=== PATIENT | female | born 1950 | race Caucasian/White ===

== ENCOUNTER 2019-11-30 13:49 | Outpatient (CLI) | payer MEDICARE, OTHER, SELFPAY ==
--- NOTE | 2019-11-30 14:15 | USCV_ITS ---
Angela Lawler Age: 69 Gender: F : 1950 Exam Date: 11/30/2019 13:58 Ordering Phys: Cara Stone MD ([email or web address]) Technologist: Jeannette Nascimento [place] [facility] [place]: HISTORY: Varicose Veins PROCEDURES: The venous duplex Doppler examination of both lower extremities was performed in the standard fashion. The following venous structures were evaluated: common femoral vein, , The greater saphenous vein, femoral vein, and the popliteal vein. In addition, the posterior tibial and ssvserial compression, augmentation maneuvers, and spectral Doppler flow evaluation were performed. An evaluation for venous insufficiency was also completed. . FINDINGS: No DVT or Thrombus seen in any vessel examined. Only 1 point of reflux seen and that was at the SFJ. All images were done upright CONCLUSIONS No evidence of DVT in the above-mentioned identifiable veins. Significant venous reflux of greater than 500 ms was noted at the left saphenofemoral junction. Venous segment is measuring 0.66 cm at this region No other significant venous reflux were noted The venous dimensions, reflux time and depth from the surface are as mentioned above Dr Corine Vargas MD [facility] (Electronically Signed) Final Date: 30 Nov 2019 17:02 S
== END 2019-11-30 13:50 | disposition home or self-care (01) ==
LOC: RAD 13:51
PROVIDERS: Family Provider Registered Nurse; PCP Registered Nurse; Visit Provider Internal Medicine Cardiovascular Disease
DX: I83.93 Asymptomatic varicose veins of bilateral lower extremities (principal)
CPT/HCPCS: 93970

== ENCOUNTER → 2020-01-22 08:32 | Outpatient (BNVA) | payer MEDICARE, OTHER, SELFPAY | PROVIDERS: Family Provider Registered Nurse; PCP Registered Nurse; Visit Provider Internal Medicine Cardiovascular Disease | DX: I48.20 Chronic atrial fibrillation, unspecified (principal); I83.893 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 complications | CPT/HCPCS: 80048; 85025; 87635 ==

== ENCOUNTER → 2020-01-30 05:55 | Day surgery (SDC) | payer MEDICARE, OTHER, SELFPAY ==
[2020-01-25 12:23] VITALS: BMI 32.2
[2020-01-28 06:15] VITALS: BP 116/87; PULSE 98; RESP 17; TEMP 36.4; O2SAT 96
--- NOTE | 2020-01-28 07:09 | SUR.PREOP ---
PROCEDURE CANCEL [Patient brought back to [facility]. Prepped for procedure. Home medications verified. Patient noted to have taken Xarelto this morning. Dr Stone notified of findings, he reports that patient should reschedule with 24 hour minimum hold of xarelto. Patient notified of MD request and will comply with the need as she understands that the success of the procedure is related to the ability of her body to form clots. Patient dressed and discharged in stable condition. I will call her with reschedule date/time as scheduling is not open to coordinate the reschedule with ultrasound. I gave the patient the updated list of insructions and medication holds for procedure as follows: Hold Xarelto, Aspirin and Lasix for 24 hours prior to the procedure. She verbalized understanding.
--- NOTE | 2020-01-28 08:43 | SUR.PREOP ---
RESCHEDULE DATE/TIME Patient notified of procedure date/time. Rescheduled for TuesdayJanuary 29 at 0700 with a check in time of 0600. Patient aware of appointment date/time. One change per Dr Stone. Hold xarelto 48 hours prior to test instead of 24 hours. Patient made aware over the telphone. Verb Understanding. States she will be here tuesday at 6 am.
[2020-01-30 06:51] VITALS: BP 103/89; PULSE 82; RESP 16; TEMP 36.6; O2SAT 96
[2020-01-30] MEDS: diazePAM 5 mg Tablet 10 MG PO (07:10)
--- NOTE | 2020-01-30 08:27 | W.PM.OPSUD ---
Surgery/Procedure H&P Update DATE OF PROCEDURE: January 30, 2020 DATE H&P PERFORMED: 01/30/20 H&P UPDATE INFORMATION: I have examined patient prior to procedure and No changes to prior documentation PREOP DIAGNOSIS: Significant venous reflux with chronic venous insufficiency symptomatic failed conservative management PLANNED PROCEDURE: Operation Date: 01/30/20 07:00 Proposed Procedures p Venous Ablations(Not Applicable) - Cara Stone MD
--- NOTE | 2020-01-30 08:29 | P.SS_ITS ---
Short Stay Summary Providers Date of Admit/Discharge: 01/30/20 Attending Provider: Cara Stone MD Primary Care Provider: LYNETTE Robert Chief Complaint: venous ablation HPI History of Present Illness Angela Lawler is a 69 year old female past medical history significant for hypertension chronic atrial fibrillation history of TIA chronic varicose veins symptomatic with significant more than 500 ms of reflux and negative DVT who failed conservative management including compression stocking for more than 3 months was seen by me this morning for a radiofrequency ablation of left great saphenous vein. Patient has been explained all risk benefit and alternative for the procedure. She would like to proceed with it. Home Meds/Allergies Home Medications and Allergies Home Medications Medication Instructions Recorded Confirmed Type aspirin 81 mg tablet,delayed 81 mg PO ONCE 07/09/19 01/30/20 History release omeprazole 40 mg capsule,delayed 40 mg PO .COMPLEX 07/09/19 01/25/20 History release Allergies Allergy/AdvReac Type Severity Reaction Status Date / Time meperidine [From Demerol] AdvReac Mild Nausea,vomi Verified 01/29/20 09:36 ting PFSH Acute PFSH: Medical History (Updated 01/30/20 @ 08:43 by Cara Stone MD) Atrial fibrillation Advised to take sotalol. Resume Xarelto and 48 hours 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 complications Patient will going for left great saphenous vein ablation. All risk benefit and alternative for the procedure has been explained she would like to proceed with it.CEAP classification C4a Family History Sister Cancer Mother Hypertension Heart failure Father Stroke Social History Smoking and tobacco status: former smoker Alcohol intake: current Alcohol intake frequency: 0-2 Drinks per Day Lives independently: Yes Marital status: Current occupational status: retired Current gender identity: Female Vitals/I&O/Wt Last Vital Signs Temp 97.9 F 01/30/20 06:51 Pulse 82 01/30/20 06:51 Resp 16 01/30/20 06:51 BP 103/89 01/30/20 06:51 Pulse Ox 96 01/30/20 06:51 Physical Exam Narrative: EXAM NARRATIVE: GENERAL: Patient is alert, awake and oriented x3. NECK: No jugular vein distension. HEENT: No cyanosis. No icterus. No pallor. HEART: Irregularly irregular S1 and S2. No murmur, rub or gallop. LUNGS: Clear to auscultate bilaterally. ABDOMEN: Soft, nontender and nondistended. Positive bowel sounds. No guarding, rebound or tenderness. CENTRAL NERVOUS SYSTEM: Grossly nonfocal. EXTREMITIES: Lower extremities with 1+ edema bilaterally. Obvious varicose veins with staining bilaterally more on the left than right Hospital Course Admission Diagnoses: Patient was admitted for few hours as outpatient in the bed for venous ablation. She underwent left great saphenous venous ablation without any complication. She is being discharged. SSS Data Data Completed and Pending: Pending at discharge Category Date Time Status CV guide venous a blation Routine Ultrasound 01/30/20 06:00 Taken Diagnoses at Discharge Discharge Diagnosis (1) 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 complications: Status: Acute Problem details: Patient will going for left great saphenous vein ablation. All risk benefit and alternative for the procedure has been explained she would like to proceed with it.CEAP classification C4a (2) Atrial fibrillation: Status: Acute Problem details: Advised to take sotalol. Resume Xarelto and 48 hours Qualifiers: Atrial fibrillation type: unspecified chronic Qualified Code(s): I48.20 - Chronic atrial fibrillation, unspecified Discharge Plan Discharge Patient Disposition: Home, Self-Care Condition: Stable Prescriptions: Continued omeprazole 40 mg capsule,delayed release(DR/EC) 40 mg PO .COMPLEX RF: 0 aspirin 81 mg tablet,delayed release (DR/EC) 81 mg PO ONCE RF: 0 meclizine 12.5 mg tablet 25 mg PO Q6H PRN (Reason: dizziness) Qty: 20 RF: 0 pravastatin 40 mg tablet 40 mg PO DAILY Qty: 90 RF: 0 Xarelto 20 mg tablet 20 mg PO DAILY Qty: 90 RF: 0 furosemide 20 mg tablet See Rx Instructions .ROUTE .COMPLEX Qty: 15 RF: 0 triamterene-hydrochlorothiazid 37.5-25 mg tablet See Rx Instructions .ROUTE .COMPLEX Qty: 30 RF: 0 sotalol 120 mg tablet See Rx Instructions .ROUTE .COMPLEX Qty: 60 RF: 0 potassium chloride 20 mEq tablet,ER particles/crystals See Rx Instructions .ROUTE .COMPLEX Qty: 180 RF: 0 Discharge Orders: Discharge Order (Routine); Ordered 01/30/20 Ordered By: Cara Stone Referrals: Remberto Roberson FNP [Primary Care Provider] - Discharge Diet: Cardiac Discharge Activity: Increase activity as tolerated Patient Instructions: Ablation Home Discharge Instructions, Varicose Veins Attestations Medical Necessity Statement*: I am not expecting patient's stay for more than few hours Time Spent in Patient Care*: greater than 30 min Specific Discharge Activities: Specific discharge activities: educating patient and educating and/or supporting family/caregiver Quality Metrics Clinical Quality Measures: During this hospital stay, did patient experience: None Coding Level of Care Code Established Pt Acute Replanting Machine Crew for Chg Fwd Patient Type Established Medical Decision Making Moderate Complexity Diagnoses 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 complications I83.893 Atrial fibrillation I48.20 Atrial fibrillation type: unspecified chronic
--- NOTE | 2020-01-30 08:45 | P.PCN_ITS ---
Procedure Note: Date of procedure: 01/30/20 Pre-procedure diagnosis: Varicose vein symptomatic CEAP classification 4a Performing Provider: Cara Stone Estimated blood loss (mL): 1 Pathology: none sent Condition: stable Disposition: observation Other Information: The insufficient left great saphenous vein verified by ultrasound and diagrammed on the overlying skin. The varicose tributary veins and suitable access sites were identified and mapped. The affected area prepped and draped in the usual sterile fashion. The patient was placed in reverse Trendelenburg position. Tumescent was instilled in the skin overlying the access site for local anesthesia. The vein was accessed PROXIMAL, MID, DISTAL - THIGH/CALF using ultrasound guidance and the Seldinger technique, a guidewire was introduced through the needle, which was then exchanged over the guidewire for a 7F sheath. The RF catheter was placed on the sterile field, flushed and wiped down, prepared, and connected by a sterile cable. The patient was placed in Trendelenburg position. After RF catheter position was verified by ultrasound, tumescent anesthesia was infiltrated, under ultrasound guidance, precisely into the perivenous compartment along the entire length of vein. After the RF catheter position was again confirmed with ultrasound imaging, and under direct external compression along the length of the heating element, RF energy was applied. The vein was segmentally ablated until the treatment length is completed. Device temperature was maintained at 120 +/- degrees C with an initial power level of 40W dropping to below 20W for each treatment. Total vein length treated 48 cm. Total cycles of RF [14]. Time 4 minutes and 40 seconds. Repeat ultrasound of the left great saphenous vein was performed, confirming successful treatment. The catheter and sheath were withdrawn and hemostasis established with direct pressure. After assuring hemostasis, the skin incision over the saphenous vein was closed with a bandage and graduated compression stockings was applied from the level of the foot to the most proximal length of the thigh. Tumescent used 300 mL Tumescent waste 200 mL Normal saline waste 240 mL Lidocaine waste 12 mL Coding Level of Care Code Acute Band Straightener for Julian Hays
[2020-01-30 09:19] VITALS: BP 91/71; PULSE 99; RESP 16; O2SAT 95
--- NOTE | 2020-01-30 09:19 | PC.NURSE ---
Discharged Venous ablation complete on LLE, pt tolerated procedure well. LLE wrapped with 2 layer coflex wrap, no drainage noted. Discharge instructions reviewed with pt and all questions answered. Taken to lobby via w/c and discharged home with friend via private vehicle.
== END | disposition home or self-care (01) ==
PROVIDERS: PCP Registered Nurse; Visit Provider Internal Medicine Cardiovascular Disease
DX: I83.893 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 complications (principal); I48.20 Chronic atrial fibrillation, unspecified; Z79.01 Long term (current) use of anticoagulants
CPT/HCPCS: 12345; 36475; C1769; C1888; C1894; J7040; J7050

== ENCOUNTER 2020-02-04 10:27 | Outpatient (CLI) | payer MEDICARE, OTHER, SELFPAY ==
--- NOTE | 2020-02-04 11:03 | USCV_ITS ---
Angela Lawler Age: 69 Gender: F : 1950 Exam Date: 02/04/2020 10:57 Ordering Phys: Cara Stone MD ([email or web address]) Technologist: Hussain Monteiro Exam Location: [facility] – [place] Indication: POST ABLATION HISTORY: POST LT ABLATION PROCEDURES: Venous duplex imaging was performed in only the left lower extremity. The following venous structures were evaluated: common femoral vein, profunda vein, proximal portion of the greater saphenous vein, superficial femoral vein, and the popliteal vein. FINDINGS: NORMAL POST ABLATION ANATOMY GOOD FLOW IN EPIGASIC VEIN NORMAL ABLATED GSAPH LT. NO DVT CONCLUSIONS 1. Patent saphenofemoral junction and inferior epigastric vein. 2. The greater saphenous vein appears to be ablated. 3. No evidence of DVT in the above-mentioned identifiable veins Dr Corine Vargas MD [facility] (Electronically Signed) Final Date: 06 February 2020 00:37 S
== END 2020-02-04 10:28 | disposition home or self-care (01) ==
PROVIDERS: PCP Registered Nurse; Visit Provider Internal Medicine Cardiovascular Disease
DX: Z98.890 Other specified postprocedural states (principal); I83.893 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 complications
CPT/HCPCS: 93970

== ENCOUNTER 2020-07-08 09:50 | Outpatient (CLI) | payer MEDICARE, OTHER, SELFPAY ==
--- NOTE | 2020-07-08 09:56 | MM_ITS ---
WS: [id number] Exam: [id number] Date/Time of Exam: 07/08/2020 10:01 AM Reason For Exam: SCREENING VIEWS: MLO and CC views both breasts. Comparison made with prior exam of 05/05/2017. Findings: There was no sign of mass, architectural distortion or suspicious calcification in either breast. He terogeneously dense MM/[id number] Impression: BI-RADS: 2-Benign FOLLOW-UP: 1 Year Follow-up This mammogram was also analyzed by the Computer Aided Detection System R2 Imag e Credit Office Manager.
== END 2020-07-08 09:51 | disposition home or self-care (01) ==
LOC: RADSHAW 09:55
PROVIDERS: PCP Registered Nurse; Visit Provider Registered Nurse
DX: Z12.31 Encounter for screening mammogram for malignant neoplasm of breast (principal)
CPT/HCPCS: 77067

== ENCOUNTER 2021-05-21 14:52 | Outpatient (CLI) | payer MEDICARE, OTHER, SELFPAY ==
--- NOTE | 2021-05-21 15:45 | USCV_ITS ---
Angela Lawler Age: 70 Gender: F : 1950 Exam Date: 05/21/2021 15:03 Ordering Phys: Akila Roldan Technologist: Jeannette Nascimento [place] [facility] [place]ication: CHRONIC ATRIAL FIBRILLATION BP: 125 / 70 HR: 112 Rhythm: Sinus Technical Quality: Technically difficult study MEASUREMENTS (Male / Female) Normal Values 2D ECHO LV Diastolic Diameter PLAX 2.0 cm 4.2 - 5.9 / 3.9 - 5.3 cm LV Systolic Diameter PLAX 2.5 cm LV Chamber Size 2.5 cm IVS Diastolic Thickness 1.2 cm 0.6 - 1.0 / 0.6 - 0.9 cm IVS Systolic Thickness 1.0 cm LVPW Diastolic Thickness 1.3 cm 0.6 - 1.0 / 0.6 - 0.9 cm LVPW Systolic Thickness 1.4 cm RV Chamber Size 2.7 cm LVOT Diameter 2.0 cm LV Ejection Fraction 2D Teich 59.7 % LA Diameter 3.4 cm LA Width 2.9 cm LA Height 4.8 cm RA Width 3.4 cm RA Height 4.6 cm Aorta at Sinotubular Diameter 2.9 cm M-MODE LV Diastolic Diameter MM 4.3 cm 4.2 - 5.9 / 3.9 - 5.3 cm LV Systolic Diameter MM 3.0 cm LV Ejection Fraction MM Teich 58.1 % IVS Diastolic Thickness MM 1.0 cm 0.6 - 1.0 / 0.6 - 0.9 cm IVS Systolic Thickness MM 1.0 cm LVPW Diastolic Thickness MM 0.9 cm 0.6 - 1.0 / 0.6 - 0.9 cm LVPW Systolic Thickness MM 1.2 cm Aortic Annulus Diameter 3.4 cm LA Ao Ratio MM 0.8 MV E Point Septal Separation 0.3 cm DOPPLER LVOT Peak Velocity 91.0 cm/s MV Area PHT 3.3 cm squared Mitral E to A Ratio 46.7 MV E' Velocity 58.5 cm/s Mitral E to MV E' Ratio 11.7 Mitral E to LV E' Lateral Ratio 12.7 Mitral E to LV E' Septal Ratio 10.9 TR Peak Velocity 186.0 cm/s TR Peak Gradient 13.8 mmHg TR Mean Velocity 153.4 cm/s TR Mean Gradient 10.1 mmHg TR Velocity Time Integral 46.1 cm TV Peak E Velocity 74.0 cm/s PV Peak Velocity 77.0 cm/s FINDINGS Left Ventricle Normal left ventricular size. LV systolic function is normal with EF of 55-60%. No regional wall motion abnormalities. Diastolic function is indeterminate because of atrial fibrillation Right Ventricle The right ventricle is normal in size and function. Right Atrium The right atrium is normal in size. Left Atrium The left atrium is normal in size. Mitral Valve Mild mitral annular calcification without significant stenosis or prolapse. There is trace mitral regurgitation. Aortic Valve Structurally normal aortic valve without significant sclerosis or stenosis. There is no aortic regurgitation. Tricuspid Valve Structurally normal tricuspid valve without significant stenosis. Mild tricuspid regurgitation. Pulmonary artery systolic pressure is normal. Pulmonic Valve Structurally normal pulmonic valve without significant stenosis. There is no pulmonic regurgitation. Pericardium Normal pericardium without effusion. Aorta Normal ascending aorta dimension. CONCLUSIONS Technically limited quality echocardiogram because of poor ultrasonic windows. LV systolic function is normal with EF of 55 to 60%. Diastolic function is indeterminate because of atrial fibrillation. Trace mitral regurgitation is seen. Mild tricuspid regurgitation. No comparison studies are available. Tim Hernandez MD (Electronically Signed) Final Date: 25 May 2021 10:05 S
== END 2021-05-21 14:53 | disposition home or self-care (01) ==
LOC: RAD 14:53
PROVIDERS: PCP Registered Nurse; Visit Provider Nurse Practitioner Family
DX: I48.20 Chronic atrial fibrillation, unspecified (principal); I08.1 Rheumatic disorders of both mitral and tricuspid valves
CPT/HCPCS: 93306

== ENCOUNTER → 2021-06-16 10:31 | Outpatient (BNVA) | payer MEDICARE, OTHER, SELFPAY | PROVIDERS: PCP Registered Nurse; Visit Provider Internal Medicine Cardiovascular Disease | DX: I48.20 Chronic atrial fibrillation, unspecified (principal); I83.893 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 complications | CPT/HCPCS: 87635 ==

== ENCOUNTER 2021-06-22 11:03 | Day surgery (SDC) | payer MEDICARE, OTHER, SELFPAY ==
[2021-06-19 14:24] VITALS: BMI 33.5
--- NOTE | 2021-06-22 11:15 | ECG_ITS ---
[facility] Test Date: 2021-06-22 Pat Name: Angela Lawler Department: Room: Gender: Female Area Manager: : 1950 Requested By: Cara Stone Order Number: [id number] Marcy MD: Corine Vargas M.D. Measurements Intervals [place] Rate: 117 P: CA: QRS: 7 QRSD: 81 T: 19 QT: 338 QTc: 472 Interpretive Statements ATRIAL FIBRILLATION WITH RAPID VENTRICULAR RESPONSE MINIMAL ST DEPRESSION [0.025+ mV ST DEPRESSION] ABNORMAL RHYTHM ECG No previous ECG available for comparison Electronically Signed On 06-24-2021 0:16:33 GRAIN BROKER AND MARKET OPERATOR by Corine Vargas M.D. [id number]
[2021-06-22 11:30] VITALS: BP 118/96; PULSE 114; RESP 18; TEMP 36.4; O2SAT 96
[2021-06-22] MEDS: sodium chloride 0.9% 1,000 ML 30 ML IV (11:49)
--- NOTE | 2021-06-22 12:08 | ANES.PREANE2 ---
Pre-Anesthetic Assessment Pre-Anesthetic Assessment: Height/Weight: Height 1.68 m Weight 94.347 kg Temp Pulse Resp BP Pulse Ox 97.5 F L 114 H 18 118/96 96 06/22/21 11:30 06/22/21 11:30 06/22/21 11:30 06/22/21 11:30 06/22/21 11:30 Preop Diagnosis: Significant venous reflux with chronic venous insufficiency symptomatic failed conservative management Proposed Procedure: Operation Date: 06/22/21 12:00 Proposed Procedures p Cardioversion(Not Applicable) - Cara Stone MD Was Beta Jarred taken within 24 hours: Yes Was Clonidine taken within 24 hours: N/A Last intake: Intake Last Liquid Date 06/21/21 Last Liquid Time 18:00 Last Solid Date 06/21/21 Last Solid Time 17:00 Social: Social History: No alcohol and No tobacco Exam: Pre-Anes Outpt Exam: alert, oriented x 3, clear to auscultation bilaterally and regular rate & rhythm Airway: Submandibular: WNL Cervical ROM: WNL MP: 2 CV/HEM: CV/HEM: Arrythmia GI: GI: GERD Metabolic: Metabolic: Hyperlipidemia Anesthetic Plan: ASA status: 3 Anesthesia: MAC Risk of > 500 ml blood loss (7ml/kg in children): No Meds/Allergies Current Medications: Current Medications Generic Name Dose Route Start Last Admin Trade Name Freq PRN Reason Stop Dose Admin Sodium Chloride 1,000 mls @ 30 ml s/hr 06/22/21 11:15 06/22/21 11:49 Sodium Chloride 0.9% IV 06/23/21 11:14 30 mls/hr .Q24H TRUDY Administration PFSH Anesthesia PFSH: Medical History Atrial fibrillation Enrolled in chronic care management GERD (gastroesophageal reflux disease) 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 complications Surgical History H/O tubal ligation History of cataract surgery 2010 History of tonsillectomy Family History Sister Cancer Mother Hypertension Heart failure Father Stroke Social History Alcohol intake: current Alcohol intake frequency: 0-2 Drinks per Day Lives independently: Yes Marital status: Current occupational status: retired Current gender identity: Female Data Anesthesia Cardiac Studies: Echocardiogram 05/21/21
--- NOTE | 2021-06-22 12:33 | ECG_ITS ---
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 Measurements Intervals [place] Rate: 108 P: GA: QRS: 8 QRSD: 90 T: 8 QT: 362 QTc: 487 Interpretive Statements ATRIAL FIBRILLATION WITH RAPID VENTRICULAR RESPONSE MINIMAL ST DEPRESSION [0.025+ mV ST DEPRESSION] ABNORMAL RHYTHM ECG Compared to ECG 06/22/2021 11:38:17 No significant changes Electronically Signed On 06-24-2021 0:16:54 MONEY MARKET CLERK by Corine Vargas M.D. [id number]
--- NOTE | 2021-06-22 12:39 | W.PM.OPSFHP ---
Same Day Surgery H&P Indication for Procedure/HPI DATE OF PROCEDURE: June 22, 2021 CHIEF COMPLAINT/INDICATIONFOR SURGICAL PROCEDURE: Symptomatic atrial fibrillation difficult to control PREOP DIAGNOSIS: Significant venous reflux with chronic venous insufficiency symptomatic failed conservative management PLANNED PROCEDRUE: Operation Date: 06/22/21 12:00 Proposed Procedures p Cardioversion(Not Applicable) - Cara Stone MD 70-year-old female atrial fibrillation difficult to control despite of optimization of medicine allergic to calcium channel lang due to leg swelling on sotalol for long period of time she is taking anticoagulation in the form of rivaroxaban 20 mg daily for the last more than 2 years without any interruption. She denies any prior TIA or stroke.CHADVASc score less than3, since she continues to have reliable continuation of persistent rivaroxaban chances of stroke from DC cardioversion is less however still 5%. Patient understood the risk for stroke permanent disability and would like to proceed with it. I have personally explained patient all risk benefit and already for the procedure. She will be given propofol by anesthesia. Please see anesthesia note. Medications/Allergies* Home Medications Medication Instructions Recorded Confirmed Type aspirin 81 mg tablet,delayed 81 mg PO DAILY tab 01/05/21 06/22/21 History release furosemide 10 mg PO DAILY 06/19/21 06/22/21 History omeprazole 40 mg PO DIRECTED 06/19/21 06/22/21 History pravastatin 40 mg PO DAILY 06/19/21 06/22/21 History rivaroxaban [Xarelto] 20 mg PO DAILY 06/19/21 06/22/21 History sotalol 120 mg PO BID 06/19/21 06/22/21 History triamterene-hydrochlorothiazid 1 tab PO DAILY 06/19/21 06/22/21 History Allergies/Adverse Reactions Allergy/AdvReac Type Severity Reaction Status Date / Time meperidine [From Demerol] AdvReac Mild Nausea,vomi Verified 06/19/21 14:19 ting Current Medications: Generic Name Dose Route Start Last Admin Trade Name Freq PRN Reason Stop Dose Admin Sodium Chloride 1,000 mls @ 30 mls/hr 06/22/21 11:15 06/22/21 11:49 Sodium Chloride 0.9% IV 06/23/21 11:14 30 mls/hr .Q24H TRUDY Administration Pertinent History/Comorbid Conditions* Medical History (Updated 05/26/21 @ 10:05 by LYNETTE Robert) Atrial fibrillation Enrolled in chronic care management GERD (gastroesophageal reflux disease) 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 complications Surgical History (Updated 05/15/20 @ 09:47 by LYNETTE Robert) H/O tubal ligation History of cataract surgery 2009 History of tonsillectomy Family History (Updated 07/09/19 @ 14:12 by Zabrina Smith LPN) Heart failure Mother Cancer Sister Hypertension Mother Stroke Father Social History Alcohol intake: current Alcohol intake frequency: 0-2 Drinks per Day Lives independently: Yes Marital status: Current occupational status: retired Current gender identity: Female Pertinent Exam Findings alert, oriented x 3, clear to auscultation bilaterally and regular rate & rhythm (Irregularly irregular) Recommendations Surgery/Procedure today Coding Level of Care Code Acute Laboratory Technical Specialist for Julian Hays
--- NOTE | 2021-06-22 12:54 | W.PM.OPSUD ---
Surgery/Procedure H&P Update DATE OF PROCEDURE: June 22, 2021 DATE H&P PERFORMED: 06/22/21 H&P UPDATE INFORMATION: I have reviewed H&P completed within last 30 days, I have examined patient prior to procedure and No changes to prior documentation PREOP DIAGNOSIS: Uncontrolled symptomatic atrial fibrillation, electrical cardioversion PLANNED PROCEDURE: Operation Date: 06/22/21 12:00 Proposed Procedures p Cardioversion(Not Applicable) - Cara Stone MD
--- NOTE | 2021-06-22 13:31 | PM.PROC ---
Procedure Note: Date of procedure: 06/22/21 Other Information: Reason for cardioversion: Uncontrolled symptomatic atrial fibrillation After explaining in detail all risk benefit and alternative for the procedure under sterilized condition propofol was administered by anesthesia colleagues. After confirming deep sedation synchronized 150 J biphasic shock was delivered to the patient. Patient converted into sinus rhythm for 20 seconds and went back into A. fib with rapid ventricle response. Second shock of 150 J using biphasic defibrillator was delivered. Patient did not convert into sinus rhythm. We then increase setting to 200 J after conversion being deep anesthesia third set of electrical cardioversion defibrillator impulse was delivered patient converted into sinus rhythm for 5 seconds and went back into atrial fibrillation. At this point we stopped the procedure. It was unsuccessful. Will refer patient for A. fib ablation. I will try to add verapamil to the regimen see whether it can cause her less swelling of the legs. Other option is referring the patient for ablation. Coding Level of Care Code Acute Electronic Warfare Linguist for Julian Hays
[2021-06-22 13:33] VITALS: BP 107/74; PULSE 130; RESP 18; TEMP 36.6; O2SAT 93
[2021-06-22 13:40] VITALS: BP 114/77; PULSE 114; RESP 18; O2SAT 93
--- NOTE | 2021-06-22 15:03 | ANE.PACU2 ---
Inpatient post-anesthesia follow up: Airway intact: Yes Vital signs: Temperature 97.8 F Pulse Rate 114 Respiratory Rate 18 Blood Pressure 114/77 Pulse Oximetry 93 Oxygen Delivery Me thod Room Air Oxygen Flow Rate Fraction of Inspir ed Oxygen Hydration adequate: Yes Nausea and vomiting: No Pain level: 1 Mental status: Baseline
== END 2021-06-22 14:32 | disposition home or self-care (01) ==
PROVIDERS: PCP Registered Nurse; Visit Provider Internal Medicine Cardiovascular Disease
PROC: 5A2204Z Restoration of Cardiac Rhythm, Single (ICD-10-PCS; principal; 2021-06-22 12:00)
DX: I87.2 Venous insufficiency (chronic) (peripheral) (principal); I48.91 Unspecified atrial fibrillation; M79.89 Other specified soft tissue disorders; I83.893 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 complications; K21.9 Gastro-esophageal reflux disease without esophagitis; E78.5 Hyperlipidemia, unspecified
CPT/HCPCS: 92960; 93005; 96360; 96361; J2704; J3490; J7030

== ENCOUNTER 2021-08-06 13:42 | Outpatient (CLI) | payer MEDICARE, OTHER, SELFPAY ==
--- NOTE | 2021-08-06 14:30 | MM_ITS ---
WS: [id number] BILATERAL DIGITAL SCREENING MAMMOGRAPHY WITH CAD CLINICAL INFORMATION: Z12.31 - Encounter for screening mammogram for malignant ... HISTORY: Screening mammogram. No current complaints. COMPARISON: July 08, 2020 TECHNIQUE: Bilateral CC and MLO views. FINDINGS: The breasts are composed of heterogeneous fibroglandular density tissue, which can limit the detectio n of small underlying mass lesions. Punctate and lucent centered calcifications. No suspicious mass, asymmetry, calcifications, or architectural distortion. No evidence of malignancy. MM/[place] [id number] IMPRESSION: BI-RADS: 2-Benign FOLLOW UP: 1 Year Follow-up Recommend return to annual screening mammography.
== END 2021-08-06 13:43 | disposition home or self-care (01) ==
LOC: RADSHAW 13:48
PROVIDERS: PCP Registered Nurse; Visit Provider Registered Nurse
DX: Z12.31 Encounter for screening mammogram for malignant neoplasm of breast (principal)
CPT/HCPCS: 77067

== ENCOUNTER 2021-08-25 09:15 | Outpatient (CLI) | payer MEDICARE, OTHER, SELFPAY ==
--- NOTE | 2021-08-25 09:30 | XR_ITS ---
WS: [id number] SCREENING DEXA SCAN [place] CLINICAL INFORMATION: M81.0 - Age-related osteoporosis without current patholog... COMPARISON: None. FINDINGS: The L1-L4 bone mineral density measures 1.885 g/cm2. This corresponds to a T score score of 5.9 and Z score of 6.4. Left femoral neck bone mineral density measures 1.094 g/cm2. This corresponds to a T score of 0.7 and Z score of 1.5. Right femoral neck bone mineral density measures 1.047 g/cm2. This corresponds to a T score 0.3of and Z score of 1.1. Mean femoral neck bone mineral density measures 1.071 g/cm2. This corresponds to a T score of 0.5 and Z score of 1.3. XR/XR DEXA axial skeleton* [id number] IMPRESSION: Normal bone mineralization. Patient's FRAX calculated 10 year probability for major osteoporotic fracture i s 12.0 % and osteoporotic hip fracture is 1.0%.
== END 2021-08-25 09:16 | disposition home or self-care (01) ==
PROVIDERS: PCP Registered Nurse; Visit Provider Registered Nurse
DX: M81.0 Age-related osteoporosis without current pathological fracture (principal)
CPT/HCPCS: 77080

== ENCOUNTER → 2021-09-17 10:11 | Outpatient (BNVA) | payer MEDICARE, OTHER, SELFPAY | PROVIDERS: PCP Registered Nurse; Visit Provider Internal Medicine Cardiovascular Disease | DX: I48.20 Chronic atrial fibrillation, unspecified (principal); E78.5 Hyperlipidemia, unspecified; I10 Essential (primary) hypertension | CPT/HCPCS: 99214; 99215 ==

== ENCOUNTER → 2022-04-08 15:10 | Outpatient (BNVA) | payer MEDICARE, OTHER, SELFPAY | PROVIDERS: PCP Registered Nurse; Visit Provider Internal Medicine Cardiovascular Disease | DX: Z79.01 Long term (current) use of anticoagulants (principal); R53.83 Other fatigue; R06.02 Shortness of breath; N18.9 Chronic kidney disease, unspecified; I48.20 Chronic atrial fibrillation, unspecified; E78.5 Hyperlipidemia, unspecified; I10 Essential (primary) hypertension; I83.93 Asymptomatic varicose veins of bilateral lower extremities; Z87.891 Personal history of nicotine dependence | CPT/HCPCS: 36415; 80048; 83880; 84443; 85025; 99214 ==

== ENCOUNTER 2022-04-13 08:22 | Outpatient (RCR) | payer MEDICARE, OTHER, SELFPAY | END 2022-05-10 23:59 | disposition home or self-care (01) | LOC: SPT 08:22 | PROVIDERS: PCP Registered Nurse; Visit Provider Registered Nurse | DX: M25.552 Pain in left hip (principal); M76.62 Achilles tendinitis, left leg | CPT/HCPCS: 97110; 97162 ==

== ENCOUNTER 2022-05-11 06:00 | Outpatient (RCR) | payer MEDICARE, OTHER, SELFPAY | END 2022-06-09 23:59 | disposition home or self-care (01) | LOC: SPT 06:00 | PROVIDERS: PCP Registered Nurse; Visit Provider Registered Nurse | DX: M25.552 Pain in left hip (principal); M76.62 Achilles tendinitis, left leg | CPT/HCPCS: 97110 ==

== ENCOUNTER → 2022-05-20 13:48 | Outpatient (BNVA) | payer MEDICARE, OTHER, SELFPAY | PROVIDERS: PCP Registered Nurse; Referring Provider Registered Nurse; Visit Provider Physician Assistant | DX: M54.42 Lumbago with sciatica, left side (principal); M51.37 Other intervertebral disc degeneration, lumbosacral region; M47.816 Spondylosis without myelopathy or radiculopathy, lumbar region; M41.56 Other secondary scoliosis, lumbar region; M43.16 Spondylolisthesis, lumbar region; M48.57XA Collapsed vertebra, not elsewhere classified, lumbosacral region, initial encounter for fracture | CPT/HCPCS: 72110; 99203 ==

== ENCOUNTER 2022-06-07 08:20 | Outpatient (CLI) | payer MEDICARE, OTHER, SELFPAY ==
--- NOTE | 2022-06-07 09:15 | MR_ITS ---
WS: [id number] MRI LUMBAR SPINE NONCONTRAST HISTORY: Chronic back pain radiating down LEFT leg. COMPARISON: 04/26/2018 TECHNIQUE: Sagittal and axial multisequence imaging is submitted. Mild increase in the cervical lordosis and thoracic kyphosis. Mild degenerative disc disease and face t arthritis at C4-5 and C5-6 encroaching into the central cervical canal. Mild increase in the lumbar lordosis with LEFT curvature. Disc spaces are narrowed and desiccated throughout but most significant at L2-3, L3-4, L4-5 and L5-S1 . Marrow edema involving a large portion of the L4 and L5 vertebral bodies. Endplate sclerosis at L2 and L3. L2 retrolisthesis by 5.5 mm, L3 retrolisthesis by 5.0 mm and L4 retrolisthesis by 3.0 mm. Similar to the prior study. No acute fractures. Conus terminates normally at L1-2 disc level. L1-L2: Negative. No stenosis. L2-L3: Retrolisthesis of L2, mild diffuse disc bulging with moderate facet arthritis. Facet joint art hritis and ligamentum flavum arthritis encroaching into the thecal sac and foramina. Severe stenosis of the RIGHT foramen and subarticular recess. Stenosis appears increased since the prior study. No si gnificant stenosis on the LEFT. Mild central stenosis. The traversing RIGHT L3 nerve root is being di splaced and compressed. L3-L4: Diffuse annular disc bulging and osteophytic ridging. Marked ligamentum flavum and facet arthr itis. Increase in epidural fat. Severe central, bilateral subarticular recess and foraminal stenosis similar to the prior study. Less fluid in the facet joints. L4-L5: Diffuse annular disc bulging and osteophytic ridging. New moderate size central disc protrusio n with significant encroachment into the thecal sac and greatest involving the LEFT lateral recess an d foramina. Marked ligamentum flavum and facet arthritis. There is severe central, bilateral subartic ular recess and foraminal stenosis which has all progressed since the prior study. Fluid in the LEFT facet joint. L5-S1: Mild osteophytic ridging with ligamentum flavum and facet arthritis. Moderate to severe bilate ral foraminal stenosis predominantly due to osteophyte disease. Stenosis has also progressed since prior study. Previously described synovial cyst at L3 and L4 have decreased in size or resolved. Small LEFT renal cysts. MR/MR lumbar spine wo con* [id number] IMPRESSION: 1. Progression of stenoses and degenerative disc and facet arthritis throughou t the lumbar spine since 04/26/2018. 2. Severe RIGHT foraminal and RIGHT subarticular recess stenosis at L2-3 with progression since the prior study. Significant encroachment upon the RIGHT L3 n erve root. 3. Severe central, bilateral subarticular recess and foraminal stenosis at L3- 4. 4. New moderate size central disc protrusion at L4-5 with significant encroach ment into the thecal sac and LEFT lateral recess and foramina. Severe central, bilateral subarticular recess and foraminal stenosis at L4-5 has progressed. 5. Moderate to severe bilateral foraminal stenosis at L5-S1 due to disc and os teophyte disease. Mild progression since the prior study. 6. Retrolisthesis L2, L3 and L4 again identified and stable.
== END 2022-06-07 08:21 | disposition home or self-care (01) ==
LOC: RAD 08:23
PROVIDERS: PCP Registered Nurse; Visit Provider Physician Assistant
DX: M48.061 Spinal stenosis, lumbar region without neurogenic claudication (principal); M51.26 Other intervertebral disc displacement, lumbar region; M48.07 Spinal stenosis, lumbosacral region
CPT/HCPCS: 72148

== ENCOUNTER 2022-06-10 06:00 | Outpatient (RCR) | payer MEDICARE, OTHER, SELFPAY | END 2022-06-29 23:59 | disposition home or self-care (01) | LOC: SPT 06:00 | PROVIDERS: PCP Registered Nurse; Visit Provider Registered Nurse | DX: M54.42 Lumbago with sciatica, left side (principal); Z98.1 Arthrodesis status | CPT/HCPCS: 99214 ==

== ENCOUNTER 2022-06-21 13:47 | Inpatient (IN) | payer MEDICARE, OTHER, SELFPAY ==
[2022-06-17 09:35] VITALS: BMI 35.5
--- NOTE | 2022-06-17 10:31 | ECG_ITS ---
[facility] Test Date: 2022-06-17 Pat Name: Angela Lawler Department: Room: Gender: Female Manager Icu: : 1950 Requested By: Willie Suazo Order Number: [id number] Marcy MD: Tim Hernandez M.D. Measurements Intervals [place] Rate: 84 P: 0 AL: 0 QRS: 43 QRSD: 89 T: 55 QT: 366 QTc: 433 Interpretive Statements ATRIAL FIBRILLATION MINIMAL ST DEPRESSION [0.025+ mV ST DEPRESSION] Compared to ECG 06/22/2021 13:39:01 No significant changes Electronically Signed On 06-17-2022 13:48:09 AUDIT CLERKS SUPERVISOR by Tim Hernandez M.D. [id number]
[2022-06-17 10:35] LABS: Basophils # 0.1 10^3/uL (0.0-0.1); Basophils % 0.8 %; Eosinophils # 0.3 10^3/uL (0.0-0.8); Eosinophils % 5.4 %; Hematocrit 40.6 % (37.0-47.0); Hemoglobin 12.6 g/dL (11.5-15.3); Lymphocytes # 1.1 10^3/uL (0.8-4.8); Lymphocytes % 18.6 %; Mean Corpuscular Hemoglobin 27.3 pg (28.0-34.0); Mean Corpuscular Volume 87.9 fl (81-99); Mean Platelet Volume 9.3 fL (7.4-10.4); Monocytes # 0.6 10^3/uL (0.2-0.9); Monocytes % 9.3 %; Neutrophils # 4.02 10^3/uL (1.8-7.7); Neutrophils % 65.6 %; Nucleated Red Blood Cells % 0 %; Platelet Count 555 10^3/cmm (130-400); Red Blood Count 4.62 10^6/uL (4.1-5.3); Red Cell Distribution Width 14.6 % (12.1-15.1); White Blood Count 6.1 10^3/uL (4.0-10.0)
[2022-06-17 11:14] LABS: Anion Gap 17.4 (5-19); Blood Urea Nitrogen 15 mg/dL (8-23); Calcium 9.5 mg/dL (8.5-10.5); Carbon Dioxide 28 mmol/L (22-29); Chloride 97 mmol/L (98-107); Glucose 120 mg/dL (65-115); Osmolality Calculated 290 mOsm/kg (285-295); Potassium 3.4 mmol/L (3.5-5.1); Sodium 139 mmol/L (136-145)
--- NOTE | 2022-06-17 13:33 | P.ANESASSM_ITS ---
Pre-Anesthetic Assessment Height/Weight: Height 1.68 m Weight 99.79 kg Preop Diagnosis: Uncontrolled symptomatic atrial fibrillation, electrical cardioversion Operation Date: 06/21/22 10:30 Proposed Procedures p Spinal Fusion L1-SACRUM [id number](Not Applicable) - Vasquez Sosa DO Familial anesthetic complications: none Was Beta Jarred taken within 24 hours: Yes Was Clonidine taken within 24 hours: N/A Social No alcohol and No tobacco Exam alert, oriented x 3 and clear to auscultation bilaterally irregular HR Airway Submandibular: within normal limits Cervical ROM: within normal limits Mallampati: Class II Dentition: partials CV/HEM Atrial Fibrillation and Hypertension GI Gastroesophageal Reflux Disease Metabolic Hyperlipidemia and Morbid Obesity Musc/skel Lower Back Pain Neuropsych Transient Ischemic Attack Anesthetic Plan ASA status: 3 Anesthesia: General Other: Discussed a.line, transfusion and possible ICU admission Medications/Allergies Home Medications Medication Instructions Recorded Confirmed Last Taken Type furosemide 20 mg tablet 10 - 20 mg PO DAILY #90 tabs 10/27/21 06/17/22 Unknown Rx metoprolol tartrate 50 mg tablet 50 mg PO BID 10/27/21 06/17/22 Unknown History triamterene 37.5 See Rx Instructions .Route 10/27/21 06/17/22 Unknown Rx mg-hydrochlorothiazide 25 mg tablet .COMPLEX #90 tabs rivaroxaban 20 mg tablet (Xarelto) See Rx Instructions .Route 04/19/22 06/17/22 Unknown Rx .COMPLEX #90 tabs pantoprazole 20 mg tablet,delayed 20 mg PO DAILY 30 days #30 tabs 06/04/22 06/17/22 Unknown Rx release tramadol 50 mg tablet 50 mg PO BID PRN pain 30 days #20 06/04/22 06/17/22 Unknown Rx tabs potassium chloride 20 mEq See Rx Instructions .Route 06/14/22 06/17/22 Unknown Rx tablet,extended release(part/cryst) .COMPLEX #180 tabs pravastatin 40 mg tablet See Rx Instructions .Route 06/14/22 06/17/22 Unknown Rx .COMPLEX #90 tabs Bone Growth Stimulator E0748 #1 ea 06/16/22 Unknown Rx intraoperative neuromonitoring #1 ea 06/16/22 Unknown Rx Allergies Allergy/AdvReac Type Severity Reaction Status Date / Time verapamil AdvReac Intermediate Unknown Verified 05/20/22 13:51 meperidine [From Demerol] AdvReac Mild Nausea,vomi Verified 05/20/22 13:51 ting diltiazem [From Cardizem] AdvReac Unknown Verified 05/20/22 13:51 [facility] Anesthesia Medical History Atrial fibrillation Contact dermatitis due to plant Enrolled in chronic care management GERD (gastroesophageal reflux disease) History of fracture of left hip 1977 (no surgery) History of fractured pelvis 1977 Postmenopausal osteoporosis Right-sided low back pain with sciatica Screening mammogram, encounter for 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 complications Surgical History H/O tubal ligation History of cataract surgery 2009 History of tonsillectomy Family History Sister Cancer Mother Hypertension Heart failure CAD (coronary artery disease) Father Stroke Grandmother CAD (coronary artery disease) Family/Other CAD (coronary artery disease) Diabetes Suicide Denies family history of Clotting disorder Dementia Chronic kidney disease (CKD) Anesthesia complication Bleeding disorder Lung disease Social History Smoking and tobacco status: former smoker (stop in 1989) Alcohol intake: current Alcohol intake frequency: 0-2 Drinks per Day Lives independently: Yes Marital status: Current occupational status: retired Current gender identity: Female Data Anesthesia 06/17/22 10:05 06/17/22 10:05 Short CBC 06/17/22 Range/Units 10:05 WBC 6.1 (4.0-10.0) 10^3/uL Hgb 12.6 (11.5-15.3) g/dL Hct 40.6 (37.0-47.0) % MCV 87.9 (81-99) fl Plt Count 555 H (130-400) 10^3/cmm Neut % (Auto) 65.6 % Neut # (Auto) 4.02 (1.8-7.7) 10^3/uL BMP 06/17/22 10:05 Sodium 139 Potassium 3.4 L Chloride 97 L Carbon Dioxide 28 BUN 15 Creatinine 0.8 Glucose 120 H Calcium 9.5 Cardiac Studies: Echocardiogram 05/21/21
[2022-06-21] VITALS (29 sets, daily range): BP systolic 84–132; BP diastolic 51–85; PULSE 88–119; RESP 11–29; TEMP 36.1–37; O2SAT 93–98; BMI 35.5
--- NOTE | 2022-06-21 | XR_ITS ---
WS: [id number] Lumbar spine, C-arm fluoroscopy views, 06/21/2022 Clinical Data: Lumbar fusion Comparison: Lumbar spine, 05/20/2022 Findings: Dr. Sosa on performed a posterior lumbosacral fusion with bilateral pedicle screws and connecting r ods. XR/XR lumbar spine 2-3V* [id number] Impression: Posterior lumbosacral fusion.
[2022-06-21] MEDS: sodium chloride 0.9% 1,000 ML 30 ML IV (07:21)
[2022-06-21 07:29] LABS: Basophils # 0.1 10^3/uL (0.0-0.1); Basophils % 0.6 %; Eosinophils # 0.4 10^3/uL (0.0-0.8); Eosinophils % 4.5 %; Hematocrit 40.6 % (37.0-47.0); Hemoglobin 12.9 g/dL (11.5-15.3); Lymphocytes % 11.4 %; Mean Corpuscular HGB Conc 31.8 g/dL (30.0-36.0); Mean Corpuscular Hemoglobin 27.4 pg (28.0-34.0); Mean Corpuscular Volume 86.4 fl (81-99); Mean Platelet Volume 9.4 fL (7.4-10.4); Monocytes # 0.8 10^3/uL (0.2-0.9); Neutrophils # 6.34 10^3/uL (1.8-7.7); Neutrophils % 74.3 %; Nucleated Red Blood Cells % 0 %; Platelet Count 484 10^3/cmm (130-400); Red Cell Distribution Width 14.3 % (12.1-15.1); White Blood Count 8.5 10^3/uL (4.0-10.0)
--- NOTE | 2022-06-21 08:12 | P.ANESUD_ITS ---
Pre-Anesthetic Update Pre-Anesthetic Assessment: Date of Surgery/Procedure: 06/21/22 Preop Cassie gnosis: DDD lumbosacral spine, lumbar stenosis, lumbar radiculopathy Proposed Procedure: Operation Date: 06/21/22 08:40 Proposed Procedures p Spinal Fusion L1-SACRUM [id number](Not Applicable) - Vasquez H Sheila, DO Any changes to Pre-Anesthetic Assessment?: No Last Intake: Intake Last Liquid Date 06/20/22 Last Liquid Time 19:00 Last Solid Date 06/20/22 Last Solid Time 17:00 Labs Last 48hrs: Short CBC 06/21/22 Range/Units 07:13 WBC 8.5 (4.0-10.0) 10^3/ uL Hgb 12.9 (11.5-15.3) g/dL Hct 40.6 (37.0-47.0) % MCV 86.4 (81-99) fl Plt Count 484 H (130-400) 10^3/c mm Neut % (Auto) 74.3 % Neut # (Auto) 6.34 (1.8-7.7) 10^3/u L Vitals: Temperature 97.4 F L 06/21/22 07:06 Temperature Source Temporal Artery S can 06/21/22 07:06 Pulse Rate 101 H 06/21/22 07:06 Respiratory Rate 18 06/21/22 07:06 Blood Pressure 132/78 06/21/22 07:06 Blood Pressure Luisa n 96 06/21/22 07:06 Pulse Oximetry 96 06/21/22 07:06 Oxygen Delivery Me thod 06/21/22 07:06 Exam: Pre-Anes Outpt Exam: alert, oriented x 3, clear to auscultation bilaterally and regular rate & rhythm Cardiac Studies: Echocardiogram 05/21/21
--- NOTE | 2022-06-21 08:17 | W.PM.OPSUD ---
Surgery/Procedure H&P Update DATE OF PROCEDURE: June 21, 2022 DATE H&P PERFORMED: 06/10/22 H&P UPDATE INFORMATION: I have reviewed H&P completed within last 30 days, I have examined patient prior to procedure and No changes to prior documentation PREOP DIAGNOSIS: DDD lumbosacral spine, lumbar stenosis, lumbar radiculopathy PLANNED PROCEDURE: Operation Date: 06/21/22 08:40 Proposed Procedures p Spinal Fusion L1-SACRUM [id number](Not Applicable) - Vasquez Sosa DO
[2022-06-21] MEDS: ceFAZolin 2,000 MG in sodium chloride 0.9% (plus) 50 ML 100 MG IV ×3 (08:49→20:52)
--- NOTE | 2022-06-21 09:20 | SUR.OPER ---
notified SO of surgical start.
[2022-06-21] MEDS: vancomycin 1,000 MG SDV 1000 MG XX (09:34)
[2022-06-21] MEDS: heparin, porcine 1,000 unit/mL INJ 10 mL 10000 UNIT IRRIGATION (09:35)
--- NOTE | 2022-06-21 11:01 | SUR.OPER ---
called SO and notified him of surgical progress.
--- NOTE | 2022-06-21 13:30 | P.OP_ITS ---
Operative Report Date of procedure: June 21, 2022 Pre-op diagnosis: Preop Diagnosis DDD lumbosacral spine, lumbar stenosis, lumbar radiculopathy Post-op diagnosis: same Procedure done: 1.? L1 - pelvis posterolateral fusion 2. L1 to S1 instrumentation 3. lumbo pelvic instrumentation 4. Open SI joint fusion (46072) Right 5. Open SI joint fusion (64646) Left 6. L4/5 laminectomy with partial facetectomies 7. L5/S1 laminectomy with partial facetectomies 8. computer navigation/ stereotactic for spine 9. Bone marrow aspirate from right iliac crest 10. use of autograft 11. use of allograft Surgeon: Vasquez Sosa Licensed Direct Entry Midwife: Sreedhar Fish Licensed Direct Entry Midwife: The surgical instrument technician, Sreedhar Fish, PAC was needed for his expertise under the microscope. He was important and necessary throughout the procedure to complete in a safe and timely manner. He assisted with patient positioning prepping and draping tissue retraction suctioning of the operative field protection of the dural sac and tissue closure Procedure: 1.? L1 - pelvis posterolateral fusion 2. L1 to S1 instrumentation 3. lumbo pelvic instrumentation 4. Open SI joint fusion (59140) Right 5. Open SI joint fusion (16643) Left 6. L4/5 laminectomy with partial facetectomies 7. L5/S1 laminectomy with partial facetectomies 8. computer navigation/ stereotactic for spine 9. Bone marrow aspirate from right iliac crest 10. use of autograft 11. use of allograft Patient is brought to the operative suite.? After undergoing anesthesia, the patient had neuro monitoring attached.? Patient was then placed in the prone position on the Bry table.? All areas of impingement were well-padded.? Patient was then prepped and draped in the normal sterile fashion.? Skin incision was then made over the L1 to S1.? Subperiosteal dissection was made out to the transverse processes of L1 down to L5.? And also exposing the sacral ala over the S1/L5 facet.? The SI joints were also exposed.? Next attention was brought to obtaining the bone marrow aspirate.? The Medipacs bone marrow aspirate kit was used to aspirate bone marrow aspirate.? This was done by using the sharp probe to open up the bone.? Aspiration was performed and then the blunt probe was then used to dissect down to through the bone tunnel.? An aspirating well drawn back a millimeter approximately 20 cc of bone marrow aspirate was used.? Admixed with the allograft and autograft bone that will be used. Is brought to placing the fiducial for the computer navigation.? The computer navigation fiducial was hooked up to 2 pins were placed into the right iliac crest.? These 2 pins were later re moved at the end of the case.? The C-arm was brought in and spun around the patient and then the information was linked to the computer in order to facilitate placing the screws. Next attention was brought to placing the sacral ala iliac screws.? These were done bilaterally.? The right side was done first.? The gearshift was placed using computer navigation.? And then the pedicle feeler was inserted in order to facilitate that there were no breaches.? This was also placed in order to facilitate marking where the screw was going to go.? Because Next the attention was brought to placing the open sacral iliac joint fusion.? The exposure was done over the sacroiliac joint.? Using the gearshift probe the SI joint was identified and a K wire was placed into the sacroiliac joint.? Tissue protectors were passed around the sacroiliac joint pain and then a drill was placed into the sacroiliac joint going in the parallel fashion into the SI joint.? Next a allograft cage was placed into the SI joint.? This was done superior to the plan.? The same process was repeated inferior to the pin.? Next attention was placed to placing the right sacral ala iliac screw using computer navigation this is a 90 mm 9.5 mm Sofya screw. Next attention was brought to the left side.he gearshift was placed using computer navigation.? And then the pedicle feeler was inserted in order to facilitate that there were no breaches.? This was also placed in order to facilitate marking where the screw was going to go.? Because Next the attention was brought to placing the open sacral iliac joint fusion.? The exposure was done over the sacroiliac joint.? Using the gearshift probe the SI joint was identified and a K wire was placed into the sacroiliac joint.? Tissue protectors were passed around the sacroiliac joint pain and then a drill was placed into the sacroiliac joint going in the parallel fashion into the SI joint.? Next a allograft cage was placed into the SI joint.? This was done superior to the plan.? The same process was repeated inferior to the pin.? Next attention was placed to placing the right sacral ala iliac screw using computer navigation this is a 80 mm 9.5 mm Sofya screw. A total of 4 cages were placed into the bilateral sacral iliac joints. Next attention was brought to placing the pedicle screws.? The technique for placing the pedicle screws was to use a drill followed by the gearshift probe.? Followed by the ball probe to feel the superior inferior medial lateral burns of the pedicles.? Then placement of the screws.? Was done at each pedicle.? Screws were placed at S1 bilaterally, L5 bilaterally L4 bilaterally L3 bilaterally L2 and bilaterally at L1. Next attention was brought to performing the laminectomy ofL4.? This was done using the high-speed bur Kerrisons and curettes.? Once the lamina was removed and then attention was brought to performing a partial facetectomy on the contralateral side.? This was done again using the high-speed bur curettes and Kerrisons.? The ligamentum flavum was taken down bilaterally from L4 to L5.? Attention was then brought to the facet on the ipsilateral side.? The facet was taken down.? The L5 nerve was decompressed as it passed around the L5 pedicle bilateral.? The laminectomy was done for purposes of decompressing the nerve ? The L4 nerve was identified as it traversed through the L4/5 foramen bilateral. Next attention was brought to performing the laminectomy ofL5.? This was done using the high-speed bur Kerrisons and curettes.? Once the lamina was removed and then attention was brought to performing a partial facetectomy on the contralateral side.? This was done again using the high-speed bur curettes and Kerrisons.? The ligamentum flavum was taken down bilaterally from L5 to S1.? Attention was then brought to the facet on the ipsilateral side.? The facet was taken down.? The S1 nerve was decompressed as it passed around the S1 pedicle bilateral.? The laminectomy was done for purposes of decompressing the nerve ? The L5 nerve was identified as it traversed through the L5 foramen bilateral. Attention was then brought to attaching the rods to the screws placed in the L1 down to S1 bilaterally and attaching onto the sacral ala iliac screw bilaterally.? Caps were torqued into position. Locking the construct in place. Wound was copiously irrigated and then attention was brought to decorticating the facets and transverse processes laterally.? Bone that was taken down from the lamina was used along with osteoamp fibers and sponges were packed into the lateral gutters along the facet joints.? This was done bilaterally. Wound was then closed in a layered fashion starting with the thoracolumbar fascia.? 0-vicryl was used the sub cutaneous tissue was closed with 2-0 vicryl and skin with 4-0 monocryl.? Glue was then used to seal the skin and a steril dressing was applied.? Patient was then placed in the supine position. The endotracheal tube was removed and patient was transferred to the PACU in stable condition.
[2022-06-21 14:19] LABS: ABG PCO2 49.9 mmHg (35-45); ABG PH Result 7.33 (7.35-7.45); Alveolar-Arterial Oxygen Gradi 4.6 mmHg (5-10); Arterial Blood Gas Hematocrit 32.3 % (37-47); Base Excess ABG -0.4 mmol/L (-2.0-2.0); Blood Gas Allen Test Pos; Blood Gas Operator Identificat BROMA; Blood Gas Sample Site Radial, right; Blood Gas Sample Type Arterial; HGB O2 Sat 85.7 % (95-100); Ionized Calcium Level - ABG 1.1 mmol/L (1.1-1.4); Methemoglobin < 0.0 % (0.4-1.5); Oxygen Device ROOM AIR; PO2 ABG 54.3 mmHg (80.0-100.0); Potassium Level - ABG 3.7 mmol/L (3.5-5.0); Total Hemoglobin 10.5 g/dL (12-16)
--- NOTE | 2022-06-21 14:38 | SUR.PHASEI ---
PT AWAKES TO TOUCH, PT ORIENTED TO PERSON PLACE AND MONTH AND YEAR,PT MOVES BILAT FEET STRONGLY TO COMMAND, PT HAS FAIR DORSAL FLEXATION AND EXTENSION TO COMMAND, WITH LEFT FOOT SLIGHTLY WEAKER , PT VERBALIZED THIS IS NORMAL FOR HER, MONITOR AFIB, VSS
--- NOTE | 2022-06-21 14:40 | SUR.PHASEI ---
PT CARE ASSUMED BY Kaley CRUZ RN.
--- NOTE | 2022-06-21 14:56 | SUR.PHASEI ---
PT DOZING OFF AND ON, PT C/O OF LOWER BACK PAIN WHEN AWAKE, BUT THEN SLEEPS, HEMAVAC DRAIN EMPTIED OF 90ML RED DRAINAGE, BUTTERFIELD PATENT OF APPROX 100ML OF YELLOW URINE. NOT EMPTIED. FAMILY UPDATED AT 1430 THAT PT ISSTABLE AND SLEEPING, PT WILL BE IN PACU FOR APPROX ANOTHER 45 MINUTES.
--- NOTE | 2022-06-21 15:02 | SUR.PHASEI ---
DR CARCAMO AT BEDSIDE PT AWAKES TO VOICE, ORIENTED X 3 VSS PT STABLE AND OK TO GO TO FLOOR, PT TALKATIVE WITH , MOVES ALL EXTREMITY TO COMMAND.
[2022-06-21] MEDS: morphine 4 mg/mL SDV 1 mL 2 MG IVP ×2 (15:40→17:46)
[2022-06-21] MEDS: potassium chloride ER 20 mEq Tablet PO ×2 (15:41→17:48)
[2022-06-21] MEDS: lactated ringers 1,000 ML 90 ML IV (15:41)
[2022-06-21] MEDS: HYDROcodone-acetaminophen 5-325 mg Tablet PO ×2 (16:49→22:39)
[2022-06-21] MEDS: ketorolac 30 mg/mL INJ IVP ×2 (16:50→22:38)
--- NOTE | 2022-06-21 17:30 | ANE.PACU2 ---
Inpatient post-anesthesia follow up: Airway intact: Yes Vital signs: Temperature 98 F Pulse Rate 115 Respiratory Rate 16 Blood Pressure 80/53 Pulse Oximetry 96 Oxygen Delivery Me thod Nasal Cannula Oxygen Flow Rate 1 Fraction of Inspir ed Oxygen Hydration adequate: Yes Nausea and vomiting: No Pain level: 1 Mental status: Baseline
[2022-06-21] MEDS: docusate sodium 100 mg Capsule PO (17:48)
[2022-06-21] MEDS: atorvastatin 40 mg Tablet 20 MG PO (20:51)
[2022-06-21] MEDS: metoprolol tartrate 50 mg Tablet PO (20:52)
[2022-06-22] MEDS: lactated ringers 1,000 ML 90 ML IV ×2 (02:19→12:52)
[2022-06-22 04:00] VITALS: BP 80/53; PULSE 115; RESP 16; TEMP 36.6; O2SAT 96
[2022-06-22] MEDS: ceFAZolin 2,000 MG in sodium chloride 0.9% (plus) 50 ML 100 MG IV ×2 (04:17→12:52)
--- NOTE | 2022-06-22 07:08 | PM.PN ---
Subjective Subjective: POD 1 Patient resting comfortably. Reports mild back pain. States that her legs feel much better. Denies any chest pain, shortness of breath, headaches. Vitals/I&O/Wt Last Vital Signs Temp 98 F 06/22/22 04:00 Pulse 115 H 06/22/22 04:00 Resp 16 06/22/22 04:00 BP 80/53 06/22/22 04:00 Pulse Ox 96 06/22/22 04:00 O2 Del Method 06/21/22 22:50 O2 Flow Rate 1 06/21/22 22:50 06/21/22 06/22/22 06/22/22 22:59 06:59 14:59 Intake Total 170 / 2170 1007 / 3177 Output Total 395 / 1255 340 / 1595 Balance -225 / 915 667 / 1582 Weight last 48 hrs Weight 220 lb Physical Exam Narrative: Patient presents alert and oriented x3 with a good general appearance normal mood and affect. Normal coordination normal stability. Mild tenderness around the incisional site with the incision appear to be clean and dry with Hemovac drain intact. No signs of erythema or drainage. No signs of infection. Patient denies any fevers or chills. 5/5 motor strength both lower extremities with negative straight leg raise bilaterally. Calves are supple no medial thigh tenderness. Pulses are 2+ at the dorsalis pedis and posterior tibial region. Good capillary refill throughout normal sensation light touch both lower extremities. Urinary Catheter Management: Rao: Cath Placed During This Visit: yes Reason for Continuing Indwelling Catheter: Perioperative Use in Selected Surgeries Urinary Catheter Date of Insertion: 06/21/22 Urinary Catheter Time of Insertion: 09:00 Data 06/21/22 07:13 06/17/22 10:05 A&P Assessment and plan (1) Status post lumbar spinal fusion: Physical therapy to evaluate and treat with mobilization. We will discontinue Rao catheter after physical therapy consultation. We will leave the Hemovac drain until tomorrow as I took the drain to gravity. Continue incentive spirometry for pulmonary toilet. Work for discharge home tomorrow. Attestations Medical Necessity Statement*: Discharge home tomorrow Coding Level of Care Code Acute Special Education Teacher for Julian Fwmichael Diagnoses Status post lumbar spinal fusion Z98.1
--- NOTE | 2022-06-22 07:51 | PC.NURSE ---
Dr. Sosa in with patient at 0645 with myself at the bedside. Reported to Dr. Sosa that patient's urine output for the last 12 hours was 250 cc and output from hemovac was [address] Sosa took the decompressed the hemovac and said to wait to remove the jarrell catheter until after physical therapy worked with the patient.
[2022-06-22] MEDS: HYDROcodone-acetaminophen 5-325 mg Tablet PO ×3 (07:54→18:39)
[2022-06-22 07:56] VITALS: PULSE 127; RESP 18; O2SAT 96
[2022-06-22 08:00] VITALS: BP 92/64; PULSE 112; RESP 17; TEMP 36.6; O2SAT 96
[2022-06-22] MEDS: FUROsemide 20 mg Tablet PO (08:46)
[2022-06-22] MEDS: potassium chloride ER 20 mEq Tablet PO ×2 (08:46→18:39)
[2022-06-22] MEDS: metoprolol tartrate 50 mg Tablet PO ×2 (08:46→20:33)
[2022-06-22] MEDS: pantoprazole DR 40 mg Tablet PO (08:46)
[2022-06-22] MEDS: docusate sodium 100 mg Capsule PO ×2 (08:47→18:39)
--- NOTE | 2022-06-22 10:22 | PC.CHAP ---
Pastoral Care Encounter/Spiritual Assessment Type of Contact [] Declined visual merchandising assistant visit [] Patient/Family/Request visit [] Outpatient visit [] Follow-up visit [] Physician referral [] Code/Alert [x] Routine visit [] Staff referral [] Actively dying [] Patient sleeping [] Family support [] [] Out of room [] Palliative care [] [] Receiving care in room [] Pre-surgical visit [] Trauma [] Long length of stay [] ICU visit [] Other: Relational/Emotional Strength [x] Patient feels connected with others/family/visitors/staff [] Distress [] Loneliness/isolation [] Abandonment Spirituality of Patient [x] Person of [place] [] Attends Mandaen of their [place] [x] Believes in Prayer [] Reads Bible or Congregational materials [] There are Spiritual issues to be addressed Station Baggage Porter Interventions [x] Prayer []x Active listening [x] Non-anxious presence [x] Spiritual/emotional support [] Crisis/trauma care [] Spiritual counseling [] Bereavement support [] Provided bereavement packet [] Provided Bible/devotional materials [] Provided toy/stuffed animal, coloring book to patient or family member [] Provided Communion [] Anointing/[place] [] Salvation x[] Completed spiritual assessment [] Other: Impact on Illness or Injury [] Angry [] Fearful [] Anxious [] Often cries [] Exhaustion [] Unable to work [] Unable to attend religious [] Unable to walk/stand [] Unable to read [] Unable to drive [] Unable to eat/drink [] Unable to sleep [] Unable to be with family [] Patient intubated [] Other: Summary Time spent with patient 10 min
[2022-06-22 11:57] VITALS: BP 97/57; PULSE 118; RESP 17; TEMP 36.6; O2SAT 94
[2022-06-22] MEDS: ketorolac 30 mg/mL INJ IVP (12:42)
[2022-06-22 15:55] VITALS: BP 95/61; PULSE 112; RESP 18; TEMP 36.6; O2SAT 96
[2022-06-22] MEDS: rivaroxaban 10 mg Tablet 20 MG PO (18:39)
[2022-06-22 19:40] VITALS: BP 110/60; PULSE 96; RESP 18; TEMP 36.8; O2SAT 97
[2022-06-22] MEDS: TRAMadol 50 mg Tablet PO (20:32)
[2022-06-22] MEDS: atorvastatin 40 mg Tablet 20 MG PO (20:32)
[2022-06-23] VITALS (7 sets, daily range): BP systolic 94–104; BP diastolic 50–57; PULSE 110–125; RESP 17–20; TEMP 36.6–36.8; O2SAT 95–99
[2022-06-23] MEDS: HYDROcodone-acetaminophen 5-325 mg Tablet PO ×2 (00:10→05:25)
[2022-06-23] MEDS: lactated ringers 1,000 ML 90 ML IV (00:11)
[2022-06-23] MEDS: ketorolac 30 mg/mL INJ IVP (05:26)
--- NOTE | 2022-06-23 06:31 | PM.PN ---
Subjective Subjective: POD 2 Patient sitting at the bedside this morning no apparent distress no complaints denies any shortness of breath, chest pain, headaches. Denies any dizziness or lightheadedness. Vitals/I&O/Wt Last Vital Signs Temp 97.9 F 06/23/22 03:18 Pulse 110 H 06/23/22 03:18 Resp 18 06/23/22 03:18 BP 94/50 06/23/22 03:18 Pulse Ox 96 06/23/22 03:18 O2 Del Method 06/23/22 03:18 O2 Flow Rate 2 06/23/22 03:18 06/22/22 06/22/22 06/23/22 14:59 22:59 06:59 Intake Total 1479.5 / 1479.5 360 / 1839.5 1200 / 3039.5 Output Total 200 / 200 300 / 500 Balance 1479.5 / 1479.5 160 / 1639.5 900 / 2539.5 Weight last 48 hrs Weight 220 lb Physical Exam Narrative: Patient presents alert and oriented x3 with a good general appearance normal mood and affect. Normal coordination normal stability. Mild tenderness around the incisional site with the incision appear to have slight bloody discharge. No signs of erythema or drainage. No signs of infection. Patient denies any fevers or chills. 5/5 motor strength both lower extremities with negative straight leg raise bilaterally. Calves are supple no medial thigh tenderness. Pulses are 2+ at the dorsalis pedis and posterior tibial region. Good capillary refill throughout normal sensation light touch both lower extremities. Urinary Catheter Management: Rao: Cath Placed During This Visit: yes, but has since been removed by the nurse Reason for Continuing Indwelling Catheter: Decision to DC Catheter Urinary Catheter Date of Insertion: 06/21/22 Urinary Catheter Time of Insertion: 09:00 Date Urinary Catheter Removed: 06/22/22 Time Urinary Catheter Discontinued: 12:00 Data 06/21/22 07:13 06/17/22 10:05 A&P Assessment and plan (1) Status post lumbar spinal fusion: Obtain an H&H to check her blood counts. Please change the dressings and apply Silverlon. Physical therapy to continue to mobilize. If she remains stable with mobilization we will discharge home later this morning. We will see her back in 1 week's time for a wound check. Encourage incentive spirometry at home. No bending lifting or twisting. (2) DDD (degenerative disc disease), lumbosacral: Attestations Medical Necessity Statement*: Discharge home later today. Coding Level of Care Code Acute Tape Recording Machine Operator for Chg Fwd Diagnoses Status post lumbar spinal fusion Z98.1 DDD (degenerative disc disease), lumbosacral M51.37
[2022-06-23 06:33] LABS: Hematocrit 25.7 % (37.0-47.0); Hemoglobin 7.9 g/dL (11.5-15.3)
[2022-06-23] MEDS: FUROsemide 20 mg Tablet PO (08:21)
[2022-06-23] MEDS: potassium chloride ER 20 mEq Tablet PO (08:21)
[2022-06-23] MEDS: metoprolol tartrate 50 mg Tablet PO (08:21)
[2022-06-23] MEDS: docusate sodium 100 mg Capsule PO (08:21)
[2022-06-23] MEDS: pantoprazole DR 40 mg Tablet PO (08:21)
--- NOTE | 2022-06-23 09:15 | PM.PN ---
Vitals/I&O/Wt Last Vital Signs Temp 98 F 06/23/22 08:00 Pulse 125 H 06/23/22 08:00 Resp 20 H 06/23/22 08:00 BP 143/76 06/23/22 08:00 Pulse Ox 96 06/23/22 08:00 O2 Del Method 06/23/22 03:18 O2 Flow Rate 2 06/23/22 03:18 06/22/22 06/23/22 06/23/22 22:59 06:59 14:59 Intake Total 360 / 1839.5 1200 / 3039.5 60 / 60 Output Total 200 / 200 300 / 500 Balance 160 / 1639.5 900 / 2539.5 60 / 60 Weight last 48 hrs Weight 220 lb Physical Exam Urinary Catheter Management: Rao: Cath Placed During This Visit: yes, but has since been removed by the nurse Reason for Continuing Indwelling Catheter: Decision to DC Catheter Urinary Catheter Date of Insertion: 06/21/22 Urinary Catheter Time of Insertion: 09:00 Date Urinary Catheter Removed: 06/22/22 Time Urinary Catheter Discontinued: 12:00 Data 06/23/22 06:27 06/17/22 10:05 A&P Assessment and plan (1) Acute blood loss as cause of postoperative anemia: Plan H/H review and will place her on Niferex 150 BID for anemia Attestations Medical Necessity Statement*: home today Coding Level of Care Code Acute Medical Technologist Microbiology for Julian Hays Diagnoses Acute blood loss as cause of postoperative anemia D62
--- NOTE | 2022-06-25 06:38 | PM.DCS ---
Discharge Providers Date of Admission: 06/21/22 13:47 Date of Discharge: June 23, 2022 Attending Provider at Admission: Vasquez Sosa DO Attending Provider at Discharge: Vasquez Sosa DO Primary Care Provider: LYNETTE Robert Diagnoses at Discharge Discharge Diagnosis (1) Acute blood loss as cause of postoperative anemia: Status: Acute Reason for Visit Reason for Visit: PFS L1-[facility]CR[facility] Hospital Course Hospital Course stayed for pain control Physical Exam Urinary Catheter Management: Rao: Cath Placed During This Visit: yes, but has since been removed by the nurse Reason for Continuing Indwelling Catheter: Decision to DC Catheter Urinary Catheter Date of Insertion: 06/21/22 Urinary Catheter Time of Insertion: 09:00 Date Urinary Catheter Removed: 06/22/22 Time Urinary Catheter Discontinued: 12:00 Discharge Data Studies Completed and Pending Completed Studies During Hospitalization Category Date Time Status XR lumbar spine 2-3V* [id number] Routine Exams 06/21/22 Completed Pending at discharge Category Date Time Status C-arm Fluoroscopy [id number] Routine Exams 06/21/22 06:49 Taken Radiology Impressions Lumbar Spine X-Ray 06/21/22 00:00 Impression: Posterior lumbosacral fusion. Laboratory Results WBC 8.5 10^3/uL (4.0-10.0) 06/21/22 07:13 RBC 4.70 10^6/uL (4.1-5.3) 06/21/22 07:13 Hgb 7.9 g/dL (11.5-15.3) L 06/23/22 06:27 Hct 25.7 % (37.0-47.0) L 06/23/22 06:27 MCV 86.4 fl (81-99) 06/21/22 07:13 MCH 27.4 pg (28.0-34.0) L 06/21/22 07:13 MCHC 31.8 g/dL (30.0-36.0) 06/21/22 07:13 RDW 14.3 % (12.1-15.1) 06/21/22 07:13 Plt Count 484 10^3/cmm (130-400) H 06/21/22 07:13 MPV 9.4 fL (7.4-10.4) 06/21/22 07:13 Neut % (Auto) 74.3 % 06/21/22 07:13 Lymph % (Auto) 11.4 % 06/21/22 07:13 [place] % (Auto) 9.0 % 06/21/22 07:13 Eos % (Auto) 4.5 % 06/21/22 07:13 Baso % (Auto) 0.6 % 06/21/22 07:13 Neut # (Auto) 6.34 10^3/uL (1.8-7.7) 06/21/22 07:13 Lymph # (Auto) 1.0 10^3/uL (0.8-4.8) 06/21/22 07:13 [place] # (Auto) 0.8 10^3/uL (0.2-0.9) 06/21/22 07:13 Eos # (Auto) 0.4 10^3/uL (0.0-0.8) 06/21/22 07:13 Baso # (Auto) 0.1 10^3/uL (0.0-0.1) 06/21/22 07:13 Nucleated RBC % (auto) 0 % 06/21/22 07:13 Nucleated RBCs # 0.0 /100WBC 06/21/22 07:13 Specimen Type Arterial 06/21/22 14:08 Sample Site Radial, right 06/21/22 14:08 ABG pH 7.33 (7.35-7.45) L 06/21/22 14:08 ABG pCO2 49.9 mmHg (35-45) H 06/21/22 14:08 ABG pO2 54.3 mmHg (80.0-100.0) L 06/21/22 14:08 ABG HCO3 26.0 mmol/L (22-26) 06/21/22 14:08 ABG O2 Saturation 85.0 06/21/22 14:08 ABG Base Excess -0.4 mmol/L (-2.0-2.0) 06/21/22 14:08 Salvatore Test Pos 06/21/22 14:08 A-a O2 Gradient 4.6 mmHg (5-10) L 06/21/22 14:08 Hematocrit 32.3 % (37-47) L 06/21/22 14:08 Hgb O2 Saturation 85.7 % (95-100) L 06/21/22 14:08 Carboxyhemoglobin 1.0 %THgb (0.4-20.1) 06/21/22 14:08 Methemoglobin < 0.0 % (0.4-1.5) L 06/21/22 14:08 Total Hemoglobin 10.5 g/dL (12-16) L 06/21/22 14:08 Sodium 138.0 mmol/L (131-143) 06/21/22 14:08 Potassium 3.7 mmol/L (3.5-5.0) 06/21/22 14:08 Glucose 148.0 mg/dL (70-115) H 06/21/22 14:08 Ionized Calcium 1.1 mmol/L (1.1-1.4) 06/21/22 14:08 O2 Delivery Device Room air 06/21/22 14:08 Concrete Gun Operator ID Janene 06/21/22 14:08 Sodium 139 mmol/L (136-145) 06/17/22 10:05 Potassium 3.4 mmol/L (3.5-5.1) L 06/17/22 10:05 Chloride 97 mmol/L (98-107) L 06/17/22 10:05 Carbon Dioxide 28 mmol/L (22-29) 06/17/22 10:05 Anion Gap 17.4 (5-19) 06/17/22 10:05 BUN 15 mg/dL (8-23) 06/17/22 10:05 Creatinine 0.8 mg/dL (0.5-0.9) 06/17/22 10:05 GFR Calculation Not Reportable 06/17/22 10:05 Glucose 120 mg/dL (65-115) H 06/17/22 10:05 Calculated Osmolality 290 mOsm/kg (285-295) 06/17/22 10:05 Calcium 9.5 mg/dL (8.5-10.5) 06/17/22 10:05 Blood Type O Positive 06/21/22 07:13 Rho(D) Type Positive 06/21/22 07:13 Antibody Screen Negative 06/21/22 07:13 Vitals Last Vital Signs Temp 97.8 F 06/23/22 13:42 Pulse 122 H 06/23/22 13:42 Resp 17 06/23/22 13:42 BP 103/55 06/23/22 13:42 Pulse Ox 97 06/23/22 13:42 O2 Del Method 06/23/22 11:11 O2 Flow Rate 2 06/23/22 03:18 Discharge Plan Discharge Patient Disposition: Home Condition: Stable Prescriptions: New hydrocodone-acetaminophen 5-325 mg Tablet 1 - 2 tab PO Q4H PRN (Reason: Moderate To Severe Pain) Qty: 40 0RF Ferrex 150 150 mg iron Capsule 150 mg PO BIDWM Qty: 60 0RF Continued metoprolol tartrate 50 mg tablet 50 mg PO BID triamterene-hydrochlorothiazid 37.5-25 mg tablet See Rx Instructions .ROUTE .COMPLEX Qty: 90 3RF Dose Instruction: TAKE 1 TABLET BY MOUTH ONCE DAILY *NEED APPOINTMENT BEFORE NEXT REFILL* Rx Instructions: TAKE 1 TABLET BY MOUTH ONCE DAILY *NEED APPOINTMENT BEFORE NEXT REFILL* furosemide 20 mg tablet 10 - 20 mg PO DAILY Qty: 90 3RF Xarelto 20 mg tablet See Rx Instructions .ROUTE .COMPLEX Qty: 90 0RF Dose Instruction: TAKE 1 TABLET BY MOUTH EVERY DAY Rx Instructions: TAKE 1 TABLET BY MOUTH EVERY DAY pantoprazole 20 mg tablet,delayed release (DR/EC) 20 mg PO DAILY 30 Days Qty: 30 0RF Rx Instructions: take on empty stomach tramadol 50 mg tablet 50 mg PO BID PRN (Reason: pain) 30 Days Qty: 20 0RF potassium chloride 20 mEq tablet,ER particles/crystals See Rx Instructions .ROUTE .COMPLEX Qty: 180 0RF Dose Instruction: Take 1 tablet by mouth twice daily Rx Instructions: Take 1 tablet by mouth twice daily pravastatin 40 mg tablet See Rx Instructions .ROUTE .COMPLEX Qty: 90 0RF Dose Instruction: Take 1 tablet by mouth once daily Rx Instructions: Take 1 tablet by mouth once daily (DME) intraoperative neuromonitoring See Rx Instructions .Route .MEDSUPPLY Qty: 1 0RF Rx Instructions: As directed (DME) Bone Growth Stimulator E0748 See Rx Instructions .ROUTE .MEDSUPPLY Qty: 1 0RF Rx Instructions: As directed Stool Softener 50 mg Capsule 100 mg PO BID Discharge Orders: Discharge Order (Routine); Ordered 06/23/22 Ordered By: Sreedhar Fish Referrals: Vasquez Sosa DO [Physician] - 07/01/22 9:15 am Discharge Diet: Advance as tolerated Discharge Activity: Limit activity as instructed Patient Instructions: Iron Supplements (By mouth), Hydrocodone/Acetaminophen (By mouth), Lumbar Spinal Fusion (GEN), Opioid Safety Activity Restrictions/Additional Instructions: Thank you for choosing [facility] for your care! The following is a list of instructions, from your provider, to follow upon your discharge to ensure you have the optimal recovery from your recent injury or surgery. Follow-up care is a gao part of your treatment and safety. Be sure to make and go to all appointments and call your doctor if you are having problems. If you do not already have a follow-up appointment made, call Dr. Sosa's] office in the next 1-3 days to make follow up appointment for 1 weeks at [phone]. It is also a good idea to know your test results and keep a list of the medicines you take. Medications will be prescribed for you at your provider's discretion. These medications are to be used as instructed; if they are taken more often that prescribed they will not be refilled early and in most cases will not be refilled at all. > When a refill is needed, you should contact marilee tubbs 2-3 business days before your prescription runs out. Medications will NOT be refilled by sludge filtration operator providers after hours! > Many pain medications contain Tylenol (Acetaminophen). Do not consume more than 4,000 mg of Tylenol per day in total with any combination of medications. > Pain medications can cause constipation. Please use an over the counter stool softener as directed, while taking pain medications. Consult your local pharmacist with questions or recommendations on stool softeners. If constipation persists, contact our office or your primary care provider. > While under our care, you are not to receive pain medications or other controlled substances from any other provider unless our office is notified and approves. Any attempts to do so will result in refusal to prescribe any further pain medications and possible dismissal from our practice. ? Walking is essential for the healing process after surgery. We would like you to slowly advance your walking. This should be done on relatively flat clear ground (inside or out) or can be done on a treadmill. Remember this goal does not have to happen all at once, slowly increase your distance and duration. This can be broken into more more than one walk per day as tolerated. Patients who walk as directed after surgery rarely require Physical Therapy. In the unlikely event this issue arises your provider will direct hospital staff to make the appropriate arrangements. ? No lifting over 5 pounds {a gallon of milk) or bending/twisting until further notice. Each of these activities places an unnecessary amount of stress onto the body and can impede the delicate healing process. > Instead of bending at the waist, keep your back straight and bend at the knees. > Instead of twisting your torso, keep your back straight and turn your entire body with your feet. ? You may sleep in any position which makes you comfortable. Many patients find comfort sleeping in a reclining chair. It is not abnormal to have difficulty sleeping for the first several weeks following your surgery. We recommend trying Benadry! or Tylenol PM as directed to help with your sleeping difficulties. Both medications are over the counter and available without prescription. ? NO SMOKING!!! Smoking dramatically increases the probability of developing postoperative wound infections. ? Common complaints after lumbar and/or thoracic spine surgery include, but are not limited to: numbness and/or tingling in the legs, pain around the incision and surrounding tissues, muscle spasms, or stiffness of the middle to low back. Contact our office if these symptoms persist or if an acute change occurs. ? No driving for the first 3-5days, and not while taking narcotics until seen at your follow-up appointment and cleared. There are no restrictions for riding on short trips, however if you take a longer trip, arrangements should be made to make regular stops to get out of the vehicle and stretch . ? Swelling is an unfortunate event that will take place with any surgery and is the primary source of your postoperative discomfort. While walking and regular approved activities helps control inflammation, there are additional steps you can take to minimize swelling. > Place ice over the surgical site and surrounding tissue for twenty minutes, followed by applying a low/medium heat (heating pad) for an additional twenty minutes every 1-2 hours as needed for painrelief. > You may use of over the counter anti-inflammatory medications (Ibuprofen, Motrin, Aleve, Advil, etc) as directed on the package label. These types of medicines will significantly reduce the amount of discomfort you experience after surgery from swelling. It should be noted that if you have and allergy to any of these medications, or a history of ulcers or kidney disease you should consult you primary care provider prior to starting these medications. Discharge Attestations Time Spent in Discharge Care*: less than 30 min Quality Metrics Clinical Quality Measures [ No reported AMI, CVA or VTE this stay] Coding Level of Care Code Acute Chg FW DC note Diagnoses Acute blood loss as cause of postoperative anemia D62
== END 2022-06-23 13:05 | disposition home or self-care (01) | DRG 460 ==
LOC: MEDSURG 13:48
PROVIDERS: Anesthesiology; Physician Assistant; Admitting Provider Orthopaedic Surgery; PCP Registered Nurse; Visit Provider Orthopaedic Surgery
PROC: 0SG1071 Fusion of 2 or more Lumbar Vertebral Joints with Autologous Tissue Substitute, Posterior Approach, Posterior Column, Open Approach (ICD-10-PCS; principal; 2022-06-21 08:10)
DX: M54.16 Radiculopathy, lumbar region (principal); D62 Acute posthemorrhagic anemia; M48.061 Spinal stenosis, lumbar region without neurogenic claudication; M51.37 Other intervertebral disc degeneration, lumbosacral region; I48.91 Unspecified atrial fibrillation; Z79.891 Long term (current) use of opiate analgesic; K21.9 Gastro-esophageal reflux disease without esophagitis; M81.0 Age-related osteoporosis without current pathological fracture; M54.42 Lumbago with sciatica, left side; I83.93 Asymptomatic varicose veins of bilateral lower extremities; Z87.891 Personal history of nicotine dependence; Z79.01 Long term (current) use of anticoagulants; I10 Essential (primary) hypertension
CPT/HCPCS: 36415; 36600; 51702; 72100; 76000; 80048; 80051; 82330; 82805; 85014; 85018; 85025; 86850; 86900; 93005; 97116; 97161; 97530; C1713; C1762; C9359; J0690; J1100; J1170; J1644; J1885; J2250; J2270; J2405; J2704; J3010; J3370; J3490; J7030; J7120

== ENCOUNTER → 2022-07-01 09:05 | Outpatient (BNVA) | payer MEDICARE, OTHER, SELFPAY | PROVIDERS: PCP Registered Nurse; Visit Provider Orthopaedic Surgery | DX: Z47.89 Encounter for other orthopedic aftercare (principal); Z98.1 Arthrodesis status | CPT/HCPCS: 99024 ==

== ENCOUNTER 2022-07-13 08:47 | Emergency (ER) | payer MEDICARE, OTHER, SELFPAY ==
--- NOTE | 2022-07-13 08:54 | XR_ITS ---
WS: [id number] Portable AP upright chest, 07/13/2022 Clinical Data: dyspnea/cough Comparison: PA and lateral chest, 01/10/2009 Findings: No nodules, masses or effusions are seen. The heart is normal. The pulmonary vascularity is not increased. No pneumonia or pneumothorax is seen. The aortic arch shows mild tortuosity. XR/XR chest 1V portable [id number] Impression: Atherosclerosis.
[2022-07-13 09:13] VITALS: BP 123/74; PULSE 116; RESP 18; TEMP 36.8; O2SAT 98; BMI 37.4
--- NOTE | 2022-07-13 09:21 | W.ED.SOB ---
HPI - SOB/Dyspnea General: Chief Complaint: Shortness of Breath/Dyspnea Stated Complaint: SOB, post back surgery Time Seen by Provider: 07/13/22 08:54 Source: patient History of Present Illness: HPI Narrative: 71-year-old female presents emergency room complaining of difficulty breathing swelling in her legs and sudden weight gain. She has a history of atrial fibrillation and has been getting progressively worse. The initially the registration note has that she was having some back pain. She had back surgery on June 21 she was discharged home from then seem to been doing fairly well. She had some postoperative anemia postoperatively her hemoglobin got as low as 7.9 she was admitted and monitored for a couple of days after surgery because of postop pain. She is on Xarelto which was held prior to surgery and then restarted immediately after. MD elicited complaint: shortness of breath and cough Timing: constant Severity: mild Exacerbating factors: lying flat and exertion Associated symptoms: Reports chest congestion, cough, orthopnea and palpitations; Deny abdominal pain, chest pain, diaphoresis, dizziness, extremity pain, fever(s), hemoptysis, lightheadedness, myalgias, nausea, paresthesias, polydipsia, polyuria, rash, sense of impending doom, syncope or vomiting Review of Systems Const: Denies: fever(s) or diaphoresis Card: Reports: palpitations and orthopnea; Denies: chest pain, lightheadedness or syncope Resp: Reports: chest congestion; Denies: hemoptysis GI: Denies: abdominal pain, nausea or vomiting Musc: Denies: extremity pain Neuro: Denies: dizziness Endo: Denies: polyuria or polydipsia PFS ED PFSH: Medical History Atrial fibrillation Contact dermatitis due to plant Enrolled in chronic care management GERD (gastroesophageal reflux disease) History of fracture of left hip 1977 (no surgery) History of fractured pelvis 1977 Postmenopausal osteoporosis Right-sided low back pain with sciatica Screening mammogram, encounter for 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 complications Surgical History H/O tubal ligation History of cataract surgery 2009 History of tonsillectomy Family History Sister Cancer Mother Hypertension Heart failure CAD (coronary artery disease) Father Stroke Grandmother CAD (coronary artery disease) Family/Other CAD (coronary artery disease) Diabetes Suicide Denies family history of Clotting disorder Dementia Chronic kidney disease (CKD) Anesthesia complication Bleeding disorder Lung disease Social History Smoking and tobacco status: former smoker (stop in 1989) Alcohol intake: current Alcohol intake frequency: 0-2 Drinks per Day Lives independently: Yes Marital status: Current occupational status: retired Current gender identity: Female Course Vital Signs: Vital signs: Vital Signs Temperature 98.2 F 07/13/22 09:13 Pulse Rate 106 H 07/13/22 11:45 Respiratory Rate 15 07/13/22 11:45 Blood Pressure 118/84 07/13/22 11:45 Pulse Oximetry 98 07/13/22 11:45 Oxygen Delivery Me thod 07/13/22 11:45 MDM - SOB/Dyspnea Medical Decision Making Labs imaging and EKG reviewed. Think she is mildly fluid overloaded we did give her Lasix here her symptoms have improved some. Her rate on her A. fib is well controlled. There is no acute changes. Her hemoglobin is low but she is chronically been low and is the same and she was 2 to 3 weeks ago. She should increase her Lasix to 60 mg daily for 3 days increase potassium supplement to 1 tablet twice daily during that time follow-up with cardiology at the end of the week and have a repeat BMP and CBC. Lab Data 07/13/22 09:30 07/13/22 09:30 Labs/Radiology: Radiology Impressions Chest X-Ray 07/13/22 08:54 Impression: Atherosclerosis. Chest CTA 07/13/22 11:17 IMPRESSION: 1. Negative CT angiogram of the chest. No evidence of acute pulmonary embolism. 2. Borderline cardiomegaly with small right pleural effusion, possibly cardiogenic in nature. 3. Minor bibasilar atelectatic lung changes. Laboratory Results WBC 7.7 10^3/uL (4.0-10.0) 07/13/22 09:30 RBC 3.06 10^6/uL (4.1-5.3) L 07/13/22 09:30 Hgb 7.8 g/dL (11.5-15.3) L 07/13/22 09:30 Hct 26.5 % (37.0-47.0) L 07/13/22 09:30 MCV 86.6 fl (81-99) 07/13/22 09:30 MCH 25.5 pg (28.0-34.0) L 07/13/22 09:30 MCHC 29.4 g/dL (30.0-36.0) L 07/13/22 09:30 RDW 15.7 % (12.1-15.1) H 07/13/22 09:30 Plt Count 493 10^3/cmm (130-400) H 07/13/22 09:30 MPV 9.0 fL (7.4-10.4) 07/13/22 09:30 Neut % (Auto) 73.6 % 07/13/22 09:30 Lymph % (Auto) 12.5 % 07/13/22 09:30 Lipscomb % (Auto) 8.8 % 07/13/22 09:30 Eos % (Auto) 4.2 % 07/13/22 09:30 Baso % (Auto) 0.8 % 07/13/22 09:30 Neut # (Auto) 5.63 10^3/uL (1.8-7.7) 07/13/22 09:30 Lymph # (Auto) 1.0 10^3/uL (0.8-4.8) 07/13/22 09:30 Lipscomb # (Auto) 0.7 10^3/uL (0.2-0.9) 07/13/22 09:30 Eos # (Auto) 0.3 10^3/uL (0.0-0.8) 07/13/22 09:30 Baso # (Auto) 0.1 10^3/uL (0.0-0.1) 07/13/22 09:30 Nucleated RBC % (auto) 0 % 07/13/22: Nucleated RBCs # 0.0 /100WBC 07/13/22 09:30 Sodium 136 mmol/L (136-145) 07/13/22 09:30 Potassium 3.8 mmol/L (3.5-5.1) 07/13/22 09: Chloride 99 mmol/L (98-107) 07/13/22 09:30 Carbon Dioxide 23 mmol/L (22-29) 07/13/22 09:30 Anion Gap 17.8 (5-19) 07/13/22 09:30 BUN 12 mg/dL (8-23) 07/13/22 09:30 Creatinine 0.7 mg/dL (0.5-0.9) 07/13/22 09:30 GFR Calculation Not Reportable 07/13/22 09:30 Glucose 109 mg/dL (65-115) 07/13/22 09:30 Calculated Osmolality 282 mOsm/kg (285-295) L 07/13/22 09:30 Calcium 8.8 mg/dL (8.5-10.5) 07/13/22 09:30 Total Bilirubin 0.5 mg/dL (0.15-1.2) 07/13/22 09:30 AST 22 U/L (0-32) 07/13/22 09:30 ALT 21 U/L (0-33) 07/13/22 09:30 Alkaline Phosphatase 232 U/L (35-105) H 07/13/22 09:30 C-Reactive Protein 23.7 mg/L (0.0-4.9) H 07/13/22 09:30 NT-Pro-B Natriuret Pep 4068 pg/mL (0-125) H 07/13/22 09:30 Total Protein 7.0 g/dL (6.6-8.7) 07/13/22 09:30 Albumin 4.0 g/dL (3.5-5.2) 07/13/22 09:30 Globulin 3.0 g/dL (1.3-4.6) 07/13/22 09:30 Discharge Plan Discharge Patient Disposition: Home Clinical Impression: Congestive heart failure, Atrial fibrillation Condition: Stable Prescriptions: No Action metoprolol tartrate 50 mg tablet 50 mg PO BID hydrocodone-acetaminophen 5-325 mg tablet 1 - 2 tab PO Q4H PRN (Reason: Moderate To Severe Pain) 7 Days Qty: 40 0RF furosemide 20 mg tablet 60 mg PO DIRECTED Rx Instructions: 07/14/22 60mg x 3 days then back to 20mg daily (DME) Bone Growth Stimulator E0748 See Rx Instructions .Route .MEDSUPPLY Qty: 1 0RF Rx Instructions: As directed Tylenol Ex Str Rapid Release 500 mg Tablet 1,000 mg PO Q6H PRN (Reason: Pain) Stool Softener 100 mg Capsule 100 mg PO BID pravastatin 40 mg tablet 40 mg PO QPM pantoprazole 20 mg tablet,delayed release (DR/EC) 20 mg PO QAM Rx Instructions: take on empty stomach triamterene-hydrochlorothiazid 37.5-25 mg tablet 1 tab PO QAM Xarelto 20 mg tablet 20 mg PO QAM potassium chloride 20 mEq tablet,ER particles/crystals 20 meq PO DIRECTED Rx Instructions: 07/14/22 Take 2 tabs x 3 days then return to QD Discharge Orders: Discharge ED (Routine); Ordered 07/13/22 Ordered By: Rj Lozano Referrals: Remberto Roberson FNP [Primary Care Provider] - Discharge Diet: Low Salt Discharge Activity: Limit activity as instructed Patient Instructions: Opioid Safety, Pain Management Activity Restrictions/Additional Instructions: Lasix 60 mg orally daily for the next 3 days. Increase your potassium supplement to 1 tablet twice a day while taking the Lasix at higher dose Follow-up with cardiology at the end of this week. Case management will help make arrangements for the follow-up. If you have any worsening symptoms return to the emergency room. Coding Level of Care Code ED Social And Political Studies Professor for Julian Hays
--- NOTE | 2022-07-13 09:40 | ECG_ITS ---
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 Measurements Intervals [place] Rate: 86 P: 0 VA: 0 QRS: 26 QRSD: 77 T: 28 QT: 364 QTc: 436 Interpretive Statements ATRIAL FIBRILLATION MINIMAL ST DEPRESSION [0.025+ mV ST DEPRESSION] ABNORMAL RHYTHM ECG Compared to ECG 06/17/2022 10:31:00 No significant changes Electronically Signed On 07-13-2022 20:26:50 LAP MAKER by Corine Vargas M.D. [id number]
[2022-07-13 09:42] LABS: Basophils # 0.1 10^3/uL (0.0-0.1); Basophils % 0.8 %; Eosinophils # 0.3 10^3/uL (0.0-0.8); Eosinophils % 4.2 %; Hematocrit 26.5 % (37.0-47.0); Hemoglobin 7.8 g/dL (11.5-15.3); Lymphocytes % 12.5 %; Mean Corpuscular HGB Conc 29.4 g/dL (30.0-36.0); Mean Corpuscular Hemoglobin 25.5 pg (28.0-34.0); Mean Corpuscular Volume 86.6 fl (81-99); Monocytes # 0.7 10^3/uL (0.2-0.9); Monocytes % 8.8 %; Neutrophils # 5.63 10^3/uL (1.8-7.7); Neutrophils % 73.6 %; Nucleated Red Blood Cells % 0 %; Platelet Count 493 10^3/cmm (130-400); Red Blood Count 3.06 10^6/uL (4.1-5.3); Red Cell Distribution Width 15.7 % (12.1-15.1); White Blood Count 7.7 10^3/uL (4.0-10.0)
[2022-07-13 10:00] VITALS: BP 119/87; PULSE 103; RESP 15; O2SAT 99
[2022-07-13 10:18] LABS: Alanine Aminotransferase 21 U/L (0-33); Alkaline Phosphatase 232 U/L (35-105); Anion Gap 17.8 (5-19); Aspartate Amino Transferase 22 U/L (0-32); Blood Urea Nitrogen 12 mg/dL (8-23); C Reactive Protein 23.7 mg/L (0.0-4.9); Calcium 8.8 mg/dL (8.5-10.5); Carbon Dioxide 23 mmol/L (22-29); Chloride 99 mmol/L (98-107); Creatinine Clr Calc Pharmacy 76.7967; Glucose 109 mg/dL (65-115); NT Pro B Type Natriuretic Pept 4068 pg/mL (0-125); Osmolality Calculated 282 mOsm/kg (285-295); Potassium 3.8 mmol/L (3.5-5.1); Sodium 136 mmol/L (136-145); Total Bilirubin 0.5 mg/dL (0.15-1.2)
--- NOTE | 2022-07-13 10:54 | PC.PHAR ---
pt states she takes care of her own medication-pt states she only takes kcl 20meq qam rx filled 06/15/22 90d/s for 20meq bid-pt states she stop taking ferrex 150mg bid on 06/30/22 rx filled 06/23/22 30d/s-notes are made in the pharmacy comments
[2022-07-13] MEDS: FUROsemide 10 mg/mL SDV 4mL 40 MG IVP (10:59)
[2022-07-13 11:00] VITALS: BP 108/81; PULSE 99; RESP 16; O2SAT 100
--- NOTE | 2022-07-13 11:17 | CTR_ITS ---
PROCEDURE INFORMATION: Exam: CTA Chest With Contrast Exam date and time: 07/13/2022 11:25 AM Age: 71 years old Clinical indication: Cough and shortness of breath; Patient HX: SOB, bilateral leg swelling. PT had lumbar surg on 06/21/22; Additional info: Dypsnea/tachycardia TECHNIQUE: Imaging protocol: Computed tomographic angiography of the chest with contrast. 3D rendering (Not supervised by radiologist): MIP and/or 3D reconstructed images were created by the technologist. Radiation optimization: All CT scans at this facility use at least one of these dose optimization techniques: automated exposure control; mA and/or kV adjustment per patient size (includes targeted exams where dose is matched to clinical indication); or iterative reconstruction. Contrast material: OMNI 350; Contrast volume: 87 ml; Contrast route: INTRAVENOUS (IV); COMPARISON: CR XR chest 1V portable [id number] 07/13/2022 9:06 AM RADIATION DOSE METRICS: Total DLP (mGy-cm): 473.63 FINDINGS: Pulmonary arteries: Pulmonary vasculature is adequately opacified without filling defects or other evidence of acute pulmonary embolism. Aorta: Unremarkable. No aortic aneurysm. No aortic dissection. Lungs: Small right basilar pleural effusion. Left pleural surface is unremarkable. Scattered minor atelectatic changes at the lung bases otherwise lung kim are aerated and clear. Pleural spaces: See Lungs finding. Heart: Cardiac silhouette is borderline enlarged. No significant coronary artery calcifications or pericardial effusion. Lymph nodes: Unremarkable. No enlarged lymph nodes. Diaphragm: There is a small hiatal hernia. Bones/joints: There are degenerative changes mid and lower thoracic spine. No acute bony abnormalities detected. Soft tissues: Unremarkable. CT/CT angio chest PE protcl [id number] IMPRESSION: 1. Negative CT angiogram of the chest. No evidence of acute pulmonary embolism. 2. Borderline cardiomegaly with small right pleural effusion, possibly cardiogenic in nature. 3. Minor bibasilar atelectatic lung changes.
[2022-07-13] MEDS: iohexol 350 mg/mL 500 mL Btl (per mL) IV (11:39)
[2022-07-13 11:45] VITALS: BP 118/84; PULSE 106; RESP 15; O2SAT 98
--- NOTE | 2022-07-13 14:47 | DCPLANNER ---
Addendum entered by Alyssa Grye 07/14/22 14:10: Patient had a follow up appointment scheduled with heart care - patient did attend appointment. Original Note: manager real estate had message to schedule a follow up appointment for patient with cardiology. manager real estate sent patients information to the front office staff at heart care. Patients information will be printed and reviewed. Clinic will call patient with appointment information.
== END 2022-07-13 13:40 | disposition home or self-care (01) ==
PROVIDERS: Emergency Provider Family Medicine; PCP Registered Nurse
DX: I11.0 Hypertensive heart disease with heart failure (principal); I50.9 Heart failure, unspecified; I48.91 Unspecified atrial fibrillation; Z87.891 Personal history of nicotine dependence
CPT/HCPCS: 71045; 71275; 80053; 83880; 85025; 86140; 93005; 96374; 99285; J1940; Q9967

== ENCOUNTER → 2022-07-14 12:14 | Outpatient (BNVA) | payer MEDICARE, OTHER, SELFPAY | PROVIDERS: PCP Registered Nurse; Visit Provider Internal Medicine Cardiovascular Disease | DX: I11.0 Hypertensive heart disease with heart failure (principal); I50.9 Heart failure, unspecified; I48.91 Unspecified atrial fibrillation; E78.5 Hyperlipidemia, unspecified; Z87.891 Personal history of nicotine dependence | CPT/HCPCS: 99213 ==

== ENCOUNTER → 2022-07-29 10:57 | Outpatient (BNVA) | payer MEDICARE, OTHER, SELFPAY | PROVIDERS: PCP Registered Nurse; Visit Provider Orthopaedic Surgery | DX: Z47.89 Encounter for other orthopedic aftercare (principal); Z98.1 Arthrodesis status | CPT/HCPCS: 72100; 99024 ==

== ENCOUNTER → 2022-08-11 09:16 | Outpatient (BNVA) | payer MEDICARE, OTHER, SELFPAY | PROVIDERS: PCP Registered Nurse; Visit Provider Nurse Practitioner Family | DX: I48.91 Unspecified atrial fibrillation (principal); I10 Essential (primary) hypertension; Z87.891 Personal history of nicotine dependence | CPT/HCPCS: 93005; 99214 ==

== ENCOUNTER → 2022-08-12 09:43 | Outpatient (BNVA) | payer MEDICARE, OTHER, SELFPAY | PROVIDERS: PCP Registered Nurse; Visit Provider Registered Nurse | DX: Z00.00 Encounter for general adult medical examination without abnormal findings (principal); E78.5 Hyperlipidemia, unspecified | CPT/HCPCS: 80053; 80061 ==

== ENCOUNTER → 2022-08-16 09:47 | Outpatient (BNVA) | payer MEDICARE, OTHER, SELFPAY | PROVIDERS: PCP Registered Nurse; Visit Provider Registered Nurse | DX: E78.5 Hyperlipidemia, unspecified (principal); I48.91 Unspecified atrial fibrillation; Z79.899 Other long term (current) drug therapy | CPT/HCPCS: 80053; 83036 ==

== ENCOUNTER → 2022-08-19 09:29 | Outpatient (BNVA) | payer MEDICARE, OTHER, SELFPAY | PROVIDERS: PCP Registered Nurse; Visit Provider Registered Nurse | DX: E11.9 Type 2 diabetes mellitus without complications (principal); Z71.3 Dietary counseling and surveillance | CPT/HCPCS: 81000 ==

== ENCOUNTER → 2022-08-25 09:34 | Outpatient (BNVA) | payer MEDICARE, OTHER, SELFPAY | PROVIDERS: PCP Registered Nurse; Visit Provider Nurse Practitioner Family | DX: I48.91 Unspecified atrial fibrillation (principal); Z79.01 Long term (current) use of anticoagulants; I10 Essential (primary) hypertension; Z87.891 Personal history of nicotine dependence | CPT/HCPCS: 93005; 99214 ==

== ENCOUNTER 2022-08-26 14:15 | Outpatient (CLI) | payer MEDICARE, OTHER, SELFPAY ==
--- NOTE | 2022-08-26 14:45 | MM_ITS ---
WS: [id number] Bilateral screening 3D tomosynthesis digital mammogram, 08/26/2022 Clinical Data: Z12.31 - Encounter for screening mammogram for malignant ... Comparison: 08/06/2021, 07/08/2020, 05/22/2019, 05/16/2018, 05/05/2017, 05/03/2016, 04/30/2015 4, 03/27/2013, 02/04/2012, 09/27/2006. Findings: The breast parenchymal pattern shows heterogeneous density. No spiculated masses or clustered calcifi cations are seen. There are no secondary signs of carcinoma. There are scattered benign calcification s in the left breast. There is a mole marker on the right breast. MM/[place] [id number] Impression: 1. Negative bilateral mammogram unchanged. 2. Recommend annual screening mammograms. BIRADS: 1-Negative FOLLOW UP: 1 Year Follow-up The CAD cylinder checker was used.
== END 2022-08-26 14:16 | disposition home or self-care (01) ==
PROVIDERS: PCP Registered Nurse; Visit Provider Registered Nurse
DX: Z12.31 Encounter for screening mammogram for malignant neoplasm of breast (principal)
CPT/HCPCS: 77063; 77067

== ENCOUNTER → 2022-09-08 10:26 | Outpatient (BNVA) | payer MEDICARE, OTHER, SELFPAY | PROVIDERS: PCP Registered Nurse; Visit Provider Registered Nurse | DX: E11.9 Type 2 diabetes mellitus without complications (principal) | CPT/HCPCS: 81000 ==

== ENCOUNTER → 2022-09-09 08:57 | Outpatient (BNVA) | payer MEDICARE, OTHER, SELFPAY | PROVIDERS: PCP Registered Nurse; Visit Provider Orthopaedic Surgery | DX: Z47.89 Encounter for other orthopedic aftercare (principal); Z98.1 Arthrodesis status | CPT/HCPCS: 72100; 99024 ==

== ENCOUNTER → 2022-10-18 11:38 | Outpatient (BNVA) | payer MEDICARE, OTHER, SELFPAY | PROVIDERS: PCP Registered Nurse; Visit Provider Registered Nurse | DX: E11.9 Type 2 diabetes mellitus without complications (principal); I48.91 Unspecified atrial fibrillation; I95.9 Hypotension, unspecified | CPT/HCPCS: 80053; 83880; 85025 ==

== ENCOUNTER → 2022-10-19 08:50 | Day surgery (SDC) | payer MEDICARE, OTHER, SELFPAY ==
[2022-10-19] VITALS (11 sets, daily range): BP systolic 106–132; BP diastolic 37–74; PULSE 83–100; RESP 18; TEMP 36.1–36.4; O2SAT 92–99
--- NOTE | 2022-10-19 09:15 | PC.NURSE ---
Pt to GI infusions for blood transfusion due to Hg of 7.1. Informed consent obtained prior to transfusion. Pt educated on signs and symptoms of possible transfusion reaction. No questions at this time. First unit transfusing without difficulty. No reaction noted.
[2022-10-19] MEDS: sodium chloride 0.9% 100 mL Bag 50 ML IV ×2 (11:43→13:25)
[2022-10-19] MEDS: acetaminophen 325 mg Tablet 650 MG PO (13:24)
--- NOTE | 2022-10-19 15:29 | PC.NURSE ---
Second unit PRBC's infused without difficulty. No reaction noted. Pt off floor via wheelchair to be taken home by friend via personal vehicle.
== END ==
PROVIDERS: PCP Registered Nurse; Visit Provider Registered Nurse
DX: D64.9 Anemia, unspecified (principal)
CPT/HCPCS: 36415; 36430; 86850; 86900; 86920; P9016

== ENCOUNTER → 2022-10-21 08:39 | Outpatient (BNVA) | payer MEDICARE, OTHER, SELFPAY | PROVIDERS: PCP Registered Nurse; Visit Provider Orthopaedic Surgery | DX: Z47.89 Encounter for other orthopedic aftercare; Z98.1 Arthrodesis status | CPT/HCPCS: 72100; 99213 ==

== ENCOUNTER → 2022-10-27 11:17 | Outpatient (BNVA) | payer MEDICARE, OTHER, SELFPAY | PROVIDERS: PCP Registered Nurse; Visit Provider Internal Medicine Cardiovascular Disease | DX: Z79.01 Long term (current) use of anticoagulants (principal); R06.02 Shortness of breath | CPT/HCPCS: 36415; 80048; 83880; 85025; 99215 ==

== ENCOUNTER → 2022-11-10 09:47 | Outpatient (BNVA) | payer MEDICARE, OTHER, SELFPAY | PROVIDERS: PCP Registered Nurse; Visit Provider Internal Medicine Cardiovascular Disease | DX: I48.91 Unspecified atrial fibrillation (principal); I50.31 Acute diastolic (congestive) heart failure | CPT/HCPCS: 80053; 83880; 85025 ==

== ENCOUNTER 2022-11-17 14:39 | Outpatient (CLI) | payer MEDICARE, OTHER, SELFPAY ==
--- NOTE | 2022-11-17 15:00 | USCV_ITS ---
Angela Lawler Age: 71 Gender: F : 1950 Exam Date: 11/17/2022 15:12 Ordering Phys: Corine Vargas MD ([email or web address]) Technologist: Rashawn Nielsen [place] [facility] [place] Indication: CHF BP: 105 / 58 HR: 81 Rhythm: Sinus Technical Quality: Adequate MEASUREMENTS (Male / Female) Normal Values 2D ECHO LV Ejection Fraction MOD 2C 62.3 % LV Ejection Fraction 2C AL 61.9 % LA Diameter 4.3 cm LA Width 3.7 cm LA Height 6.6 cm RA Width 5.0 cm RA Height 5.8 cm Aorta at Sinotubular Diameter 2.4 cm IVC Diameter 1.9 cm M-MODE Aortic Annulus Diameter 3.1 cm LA Ao Ratio MM 1.4 MV E Point Septal Separation 0.7 cm DOPPLER AV Peak Velocity 113.0 cm/s LVOT Peak Velocity 94.0 cm/s MV Peak Velocity 120.0 cm/s MV Area PHT 6.3 cm squared Mitral E to A Ratio 3.4 MV E' Velocity 59.5 cm/s Mitral E to MV E' Ratio 10.5 Mitral E to LV E' Lateral Ratio 8.3 Mitral E to LV E' Septal Ratio 14.6 TR Peak Velocity 360.7 cm/s TR Peak Gradient 52.0 mmHg TR Mean Velocity 264.3 cm/s TR Mean Gradient 31.0 mmHg TR Velocity Time Integral 95.1 cm Right Atrial Pressure 3.0 mmHg Pulmonary Artery Systolic Pressu 55.0 mmHg PV Peak Velocity 80.0 cm/s RV Acceleration Time 0.1 s RV Ejection Time 0.3 s RV AcT/ET 0.3 FINDINGS Left Ventricle Normal left ventricular size and systolic function, EF 60 %. No regional wall motion abnormalities. Grade I/IV diastolic dysfunction (abnormal relaxation filling pattern), normal to mildly elevated filling pressures. Right Ventricle Normal right ventricular size and systolic function. Right Atrium Mildly increased right atrial size. Left Atrium Mildly increased left atrial size. Mitral Valve Thickened mitral valve. Mild mitral annular calcification. Trace to mild mitral valve regurgitation. Aortic Valve No gross abnormalities noted Tricuspid Valve Mild tricuspid valve regurgitation. Estimated pulmonary artery peak systolic pressure of 55 mmHg Pulmonic Valve Trace pulmonary valve regurgitation. Pericardium Normal pericardium without effusion. Aorta Normal ascending aorta dimension. IVC The inferior vena cava appears normal. CONCLUSIONS Normal left ventricular size and systolic function, EF 60 %. No regional wall motion abnormalities. Grade I/IV diastolic dysfunction (abnormal relaxation filling pattern), normal to mildly elevated filling pressures. Thickened mitral valve. Mild mitral annular calcification. Trace to mild mitral valve regurgitation. Mild biatrial enlargement. Mild tricuspid valve regurgitation. Moderate pulmonary hypertension, estimated pulmonary artery peak systolic pressure 55 mmHg Trace pulmonary valve regurgitation. There is no pericardial effusion. There are no intracardiac masses. No similar previous studies are available for comparison Dr Corine Vargas MD [facility] (Electronically Signed) Final Date: 18 Nov 2022 10:19 S
== END 2022-11-17 14:40 | disposition home or self-care (01) ==
LOC: RAD 14:43
PROVIDERS: PCP Registered Nurse; Visit Provider Internal Medicine Cardiovascular Disease
DX: I50.9 Heart failure, unspecified (principal); I07.1 Rheumatic tricuspid insufficiency; I27.20 Pulmonary hypertension, unspecified
CPT/HCPCS: 93306

== ENCOUNTER 2022-11-19 07:06 | Outpatient (CLI) | payer MEDICARE, OTHER, SELFPAY ==
--- NOTE | 2022-11-19 | ECG_ITS ---
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 Interpretive Statements NAME OF STUDY: LEXISCAN SESTAMIBI STRESS TEST INDICATION: CHF, PROCEDURE: At the baseline, the EKG revealed atrial fibrillation with a controlled ventricular response rate of 85 bpm. Some diffuse nonspecific ST-T changes. The baseline heart was 85 bpm with a blood pressue of 123/80 mm of Hg Lexiscan was infused over a period of 20 seconds. A total of 0.4 milligrams of Lexiscan was infused. The stress phase was continued for a total of 5 minutes. Heart rate at the end of the stress phase was 109 bpm with a blood pressure 121/53 mm of Hg. The EKG at the peak infusion revealed no significant changes. Sestamibi was injected 20 seconds after the Lexiscan infusion. Heart rate at the end of the recovery phase was 101 bpm with a blood pressure of 136/80 mm of Hg. CONCLUSION: 1. No significant EKG changes with the LexiScan infusion 2. No LexiScan induced chest pain or cardiac arrhythmia 3. Normal blood pressure and heart rate response 4. Sestamibi/sestamibi perfusion scan pending; see separate report. Electronically Signed On 11-26-2022 20:02:01 CDT by Corine Vargas M.D. [id number]
[2022-11-19 07:33] VITALS: BMI 32.5
--- NOTE | 2022-11-19 07:35 | NMCV_ITS ---
NM tisha perf SPECT r/s* [id number] Angela Lawler Age: 72 Gender: F : 1950 Exam Date: 11/19/2022 08:46 Ordering Phys: Corine Vargas MD ([email or web address]) Technologist: CRISTY Siddiqui Exam Location: [facility] Indications: CORONARY ANGIOPLASTY STATUS STRESS TEST Please see separate stress test report in [facility] for full findings IMAGE PROTOCOL Rest/Stress 1 Lexiscan Day Radiopharmaceutical Dose (mCi) Administration Site Administered by Rest: Tc-99m 10.7 IV CRISTY Carter Sestamibi Stress:Tc-99m 32.7 IV CRISTY Siddiqui Sestamibi Rest: 19-Nov-2022 60 Discovery 630 Stress: 19-Nov-2022 30 Discovery 630 0.4mg Lexiscan. Images obtained in supine and prone position. SPECT RESULTS Technical Quality: Excellent Raw Data Analysis: Normal Image Corrections: No attenuation or motion correction applied Summed Stress Score: 1 Summed Rest Score: 3 Summed Difference Score: 0 PERFUSION FINDINGS Patchy areas of slightly decreased tracer uptake were noted in the apical lateral, and LV apex. No significant reversibility was noted in this regions FUNCTIONAL RESULTS (calculated via Gated SPECT) Stress Image LV EF (%): 79 Stress EDV (mL):62 TID: 0.92 Stress ESV (mL):13 FUNCTIONAL FINDINGS: Segmental wall motion analysis revealing no gross wall motion abnormalities IMPRESSIONS 1. Myocardial perfusion imaging revealing a small area of persistent decreased tracer uptake in the AP lateral region suggestive of myocardial scarring versus attenuation artifact 2. Normal LV ejection fraction of 79%. 3. LV wall motion analysis revealing no gross wall motion abnormalities. 4. Normal LV volume Low probability for coronary ischemia, based on the above findings Dr Corine Vargas MD [facility] (Electronically Signed) Final Date: 19 Nov 2022 13:22 S
[2022-11-19 09:47] VITALS: BP 136/80; PULSE 101
[2022-11-19] MEDS: regadenoson 0.4 Mg/5 ml Syringe IVP (09:47)
[2022-11-19] MEDS: ondansetron 2 mg/ML SDV 2 mL 4 MG IVP (09:48)
== END 2022-11-19 07:07 | disposition home or self-care (01) ==
LOC: CDL 07:08
PROVIDERS: PCP Registered Nurse; Visit Provider Internal Medicine Cardiovascular Disease
DX: I50.9 Heart failure, unspecified (principal)
CPT/HCPCS: 36415; 78452; 93017; 96374; 96375; A9500; J2405; J2785

== ENCOUNTER → 2022-12-01 09:32 | Outpatient (BNVA) | payer MEDICARE, OTHER, SELFPAY | PROVIDERS: PCP Registered Nurse; Visit Provider Internal Medicine Cardiovascular Disease | DX: I11.0 Hypertensive heart disease with heart failure (principal); E78.5 Hyperlipidemia, unspecified; I83.893 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 complications; R53.83 Other fatigue; I50.31 Acute diastolic (congestive) heart failure | CPT/HCPCS: 80053; 83880; 85025 ==

== ENCOUNTER → 2022-12-02 08:32 | Outpatient (BNVA) | payer MEDICARE, OTHER, SELFPAY | PROVIDERS: PCP Registered Nurse; Visit Provider Orthopaedic Surgery | DX: Z98.890 Other specified postprocedural states (principal); Z98.1 Arthrodesis status | CPT/HCPCS: 72100; 99213 ==

== ENCOUNTER → 2023-02-22 14:20 | Outpatient (BNVA) | payer MEDICARE, OTHER, SELFPAY | PROVIDERS: PCP Registered Nurse; Visit Provider Registered Nurse | DX: E53.8 Deficiency of other specified B group vitamins (principal); D50.9 Iron deficiency anemia, unspecified; E11.9 Type 2 diabetes mellitus without complications | CPT/HCPCS: 80053; 82607; 83036; 84443; 85025 ==

== ENCOUNTER → 2023-05-18 09:27 | Outpatient (BNVA) | payer MEDICARE, OTHER, SELFPAY | PROVIDERS: PCP Registered Nurse; Visit Provider Internal Medicine Cardiovascular Disease | DX: I48.91 Unspecified atrial fibrillation (principal); Z79.01 Long term (current) use of anticoagulants; I11.0 Hypertensive heart disease with heart failure; I50.9 Heart failure, unspecified; E11.9 Type 2 diabetes mellitus without complications; E78.5 Hyperlipidemia, unspecified; Z87.891 Personal history of nicotine dependence | CPT/HCPCS: 99214 ==

== ENCOUNTER → 2023-06-09 08:46 | Outpatient (BNVA) | payer MEDICARE, OTHER, SELFPAY | PROVIDERS: PCP Registered Nurse; Visit Provider Orthopaedic Surgery | DX: Z47.89 Encounter for other orthopedic aftercare (principal); Z98.1 Arthrodesis status | CPT/HCPCS: 72100; 99213 ==

== ENCOUNTER → 2023-06-29 09:17 | Outpatient (BNVA) | payer MEDICARE, OTHER, SELFPAY | PROVIDERS: PCP Registered Nurse; Visit Provider Registered Nurse | DX: J06.9 Acute upper respiratory infection, unspecified (principal) | CPT/HCPCS: 87400; 87426 ==

== ENCOUNTER → 2023-08-30 10:45 | Outpatient (BNVA) | payer MEDICARE, OTHER, SELFPAY | PROVIDERS: PCP Registered Nurse; Visit Provider Registered Nurse | DX: M81.0 Age-related osteoporosis without current pathological fracture (principal); E11.9 Type 2 diabetes mellitus without complications; I10 Essential (primary) hypertension; J06.9 Acute upper respiratory infection, unspecified | CPT/HCPCS: 80053; 80061; 81000; 82607; 83036; 85025 ==

== ENCOUNTER → 2023-09-05 10:26 | Outpatient (BNVA) | payer MEDICARE, OTHER, SELFPAY | PROVIDERS: PCP Registered Nurse; Referring Provider Registered Nurse; Visit Provider Surgery | DX: D50.9 Iron deficiency anemia, unspecified (principal); K21.9 Gastro-esophageal reflux disease without esophagitis; R19.7 Diarrhea, unspecified; Z79.899 Other long term (current) drug therapy | CPT/HCPCS: 99204 ==

== ENCOUNTER 2023-09-08 12:25 | Outpatient (CLI) | payer MEDICARE, OTHER, SELFPAY ==
--- NOTE | 2023-09-08 13:00 | MM_ITS ---
WS: [id number] VIEWS: MLO and CC views both breasts. 3D digital tomosynthesis is also included in this exam. Comparison made with prior exam of 02/04/2012, 03/27/2013, 04/15/2014, 04/30/2015, 05/03/2016, 7, 05/16/2018, 05/22/2019, 07/08/2020, 08/06/2021, 08/26/2022.. Findings: There was no sign of mass, architectural distortion or suspicious calcification in either breast. Sta ble appearing nodular densities in both breasts. The breasts are heterogeneously dense which may obsc ure small masses Impression: MM/[place] [id number] BI-RADS: 2-Benign finding. FOLLOW-UP: 1 Year Follow-up This mammogram was also analyzed by the Computer Aided Detection System R2 Imag e Pharmacists.
--- NOTE | 2023-09-08 13:30 | XR_ITS ---
WS: [id number] SCREENING DEXA SCAN iNeed CLINICAL INFORMATION: M81.0 - Age-related osteoporosis without current patholog... COMPARISON: 2021 FINDINGS: The LEFT forearm bone mineral density measures 0.825. This corresponds to a T score score of -0.6 and Z score of 1.7. Left femoral neck bone mineral density measures 1.116 g/cm2. This corresponds to a T score of 0.9 and Z score of 1.8. Right femoral neck bone mineral density measures 1.054 g/cm2. This corresponds to a T score 0.4of and Z score of 1.3. Mean femoral neck bone mineral density measures 1.085 g/cm2. This corresponds to a T score of 0.6 and Z score of 1.5. IMPRESSION: Normal bone mineralization LEFT forearm and femoral necks. Patient's FRAX calculated 10 year probability for major osteoporotic fracture is 11.7% and osteoporot ic hip fracture is 1.1%. Bone mineral density in the femoral necks increased 1.3%
== END 2023-09-08 12:26 | disposition home or self-care (01) ==
LOC: RAD 12:25
PROVIDERS: PCP Registered Nurse; Visit Provider Registered Nurse
DX: Z12.31 Encounter for screening mammogram for malignant neoplasm of breast; R92.333 Mammographic heterogeneous density, bilateral breasts; M81.0 Age-related osteoporosis without current pathological fracture
CPT/HCPCS: 77063; 77067; 77080

== ENCOUNTER 2023-10-12 10:47 | Day surgery (SDC) | payer MEDICARE, OTHER, SELFPAY ==
[2023-10-12 11:09] VITALS: BP 116/56; PULSE 56; RESP 18; TEMP 36.2; O2SAT 98; BMI 37.4
[2023-10-12] MEDS: sodium chloride 0.9% 1,000 ML 30 ML IV (11:24)
--- NOTE | 2023-10-12 12:07 | ANES.PREANE2 ---
Pre-Anesthetic Assessment Height/Weight: Height 1.65 m Weight 102.058 kg Temp Pulse Resp BP Pulse Ox O2 Del Method 97.1 F L 56 L 18 116/56 98 Room Air 10/12/23 11:09 10/12/23 11:09 10/12/23 11:09 10/12/23 11:09 10/12/23 11:09 10/12/23 11:09 Preop Diagnosis: iron def. anemia, GERD Operation Date: 10/12/23 12:15 Proposed Procedures p 91629 EGD 66142 COLONOSCOPY d50.9,K21.9,R19.7(Not Applicable) - DO amanda Stafford Colonoscopy(Not Applicable) - Fritz Stephenson DO Familial anesthetic complications: none Was Clonidine taken within 24 hours: N/A Last intake: Intake Last Liquid Date 10/11/23 Last Liquid Time 20:00 Last Solid Date 10/10/23 Last Solid Time 17:00 Social No alcohol and No tobacco Exam alert and oriented x 3 Airway Submandibular: within normal limits Cervical ROM: within normal limits Mallampati: Class I Dentition: full Pulmonary None reported CV/HEM Anemia, Arrythmia (xarelto- last taken tuesday) and Hypertension None reported Hepatic None reported GI Gastroesophageal Reflux Disease Metabolic Diabetes Mellitus, Hyperlipidemia and Morbid Obesity Musc/skel None reported Neuropsych Transient Ischemic Attack (no residual) Anesthetic Plan ASA status: 3 Risk of > 500 ml blood loss (7ml/kg in children): No Medications/Allergies Home Medications Medication Instructions Recorded Confirmed Last Taken Type Bone Growth Stimulator E0748 #1 ea 06/16/22 10/10/23 10/10/23 Rx acetaminophen 500 mg tablet 1,000 mg PO Q6H PRN Pain 07/13/22 10/10/23 10/11/23 History docusate sodium 100 mg capsule 100 mg PO BID 07/13/22 10/10/23 10/11/23 History (Stool Softener) blood-glucose meter (Accu-Chek #1 ea 08/19/22 10/10/23 10/10/23 Rx Guide Glucose Meter) lancets (Accu-Chek Softclix #100 ea 08/19/22 10/10/23 10/10/23 Rx Lancets) amiodarone 200 mg tablet 200 mg PO DAILY 08/25/22 10/10/23 10/12/23 History metoprolol tartrate 50 mg tablet 25 mg PO BID 10/14/22 10/10/23 10/12/23 History blood sugar diagnostic (Accu-Chek #100 ea 11/15/22 10/10/23 10/10/23 Rx Guide test strips) cyanocobalamin (vitamin B-12) 1,000 mcg IM .monthly 30 days #1 mL 06/06/23 10/10/23 10/05/23 Rx 1,000 mcg/mL injection solution triamterene 37.5 See Rx Instructions .Route 07/28/23 10/10/23 10/11/23 Rx mg-hydrochlorothiazide 25 mg tablet .COMPLEX #90 tabs rivaroxaban 20 mg tablet (Xarelto) 20 mg PO QAM 90 days #90 tabs 08/16/23 10/10/23 10/09/23 Rx furosemide 20 mg tablet 20 mg PO DAILY 10/10/23 10/10/23 10/11/23 History pantoprazole 20 mg tablet,delayed 20 mg PO DAILY 10/10/23 10/10/23 10/11/23 History release potassium chloride 20 mEq 20 meq PO BID 10/10/23 10/10/23 10/11/23 History tablet,extended release(part/cryst) pravastatin 40 mg tablet 40 mg PO QPM 10/10/23 10/10/23 10/11/23 History Allergies Allergy/AdvReac Type Severity Reaction Status Date / Time verapamil AdvReac Intermediate Unknown Verified 10/10/23 12:00 meperidine [From Demerol] AdvReac Mild Nausea,vomi Verified 10/10/23 12:00 ting diltiazem [From Cardizem] AdvReac Unknown Verified 10/10/23 12:00 Current Medications Generic Name Dose Route Start Last Admin Trade Name Freq PRN Reason Stop Dose Admin Sodium Chloride 1,000 mls @ 30 mls/hr 10/12/23 11:00 10/12/23 11:24 Sodium Chloride 0.9% IV 10/13/23 10:59 30 mls/hr .Q24H TRUDY Administration PFSH Anesthesia Medical History History of fracture of left hip 1977 (no surgery) History of fractured pelvis 1977 Postmenopausal osteoporosis Screening mammogram, encounter for Contact dermatitis due to plant Right-sided low back pain with sciatica Enrolled in chronic care management GERD (gastroesophageal reflux disease) 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 complications Atrial fibrillation Surgical History History of tonsillectomy H/O tubal ligation History of cataract surgery 2009 Family History Sister Cancer Mother Hypertension Heart failure CAD (coronary artery disease) Father Stroke Grandmother CAD (coronary artery disease) Family/Other CAD (coronary artery disease) Diabetes Suicide Social History Smoking and tobacco/nicotine status: former use of tobacco/nicotine (stop in 1989) Alcohol intake: current Alcohol intake frequency: 0-2 Drinks per Day Substance/Drug Use: never Lives independently: Yes Marital status: Current occupational status: retired Do you think of yourself as: Straight/Heterosexual Current gender identity: Female Data Anesthesia Cardiac Studies: Echocardiogram 11/17/22 Sestamibi Stress Test (Cardiology) 11/19/22
[2023-10-12 12:47] VITALS: BP 133/55; PULSE 61; RESP 12; TEMP 36.2; O2SAT 93
[2023-10-12 12:50] VITALS: BP 143/47; PULSE 57; RESP 16; O2SAT 94
[2023-10-12 13:02] VITALS: BP 126/69; PULSE 53; RESP 18; O2SAT 95
--- NOTE | 2023-10-12 13:25 | ANE.PACU2 ---
Inpatient post-anesthesia follow up: Airway intact: Yes Vital signs: Temperature 97.2 F Pulse Rate 53 Respiratory Rate 18 Blood Pressure 126/69 Pulse Oximetry 95 Oxygen Delivery Me thod Room Air Oxygen Flow Rate 3 Fraction of Inspir ed Oxygen Hydration adequate: Yes Nausea and vomiting: No Pain level: 1 Mental status: Baseline
== END 2023-10-12 13:26 | disposition home or self-care (01) ==
PROVIDERS: PCP Registered Nurse; Visit Provider Surgery
PROC: 0DJ08ZZ Inspection of Upper Intestinal Tract, Via Natural or Artificial Opening Endoscopic (ICD-10-PCS; CPT 43235; principal; 2023-10-12 12:15)
PROC: 0DJD8ZZ Inspection of Lower Intestinal Tract, Via Natural or Artificial Opening Endoscopic (ICD-10-PCS; CPT 45378; 2023-10-12 12:15)
DX: R19.7 Diarrhea, unspecified (principal); D50.9 Iron deficiency anemia, unspecified; K21.9 Gastro-esophageal reflux disease without esophagitis; K29.50 Unspecified chronic gastritis without bleeding; D12.5 Benign neoplasm of sigmoid colon; K64.8 Other hemorrhoids; K22.2 Esophageal obstruction; Z79.01 Long term (current) use of anticoagulants; I10 Essential (primary) hypertension; E11.9 Type 2 diabetes mellitus without complications; E78.5 Hyperlipidemia, unspecified; E66.01 Morbid (severe) obesity due to excess calories; Z68.37 Body mass index [BMI] 37.0-37.9, adult; Z86.73 Personal history of transient ischemic attack (TIA), and cerebral infarction without residual deficits; Z87.891 Personal history of nicotine dependence
CPT/HCPCS: 43239; 43249; 45385; 88305; 88342; J2704; J7030

== ENCOUNTER → 2023-10-31 14:05 | Outpatient (BNVA) | payer MEDICARE, OTHER, SELFPAY | PROVIDERS: PCP Registered Nurse; Visit Provider Surgery | DX: Z09 Encounter for follow-up examination after completed treatment for conditions other than malignant neoplasm (principal); K21.9 Gastro-esophageal reflux disease without esophagitis; K22.2 Esophageal obstruction; D37.4 Neoplasm of uncertain behavior of colon | CPT/HCPCS: 99214 ==

== ENCOUNTER → 2023-11-15 14:36 | Outpatient (BNVA) | payer MEDICARE, OTHER, SELFPAY | PROVIDERS: PCP Registered Nurse; Visit Provider Internal Medicine Cardiovascular Disease | DX: I48.91 Unspecified atrial fibrillation (principal); I83.893 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 complications; E78.5 Hyperlipidemia, unspecified; I11.0 Hypertensive heart disease with heart failure; I50.31 Acute diastolic (congestive) heart failure; E11.9 Type 2 diabetes mellitus without complications; Z87.891 Personal history of nicotine dependence; Z79.01 Long term (current) use of anticoagulants | CPT/HCPCS: 99214 ==

== ENCOUNTER 2024-03-21 08:50 | Outpatient (CLI) | payer MEDICARE, OTHER, SELFPAY ==
--- NOTE | 2024-03-21 08:53 | XR_ITS ---
WS: [email or web address] XR lumbar spine 2-3V* [id number] REASON FOR EXAM: W19.XXXA - Unspecified fall, initial encounter FINDINGS: Posterior decompression with posterior pedicle screws L1-S1. Oblique pelvic screws at S2. Interconnec ting rods L1-S2. Significant narrowing of the intervertebral disc spaces L2-S1. No acute compression fracture or other focal vertebral body abnormality. The examination appears unchanged compared to 06/09/2023. XR/XR lumbar spine 2-3V* [id number] IMPRESSION: Stable posterior lumbar fusion without acute abnormality.
--- NOTE | 2024-03-21 08:53 | XR_ITS ---
WS: [email or web address] XR thoracic spine 3V* [id number] REASON FOR EXAM: M54.6 - Pain in thoracic spine FINDINGS: No significant scoliosis or kyphosis, non-standing. No significant vertebral body abnormality. No acute compression fracture identified. Mild narrowing of the intervertebral disc spaces in the mid and lower thoracic spine. Contiguous ante rior flowing osteophyte formation in the mid and lower thoracic spine. XR/XR thoracic spine 3V* [id number] IMPRESSION: Degenerative spondylosis of the thoracic spine as above. No acute abnormality.
== END 2024-03-21 08:51 | disposition home or self-care (01) ==
LOC: RAD 08:53
PROVIDERS: PCP Registered Nurse; Visit Provider Registered Nurse
DX: M48.061 Spinal stenosis, lumbar region without neurogenic claudication (principal); M25.78 Osteophyte, vertebrae; W19.XXXA Unspecified fall, initial encounter; M43.26 Fusion of spine, lumbar region
CPT/HCPCS: 72072; 72100

== ENCOUNTER → 2024-05-21 14:45 | Outpatient (BNVA) | payer MEDICARE, OTHER, SELFPAY | PROVIDERS: PCP Registered Nurse; Visit Provider Internal Medicine Cardiovascular Disease | DX: I48.91 Unspecified atrial fibrillation (principal); I11.0 Hypertensive heart disease with heart failure; I50.31 Acute diastolic (congestive) heart failure; E78.5 Hyperlipidemia, unspecified; I83.893 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 complications; Z87.891 Personal history of nicotine dependence | CPT/HCPCS: 99214 ==

== ENCOUNTER 2024-06-11 08:55 | Outpatient (CLI) | payer MEDICARE, OTHER, SELFPAY ==
--- NOTE | 2024-06-11 09:30 | MR_ITS ---
WS: [id number] MRI LUMBAR SPINE NONCONTRAST HISTORY: M54.50 - Low back pain, unspecified, prior surgery. COMPARISON: 06/07/2022 MRI, lumbar spine 03/21/2024. TECHNIQUE: Sagittal and axial multisequence imaging is submitted. Patient has extensive lumbosacral fusion hardware. Fusion hardware begins at L1 and extends to the sa ha. Increase in the lumbar lordosis. Retrolisthesis of L2, L3 and L4 by 2 to 3 mm. Severe disc space narr owing. Complete obliteration of the L5-S1 disc. Small amount of marrow edema along the superior endpl ate of T12. This is probably a Schmorl's node along the superior endplate of T12 which is new since 07/30/2021. There is associated edema at this level suggesting this may be acute. Disc spaces are all narrowed and desiccated. Conus terminates normally at L1. L1-L2: No central stenosis. L2-L3: Retrolisthesis of L2. Mild narrowing of the central canal. Foramina are obscured by artifact f rom hardware. L3-L4: Retrolisthesis of L3 with osteophytic ridging. Mild central stenosis. Foramina poorly visualiz ed due to artifact. Large central laminectomy defect. L4-L5: Large posterior laminectomy defect. No central stenosis. Mild clumping of the nerve roots from arachnoiditis. Mild foraminal narrowing. L5-S1: Osteophytic ridging. Osteophyte encroaching upon the ventral thecal sac at the disc level. Thi s osteophyte does contact the S1 nerve roots, LEFT greater than RIGHT. Mild bilateral foraminal steno sis. Paravertebral soft tissues are negative. MR/MR lumbar spine wo con* [id number] IMPRESSION: 1. Extensive posterior lumbosacral fusion extending from L1 to the sacrum. The re is significant artifact from the hardware limiting evaluation of the foramin a and central canal at several levels. 2. L5-S1: Osteophytic encroachment upon the ventral thecal sac at the disc lev el contacting the S1 nerve roots, LEFT greater than RIGHT. 3. L2-3 and L3-4: Mild central stenosis. 4. Laminectomy defects are present at L3-4, L4-5 and L5-S1. 5. Mild foraminal narrowing at L4-5 and L5-S1.
== END 2024-06-11 08:56 | disposition home or self-care (01) ==
LOC: RAD 08:56
PROVIDERS: PCP Registered Nurse; Visit Provider Registered Nurse
DX: M43.16 Spondylolisthesis, lumbar region (principal); M25.78 Osteophyte, vertebrae; M43.27 Fusion of spine, lumbosacral region; W19.XXXA Unspecified fall, initial encounter
CPT/HCPCS: 72148

== ENCOUNTER → 2024-07-24 10:30 | Outpatient (BNVA) | payer MEDICARE, OTHER, SELFPAY | PROVIDERS: PCP Registered Nurse; Referring Provider Registered Nurse; Visit Provider Orthopaedic Surgery | DX: Z98.1 Arthrodesis status (principal); M54.9 Dorsalgia, unspecified; M25.78 Osteophyte, vertebrae | CPT/HCPCS: 36415; 72110; 80053; 81001; 85025; 99214 ==

== ENCOUNTER 2024-07-27 06:25 | Day surgery (SDC) | payer MEDICARE, OTHER, SELFPAY ==
[2024-07-27] VITALS (10 sets, daily range): BP systolic 127–181; BP diastolic 51–83; PULSE 58–80; RESP 16–18; TEMP 36.2–36.4; O2SAT 93–99; BMI 33.9
[2024-07-27] MEDS: sodium chloride 0.9% 1,000 ML 30 ML IV (07:04)
--- NOTE | 2024-07-27 07:25 | ANES.PREANE2 ---
Pre-Anesthetic Assessment Height/Weight: Height 5 ft 6 in Weight 210 lb Temp Pulse Resp BP Pulse Ox O2 Del Method 97.5 F L 58 L 18 139/63 98 Room Air 07/27/24 06:49 07/27/24 06:49 07/27/24 06:49 07/27/24 06:49 07/27/24 06:49 07/27/24 06:52 Preop Diagnosis: T12 wedge osteoporotic traumatic compression fracture Operation Date: 07/27/24 08:20 Proposed Procedures p Kyphoplasty(Not Applicable) - Vasquez Sosa, Last intake: Intake Last Liquid Date 07/26/24 Last Liquid Time 23:55 Last Solid Date 07/26/24 Last Solid Time 17:00 Anesthetic Plan ASA status: 3 Anesthesia: General Other: No prior issues with anesthesia NPO since yesterday History of A-fib, on amiodarone, metoprolol and Xarelto. Xarelto taken 07/26/2024. Follows with cardiology, last seen in May History of GERD on Protonix On chronic Lasix Labs 07/24/2024 reviewed and acceptable for procedure. Sodium mildly low at 135 Echo 2022 showing EF 60% Plan for GETA Medications/Allergies Home Medications Medication Instructions Recorded Confirmed Last Taken Type Bone Growth Stimulator E0748 #1 ea 06/16/22 07/24/24 10/10/23 Rx acetaminophen 500 mg tablet 1,000 mg PO Q6H PRN Pain 07/13/22 07/26/24 10/11/23 History blood-glucose meter (Accu-Chek #1 ea 08/19/22 07/24/24 10/10/23 Rx Guide Glucose Meter) lancets (Accu-Chek Softclix #100 ea 08/19/22 07/24/24 10/10/23 Rx Lancets) metoprolol tartrate 50 mg tablet 25 mg PO BID 10/14/22 07/26/24 07/26/24 History blood sugar diagnostic (Accu-Chek #100 ea 11/15/22 07/24/24 10/10/23 Rx Guide test strips) cyanocobalamin (vitamin B-12) 1,000 mcg IM .monthly 30 days #1 mL 06/06/23 07/26/24 10/05/23 Rx 1,000 mcg/mL injection solution amiodarone 200 mg tablet 200 mg PO DAILY 07/26/24 07/26/24 07/26/24 History furosemide 20 mg tablet 20 mg PO DAILY 07/26/24 07/26/24 07/26/24 History pantoprazole 20 mg tablet,delayed 20 mg PO DAILY 07/26/24 07/26/24 07/26/24 History release potassium chloride 20 mEq 20 meq PO BID 07/26/24 07/26/24 07/26/24 History tablet,extended release(part/cryst) (Klor-Con M) pravastatin 40 mg tablet 40 mg PO DIRECTED 07/26/24 07/26/24 07/26/24 History rivaroxaban 20 mg tablet (Xarelto) 20 mg PO QAM 07/26/24 07/26/24 07/26/24 History triamterene 37.5 1 tab PO DAILY 07/26/24 07/26/24 07/26/24 History mg-hydrochlorothiazide 25 mg tablet Allergies Allergy/AdvReac Type Severity Reaction Status Date / Time verapamil AdvReac Intermediate Unknown Verified 07/24/24 10:52 meperidine [From Demerol] AdvReac Mild Nausea,vomi Verified 07/24/24 10:52 ting diltiazem [From Cardizem] AdvReac Unknown Verified 07/24/24 10:52 Current Medications Generic Name Dose Route Start Last Admin Trade Name Freq PRN Reason Stop Dose Admin Sodium Chloride 1,000 mls @ 30 mls/hr 07/27/24 06:45 07/27/24 07:04 Sodium Chloride 0.9% IV 07/28/24 06:44 30 mls/hr .Q24H TRUDY Administration PFSH Anesthesia Medical History Schatzki's ring History of fracture of left hip 1977 (no surgery) History of fractured pelvis 1977 Postmenopausal osteoporosis Screening mammogram, encounter for Contact dermatitis due to plant Right-sided low back pain with sciatica Enrolled in chronic care management GERD (gastroesophageal reflux disease) 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 complications Atrial fibrillation Surgical History History of tonsillectomy H/O tubal ligation History of cataract surgery 2009 Family History Sister Cancer Mother Hypertension Heart failure CAD (coronary artery disease) Father Stroke Grandmother CAD (coronary artery disease) Family/Other CAD (coronary artery disease) Diabetes Suicide Social History Smoking and tobacco/nicotine status: former use of tobacco/nicotine Alcohol intake: current Alcohol intake frequency: 0-2 Drinks per Day Substance/Drug Use: never Lives independently: Yes Marital status: Current occupational status: retired Do you think of yourself as: Straight/Heterosexual Current gender identity: Female Data Anesthesia Cardiac Studies: Echocardiogram 11/17/22 Sestamibi Stress Test (Cardiology) 11/19/22
--- NOTE | 2024-07-27 08:04 | W.PM.OPSUD ---
Surgery/Procedure H&P Update DATE OF PROCEDURE: July 27, 2024 DATE H&P PERFORMED: 07/24/24 H&P UPDATE INFORMATION: I have reviewed H&P completed within last 30 days, I have examined patient prior to procedure and No changes to prior documentation PREOP DIAGNOSIS: T12 wedge osteoporotic traumatic compression fracture PLANNED PROCEDURE: Operation Date: 07/27/24 08:20 Proposed Procedures p Kyphoplasty(Not Applicable) - Vasquez Sosa DO
[2024-07-27] MEDS: ceFAZolin 2,000 mg SDV 2000 MG IVP (08:35)
[2024-07-27] MEDS: lidocaine-epi 1% 20 mL INJ INJECTION (09:00)
[2024-07-27] MEDS: iohexol 300 mg/mL 50 mL Btl 10 ML XX (09:05)
--- NOTE | 2024-07-27 09:22 | XR_ITS ---
WS: [id number] XR lumbar spine 2-3V* [id number] REASON FOR EXAM: OR PICS FINDINGS: Barium impregnated methylmethacrylate within the upper and anterior T12 vertebral body. XR/XR lumbar spine 2-3V* [id number] IMPRESSION: T12 vertebroplasty as above.
--- NOTE | 2024-07-27 09:26 | PM.OP ---
Operative Report Date of procedure: July 27, 2024 Pre-op diagnosis: T12 thoracic wedge compression fracture osteoporotic Post-op diagnosis: same Procedure done: T12 kyphoplasty Surgeon: Vasquez Sosa DO Estimated blood loss (mL): 5 Procedure: Patient brought the op suite after undergoing anesthesia was placed in the prone position. All his impingement well-padded. Patient's prepped draped in also fashion. Skin incision made over the left pedicle. The awl was inserted using biplanar fluoroscopy. Followed by the drill. Followed by the balloon balloon was inflated. Balloon was deflated. Then the cement was injected. Spine had good flow was observed on AP and lateral fluoroscopy. Once the cement was completed AP lateral fluoroscopy was taken showed some in good position. Wounds irrigated closed with nylon suture sterile dressings applied patient transferred to the PACU in stable condition.
--- NOTE | 2024-07-27 10:35 | ANE.PACU2 ---
Inpatient post-anesthesia follow up: Airway intact: Yes Vital signs: Temperature 97.2 F Pulse Rate 59 Respiratory Rate 17 Blood Pressure 138/68 Pulse Oximetry 95 Oxygen Delivery Me thod Room Air Oxygen Flow Rate 2 Fraction of Inspir ed Oxygen Hydration adequate: Yes Pain level: 1 Mental status: Baseline
== END 2024-07-27 10:35 | disposition home or self-care (01) ==
PROVIDERS: PCP Registered Nurse; Visit Provider Orthopaedic Surgery
PROC: (CPT 22513; principal; 2024-07-27 08:10)
DX: S22.080A Wedge compression fracture of T11-T12 vertebra, initial encounter for closed fracture (principal); X58.XXXA Exposure to other specified factors, initial encounter; I48.91 Unspecified atrial fibrillation; K21.9 Gastro-esophageal reflux disease without esophagitis; Z87.891 Personal history of nicotine dependence; Z91.81 History of falling
CPT/HCPCS: 22513; 72100; 76000; J0330; J0690; J1100; J2405; J2704; J2710; J3010; J3490; J7030; Q9967

== ENCOUNTER 2024-08-16 14:03 | Outpatient (CLI) | payer MEDICARE, OTHER, SELFPAY ==
--- NOTE | 2024-08-16 14:06 | XR_ITS ---
WS: [email or web address] Left hip, AP and frog-leg views, 08/16/2024 Clinical Data: M25.552 - Pain in left hip Comparison: Left hip, 02/14/2022 Findings: No fractures or dislocations are seen. The left hip joint is intact with no erosion, sclerosis, narrowing, cyst formation or fragmentation of the left femoral head. There is a posterior lumbosacral fusion with bilateral orthopedic screws fusing the SI joints. There is a soft tissue density measuring 8 cm in the lateral aspect of the left thigh which has been present on prior examinations. Does this density represent a foreign body in the subcutaneous tissue? The adjacent pelvis is normal. XR/XR hip LT 2-3V wo/w pel* [id number] Impression: 1. Negative left hip. 2. Question of foreign body in soft tissue of proximal lateral left thigh.
== END 2024-08-16 14:04 | disposition home or self-care (01) ==
LOC: RAD 14:05
PROVIDERS: PCP Registered Nurse; Visit Provider Registered Nurse
DX: M25.552 Pain in left hip (principal); Z98.1 Arthrodesis status; R93.6 Abnormal findings on diagnostic imaging of limbs
CPT/HCPCS: 73502; 99024

== ENCOUNTER 2024-09-19 09:58 | Outpatient (CLI) | payer MEDICARE, OTHER, SELFPAY ==
--- NOTE | 2024-09-19 10:01 | XR_ITS ---
WS: [email or web address] Right shoulder, 3 views, 09/19/2024 Clinical Data: M25.511 - Pain in right shoulder Comparison: None. Findings: No fractures or dislocations are seen. The AC joint is normal. The adjacent right clavicle, right scapula and ribs are normal. The soft tissues are unremarkable. XR/XR shoulder RT min 2V* [id number] Impression: Negative right shoulder.
== END 2024-09-19 09:59 | disposition home or self-care (01) ==
LOC: RAD 10:00
PROVIDERS: PCP Registered Nurse; Visit Provider Registered Nurse
DX: M25.511 Pain in right shoulder (principal)
CPT/HCPCS: 73030

== ENCOUNTER 2024-09-20 10:29 | Outpatient (CLI) | payer MEDICARE, OTHER, SELFPAY ==
--- NOTE | 2024-09-20 10:33 | XRR_ITS ---
PROCEDURE INFORMATION: Exam: XR Chest Exam date and time: 09/20/2024 10:42 AM Age: 73 years old Clinical indication: Cough and shortness of breath; Cough and SOB for the last week. Tested negative for covid and strep; Additional info: J06.9 - acute upper respiratory infection, unspecified TECHNIQUE: Imaging protocol: Radiologic exam of the chest. Views: 2 views. COMPARISON: CT angio chest PE protcl [id number] 07/13/2022 11:25 AM FINDINGS: Lungs: Calcified pulmonary granulomata are present. Pleural spaces: No pleural effusion or pneumothorax. Heart/Mediastinum: Unremarkable. Bones/joints: Lumbar spine fusion hardware again seen. Features of both DISH and mild degenerative change noted in the spine. Mild dextrocurvature of the thoracic spine. XR/XR chest 2V* [id number] IMPRESSION: No acute pathology or significant interval change.
== END 2024-09-20 10:30 | disposition home or self-care (01) ==
PROVIDERS: PCP Registered Nurse; Visit Provider Registered Nurse
DX: J06.9 Acute upper respiratory infection, unspecified (principal); Z20.822 Contact with and (suspected) exposure to COVID-19; R05.9 Cough, unspecified; J84.10 Pulmonary fibrosis, unspecified; Z98.1 Arthrodesis status; R93.7 Abnormal findings on diagnostic imaging of other parts of musculoskeletal system; M41.84 Other forms of scoliosis, thoracic region
CPT/HCPCS: 71046; 85025; 87400; 87426; 87486; 87581; 87633

== ENCOUNTER 2024-09-24 11:03 | Observation (INO) | payer MEDICARE, OTHER, SELFPAY ==
[2024-09-24 11:05] VITALS: BP 118/63; PULSE 73; TEMP 36.3; O2SAT 99; BMI 31.1
--- NOTE | 2024-09-24 11:22 | XRR_ITS ---
PROCEDURE INFORMATION: Exam: XR Chest Exam date and time: 09/24/2024 11:31 AM Age: 73 years old Clinical indication: Cough and dyspnea and shortness of breath; Additional info: Dyspnea/cough TECHNIQUE: Imaging protocol: Radiologic exam of the chest. Views: 1 view. COMPARISON: CR XR chest 2V* [id number] 09/20/2024 10:42 AM FINDINGS: Lungs: Calcified granulomas medial right lower lung. The lungs are otherwise clear. Pleural spaces: No pneumothorax or pleural effusion. Heart/Mediastinum: Cardiomediastinal silhouette is unremarkable. Bones/joints: No acute osseous or soft tissue abnormality. XR/XR chest 1V portable [id number] IMPRESSION: No acute cardiopulmonary abnormality.
--- NOTE | 2024-09-24 11:23 | ECG_ITS ---
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 [employer]her: : 1950 Requested By: Rj Hurst Order Number: [id number] Reading MD: RAMON GONZALEZ Measurements Intervals [place] Rate: 70 P: 66 CA: 198 QRS: 22 QRSD: 79 T: 9 QT: 391 QTc: 424 Interpretive Statements SINUS RHYTHM NONSPECIFIC ST & T-WAVE ABNORMALITY INTERPRETATION BASED ON A DEFAULT AGE OF 40 YEARS Compared to ECG 07/13/2022 09:40:00 T-wave abnormality now present Atrial fibrillation no longer present ST (T wave) deviation no longer present Electronically Signed On 09-24-2024 18:07:29 CDT by RAMON GONZALEZ [email or web address]
--- NOTE | 2024-09-24 11:25 | W.ED.NAVMDI ---
HPI - Nausea/Vomiting/Diarrhea General: Chief complaint: Nausea/Vomiting/Diarrhea Stated complaint: n/v, weakness, dizzy, dr sent Time Seen by Provider: 09/24/24 11:20 History of Present Illness: 73-year-old female presents emergency room complaining of nausea vomiting weakness last several days. Has been seen a couple times her primary care provider. She had blood work done last week was mildly anemic. She is on triamterene hydrochlorothiazide continues to take this additionally she is on amiodarone and Lasix and metoprolol. She is continue to take both he triamterene-hydrochlorothiazide and Lasix daily. Patient was on Zithromax and then changed to Augmentin. Patient had a full respiratory panel done 4 days ago which was negative. Associated symtoms: Reports fatigue and malaise; Denies chest pain or dysuria Related Data Home Medications ?Medication ?Instructions ?Recorded ?Confirmed acetaminophen 500 mg tablet 1,000 mg PO Q6H PRN Pain 07/13/22 09/24/24 metoprolol tartrate 50 mg tablet 25 mg PO BID 10/14/22 09/24/24 amiodarone 200 mg tablet 200 mg PO DAILY 07/26/24 09/24/24 pantoprazole 20 mg tablet,delayed 20 mg PO DAILY 07/26/24 09/24/24 release rivaroxaban 20 mg tablet (Xarelto) 20 mg PO QAM 07/26/24 09/24/24 Held on 07/27/24. Instructions: Resume on 07/28/24. triamterene 37.5 1 tab PO DAILY 07/26/24 09/24/24 mg-hydrochlorothiazide 25 mg tablet potassium chloride 20 mEq 20 meq PO BID 09/24/24 09/24/24 tablet,extended release(part/cryst) (Klor-Con M) pravastatin 40 mg tablet 40 mg PO QPM 09/24/24 09/24/24 Previous Rx's ?Medication ?Instructions ?Recorded furosemide 20 mg tablet See Rx Instructions .Route 09/06/24 .COMPLEX #90 tabs tramadol 50 mg tablet 50 mg PO BID pain 30 days #60 tabs 09/14/24 amoxicillin 875 mg-potassium 1 tab PO BID 10 days #20 tabs 09/20/24 clavulanate 125 mg tablet benzonatate 100 mg capsule 100 mg PO BID PRN cough 10 days 09/20/24 #20 caps Allergies Allergy/AdvReac Type Severity Reaction Status Date / Time verapamil AdvReac Intermediate Unknown Verified 09/24/24 11:15 meperidine (From Demerol) AdvReac Mild Nausea,vomi Verified 09/24/24 11:15 ting diltiazem (From Cardizem) AdvReac Unknown Verified 09/24/24 11:15 Review of Systems Const: Reports: change in appetite, fatigue and malaise; Denies: fever(s) or chills Card: Denies: chest pain Resp: Denies: dyspnea GI: Denies: abdominal pain : Denies: dysuria, urinary frequency or urinary urgency Musc: Denies: neck pain or back pain Skin/Breast: Denies: rash PFSH ED PFSH: Medical History Schatzki's ring History of fracture of left hip 1977 (no surgery) History of fractured pelvis 1977 Postmenopausal osteoporosis Screening mammogram, encounter for Contact dermatitis due to plant Right-sided low back pain with sciatica Enrolled in chronic care management GERD (gastroesophageal reflux disease) 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 complications Atrial fibrillation Surgical History History of tonsillectomy H/O tubal ligation History of cataract surgery 2009 Family History Sister Cancer Mother Hypertension Heart failure CAD (coronary artery disease) Father Stroke Grandmother CAD (coronary artery disease) Family/Other CAD (coronary artery disease) Diabetes Suicide Social History Smoking and tobacco/nicotine status: never used tobacco/nicotine Alcohol intake: current Alcohol intake frequency: 0-2 Drinks per Day Substance/Drug Use: never Lives independently: Yes Marital status: Current occupational status: retired Do you think of yourself as: Straight/Heterosexual Current gender identity: Female Physical Exam Const: GENERAL APPEARANCE: cooperative ORIENTATION/CONSCIOUSNESS: Yes awake, Yes oriented to person, Yes oriented to place and Yes oriented to time HENMT: COMMON NORMALS: normocephalic, atraumatic and hearing grossly normal bilaterally HEAD & SCALP: normocephalic and atraumatic Resp: COMMON NORMALS: normal respiratory effort, No retractions, No use of accessory muscles and clear to auscultation bilaterally AUSCULTATION: clear to auscultation bilaterally Cardio: COMMON NORMALS: regular rate, regular rhythm and No murmurs present (Cardio) RATE: regular rate RHYTHM: regular rhythm GI: COMMON NORMALS: Soft to palpation and No hepatosplenomegaly present AUSCULTATION: Yes normoactive bowel sounds PALPATION: Yes Soft to palpation, No Tenderness to palpation present (GI), No Guarding due to palpation present (GI) and Yes No hepatosplenomegaly present Extremity: COMMON NORMALS: normal to inspection, capillary refill normal, no clubbing, cyanosis or edema, no calf tenderness and no pedal edema Neuro: SENSORIUM/ORIENTATION: Yes oriented to person, Yes oriented to place and Yes oriented to time Skin: COMMON NORMALS: no rashes or lesions noted GENERAL SKIN EXAM: no rashes or lesions noted Course Vital Signs: Vital signs: Vital Signs Temperature 97.4 F L 09/24/24 11:05 Pulse Rate 74 09/24/24 13:21 Blood Pressure 118/63 09/24/24 11:05 Pulse Oximetry 97 09/24/24 13:21 Oxygen Delivery Me thod Room Air 09/24/24 11:05 MDM - Nausea/Vomiting/Diarrhea Medical Decision Making Persistent nausea vomiting hyponatremia and hypokalemia as well as elevated liver enzymes. No biliary colic and the CT does not show any dilation of common bile duct any signs of acute cholecystitis or cholelithiasis. Will admit patient IV fluids potassium replacement discussed with hospitalist orders written for observation. Medical Records I reviewed the patient's medical records. Lab Data I reviewed the patient's lab results. 09/24/24 11:30 09/24/24 12:18 Radiology Impressions Chest X-Ray 09/24/24 11:22 IMPRESSION: No acute cardiopulmonary abnormality. Abdomen/Pelvis CT 09/24/24 11:42 IMPRESSION: No bowel obstruction or acute inflammation. Laboratory Results WBC 12.06 10^3/uL (3.29-11.43) H 09/24/24 11:30 RBC 5.49 10^6/uL (3.85-5.65) 09/24/24 11:30 Hgb 11.60 g/dL (11.27-16.99) 09/24/24 11:30 Hct 39.1 % (36-47) 09/24/24 11:30 MCV 71.2 fl (85-98) L 09/24/24 11:30 MCH 21.1 pg (27-33) L 09/24/24 11:30 MCHC 29.7 g/dL (30-55) L 09/24/24 11:30 RDW 18.1 % (12.1-15.1) H 09/24/24 11:30 Plt Count 685 10^3/cmm (157-399) H 09/24/24 11:30 MPV 9.6 fL (7.4-10.4) 09/24/24 11:30 Neut % (Auto) 78.8 % 09/24/24 11:30 Lymph % (Auto) 9.9 % 09/24/24 11:30 [place] % (Auto) 9.3 % 09/24/24 11:30 Eos % (Auto) 1.3 % 09/24/24 11:30 Baso % (Auto) 0.3 % 09/24/24 11:30 Neut # (Auto) 9.50 10^3/uL (1.8-7.7) H 09/24/24 11:30 Lymph # (Auto) 1.2 10^3/uL (0.8-4.8) 09/24/24 11:30 [place] # (Auto) 1.1 10^3/uL (0.2-0.9) H 09/24/24 11:30 Eos # (Auto) 0.2 10^3/uL (0.0-0.8) 09/24/24 11:30 Baso # (Auto) 0.0 10^3/uL (0.0-0.1) 09/24/24 11:30 Nucleated RBC % (auto) 0 % 09/24/24 11:30 Nucleated RBCs # 0.0 /100WBC 09/24/24 11:30 Sodium 126 mmol/L (136-145) L 09/24/24 12:18 Potassium 2.9 mmol/L (3.5-5.1) L 09/24/24 12:18 Chloride 86 mmol/L (98-107) L 09/24/24 12:18 Carbon Dioxide 23 mmol/L (22-29) 09/24/24 12:18 Anion Gap 19.9 (5-19) H 09/24/24 12:18 BUN 31 mg/dL (8-23) H 09/24/24 12:18 Creatinine 1.0 mg/dL (0.5-0.9) H 09/24/24 12:18 GFR Calculation Not Reportable 09/24/24 12:18 Glucose 128 mg/dL (65-115) H 09/24/24 12:18 Calculated Osmolality 270 mOsm/kg (285-295) L 09/24/24 12:18 Calcium 10.0 mg/dL (8.5-10.5) 09/24/24 12:18 Magnesium 2.3 mg/dL (1.7-2.3) 09/24/24 12:18 Total Bilirubin 1.1 mg/dL (0.15-1.2) 09/24/24 12:18 AST 148 U/L (0-32) H 09/24/24 12:18 ALT 114 U/L (0-33) H 09/24/24 12:18 Alkaline Phosphatase 145 U/L (35-105) H 09/24/24 12:18 Troponin T Baseline 18 ng/L (0-10) H 09/24/24 11:30 Troponin T 120 Minute 17.05 ng/L (0-10) H 09/24/24 13:16 Delta Troponin T -0.95 ABS# (0-10) L 09/24/24 13:16 Total Protein 8.6 g/dL (6.6-8.7) 09/24/24 12:18 Albumin 4.5 g/dL (3.5-5.2) 09/24/24 12:18 Globulin 4.1 g/dL (1.3-4.6) 09/24/24 12:18 Lipase 59 U/L (13-60) 09/24/24 12:18 Urine Color Yellow (Yellow) 09/24/24 13:04 Urine Appearance Clear (CLEAR) 09/24/24 13:04 Urine pH 6.0 (5-7) 09/24/24 13:04 Ur Specific [place] 1.017 (1.005-1.030) 09/24/24 13:04 Urine Protein 1+ (Negative) A 09/24/24 13:04 Urine Glucose (UA) Negative (Normal) 09/24/24 13:04 Urine Ketones Negative (Negative) 09/24/24 13:04 Urine Blood Negative (Negative) 09/24/24 13:04 Urine Nitrate Negative (Negative) 09/24/24 13:04 Urine Bilirubin Negative (Negative) 09/24/24 13:04 Urine Urobilinogen 1.0 mg/dL (Negative) 09/24/24 13:04 Ur Leukocyte Esterase Negative (Negative) 09/24/24 13:04 Urine RBC 0-2 /hpf (0-2) 09/24/24 13:04 Urine WBC 0-5 /hpf (0-5) 09/24/24 13:04 Ur Squamous Epith Cells 6-10 /hpf (0-5) 09/24/24 13:04 Amorphous Sediment Not Reportable 09/24/24 13:04 Urine Bacteria None seen /hpf (NONE) 09/24/24 13:04 Hyaline Casts 7.42 /lpf 09/24/24 13:04 Fine Granular Casts 0-4 /lpf H 09/24/24 13:04 All radiology interpretation(s) finalized by discharge Discharge Plan Discharge Patient Disposition: Placed in Observation Clinical Impression: Gastroenteritis, Elevated liver enzymes, Hyponatremia, Hypokalemia Coding Level of Care Code ED Menu Planner for Julian Hays
[2024-09-24 11:39] LABS: Basophils % 0.3 %; Eosinophils # 0.2 10^3/uL (0.0-0.8); Eosinophils % 1.3 %; Hematocrit 39.1 % (36-47); Lymphocytes # 1.2 10^3/uL (0.8-4.8); Lymphocytes % 9.9 %; Mean Corpuscular HGB Conc 29.7 g/dL (30-55); Mean Corpuscular Hemoglobin 21.1 pg (27-33); Mean Corpuscular Volume 71.2 fl (85-98); Mean Platelet Volume 9.6 fL (7.4-10.4); Monocytes # 1.1 10^3/uL (0.2-0.9); Monocytes % 9.3 %; Neutrophils % 78.8 %; Nucleated Red Blood Cells % 0 %; Platelet Count 685 10^3/cmm (157-399); Red Blood Count 5.49 10^6/uL (3.85-5.65); Red Cell Distribution Width 18.1 % (12.1-15.1); White Blood Count 12.06 10^3/uL (3.29-11.43)
--- NOTE | 2024-09-24 11:42 | CTR_ITS ---
PROCEDURE INFORMATION: Exam: CT Abdomen And Pelvis Without Contrast Exam date and time: 09/24/2024 12:02 PM Age: 73 years old Clinical indication: Abdominal pain; Generalized TECHNIQUE: Imaging protocol: Computed tomography of the abdomen and pelvis without contrast. Radiation optimization: All CT scans at this facility use at least one of these dose optimization techniques: automated exposure control; mA and/or kV adjustment per patient size (includes targeted exams where dose is matched to clinical indication); or iterative reconstruction. COMPARISON: CR XR hip LT 2-3V wo/w pel* [id number] 08/16/2024 2:29 PM RADIATION DOSE METRICS: Total DLP (mGy-cm): 890.4 FINDINGS: Lungs: Lung bases are clear as visualized. Diaphragm: Tiny hiatal hernia. Liver: Normal. No mass. Gallbladder and biliary ducts: Normal. No calcified stones. No ductal dilation. Pancreas: Normal. No ductal dilation. Spleen: Normal. No splenomegaly. Adrenal glands: Normal. No mass. Kidneys and ureters: Normal. No hydronephrosis. Stomach and bowel: No bowel obstruction or acute inflammation. Administered enteric contrast present up to the rectum. Appendix: Appendix is normal. Intraperitoneal space: Unremarkable. No free air. No significant fluid collection. Vasculature: Unremarkable. No abdominal aortic aneurysm. Lymph nodes: Unremarkable. No enlarged lymph nodes. Urinary bladder: Unremarkable as visualized. Reproductive: Unremarkable as visualized. Bones/joints: Posterior instrumented fusion spans L2-S2. No evidence of hardware complication. Prior vertebroplasty anterior L1 level. Remote, healed fracture of the left pubic body, with associated osteophyte. Soft tissues: Unremarkable. CT/CT abdomen pelvis wo con [id number] IMPRESSION: No bowel obstruction or acute inflammation.
[2024-09-24 11:56] LABS: Troponin(5th) Baseline 18 ng/L (0-10)
[2024-09-24 12:46] LABS: Alanine Aminotransferase 114 U/L (0-33); Albumin Level 4.5 g/dL (3.5-5.2); Alkaline Phosphatase 145 U/L (35-105); Aspartate Amino Transferase 148 U/L (0-32); Blood Urea Nitrogen 31 mg/dL (8-23); Carbon Dioxide 23 mmol/L (22-29); Chloride 86 mmol/L (98-107); Creatinine Clr Calc Pharmacy 54.1735; Globulin 4.1 g/dL (1.3-4.6); Glucose 128 mg/dL (65-115); Lipase 59 U/L (13-60); Magnesium 2.3 mg/dL (1.7-2.3); Osmolality Calculated 270 mOsm/kg (285-295); Sodium 126 mmol/L (136-145); Total Bilirubin 1.1 mg/dL (0.15-1.2); Total Protein 8.6 g/dL (6.6-8.7)
[2024-09-24 13:04] LABS: Anion Gap 19.9 (5-19)
[2024-09-24 13:06] LABS: Potassium 2.9 mmol/L (3.5-5.1)
[2024-09-24] MEDS: potassium chloride oral liq 20 mEq/15 mL UDC 40 MEQ PO (13:19)
[2024-09-24 13:21] VITALS: PULSE 74; O2SAT 97
[2024-09-24 13:22] LABS: Bilirubin Urine Negative (Negative); Blood Urine Negative (Negative); Glucose Urine UA Negative (Normal); Ketones Urine Negative (Negative); Leukocyte Esterase Urine Negative (Negative); Nitrate Urine Negative (Negative); Protein Urine 1+ (Negative); Specific Gravity, Urine 1.017 (1.005-1.030); Urine Appearance Clear (CLEAR); Urine Color Yellow (Yellow)
--- NOTE | 2024-09-24 13:23 | ECG_ITS ---
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
[2024-09-24 13:27] LABS: Add Urine Microscopic? YES; Bacteria Urine None Seen /hpf; Hyaline Casts Urine 7.42 /lpf; RBC Urine 0-2 /hpf (0-2); WBC Urine 0-5 /hpf (0-5)
[2024-09-24 13:37] LABS: Fine Granular Casts Urine 0-4 /lpf; UA Slide Review UA Slide Review Perf
[2024-09-24 13:38] LABS: Add Urine Culture? No
[2024-09-24 13:54] LABS: Troponin 5 2HR 17.05 ng/L (0-10)
[2024-09-24 13:59] LABS: Troponin 5 2HR Delta -0.95 ABS# (0-10)
[2024-09-24] MEDS: sodium chloride 0.9% 1,000 ML 999 ML IV (14:16)
--- NOTE | 2024-09-24 14:23 | PM.HP ---
Providers/Chief Complaint Primary Care Provider: LYNETTE Robert Chief Complaint: n/v, weakness, dizzy, dr sent History of Present Illness Angela Lawler is a 73 year old female Past medical history of atrial fibrillation, chronically on amiodarone and Xarelto, hypertension, hypokalemia presented to the hospital with complaint of not feeling well for the last few weeks. She states that she has a lot of mucus in her throat coming from her nose which causes her to end up gagging coughing and then vomiting. She denies having any diarrhea. She states that it all starts with a phlegm in her throat. Subsequently she becomes nauseous and then throws up. She says all the phlegm is in the roof of her mouth. She has not taken any steroids. Denies any diarrhea. She states for the last few days she has not had a bowel movement either which she attributes to not eating and secondary to continuous vomiting having lack of appetite. Denies a fever. Denies abdominal pain chest pain shortness of breath. Review of systems mainly negative. Denies recent viral illness. Despite the vomiting she states she was taking all of her medications as directed including her triamterene hydrochlorothiazide and Lasix. She just has not taken any medication today. ER course: Liver enzymes mildly elevated, CT abdomen pelvis did not show bowel obstruction or acute inflammation. She was found to be hypokalemic with potassium of 2.9 and sodium 126. Patient appeared quite dehydrated. Troponins delta -0.95 at 6 hours. Medications/Allergies Home Medications ?Medication ?Instructions ?Recorded ?Confirmed ?Last Taken ?Type acetaminophen 500 mg tablet 1,000 mg PO Q6H PRN Pain 07/13/22 09/24/24 10/11/23 History metoprolol tartrate 50 mg tablet 25 mg PO BID 10/14/22 09/24/24 09/24/24 History amiodarone 200 mg tablet 200 mg PO DAILY 07/26/24 09/24/24 09/24/24 History rivaroxaban 20 mg tablet (Xarelto) 20 mg PO QAM 07/26/24 09/24/24 09/24/24 History triamterene 37.5 1 tab PO DAILY 07/26/24 09/24/24 09/24/24 History mg-hydrochlorothiazide 25 mg tablet Held on 09/25/24. Instructions: see pcp furosemide 20 mg tablet See Rx Instructions .Route 09/06/24 09/24/24 09/24/24 Rx Held on 09/25/24. .COMPLEX #90 tabs Instructions: may resume in 72 hours tramadol 50 mg tablet 50 mg PO BID pain 30 days #60 tabs 09/14/24 09/24/24 09/23/24 Rx benzonatate 100 mg capsule 100 mg PO BID PRN cough 10 days 09/20/24 09/24/24 Unknown Rx #20 caps potassium chloride 20 mEq 20 meq PO BID 09/24/24 09/24/24 09/24/24 History tablet,extended release(part/cryst) (Klor-Con M) pravastatin 40 mg tablet 40 mg PO QPM 09/24/24 09/24/24 09/23/24 History pantoprazole 20 mg tablet,delayed See Rx Instructions .Route 09/26/24 Unknown Rx release .COMPLEX #90 tabs Allergies Allergy/AdvReac Type Severity Reaction Status Date / Time verapamil AdvReac Intermediate Unknown Verified 09/24/24 11:15 meperidine (From Demerol) AdvReac Mild Nausea,vomi Verified 09/24/24 11:15 ting diltiazem (From Cardizem) AdvReac Unknown Verified 09/24/24 11:15 PFSH Acute PFSH: Medical History Schatzki's ring History of fracture of left hip 1977 (no surgery) History of fractured pelvis 1977 Postmenopausal osteoporosis Screening mammogram, encounter for Contact dermatitis due to plant Right-sided low back pain with sciatica Enrolled in chronic care management GERD (gastroesophageal reflux disease) 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 complications Atrial fibrillation Surgical History History of tonsillectomy H/O tubal ligation History of cataract surgery 2009 Family History Sister Cancer Mother Hypertension Heart failure CAD (coronary artery disease) Father Stroke Grandmother CAD (coronary artery disease) Family/Other CAD (coronary artery disease) Diabetes Suicide Social History Smoking and tobacco/nicotine status: never used tobacco/nicotine Alcohol intake: current Alcohol intake frequency: 0-2 Drinks per Day Substance/Drug Use: never Lives independently: Yes Marital status: Current occupational status: retired Do you think of yourself as: Straight/Heterosexual Current gender identity: Female Vitals/I&O/Wt Last Vital Signs Temp 97.4 F L 09/24/24 11:05 Pulse 74 09/24/24 13:21 BP 118/63 09/24/24 11:05 Pulse Ox 97 09/24/24 13:21 O2 Del Method Room Air 09/24/24 11:05 Weight last 48 hrs Weight 87.543 kg Physical Exam Narrative: General: Alert oriented x3, patient seen laying in bed appearing comfortable at this time HEENT: Normocephalic, atraumatic, EOMI, breathing room air Cardio: Regular rate rhythm, normal S1-S2, Respiratory: Clear to auscultation bilaterally no wheezes no rhonchi GI: Abdomen soft, nontender, nondistended, bowel sounds + Behavior: Appropriate and cooperative Extremities: No edema noted. Data 09/25/24 12:54 09/25/24 09:46 A&P Assessment and plan (1) Postnasal drip: (2) Dehydration: (3) Vomiting: (4) Benign essential HTN: (5) Atrial fibrillation: Qualifiers: Atrial fibrillation type: unspecified Qualified Code(s): I48.91 - Unspecified atrial fibrillation (6) GERD (gastroesophageal reflux disease): Qualifiers: Esophagitis presence: without esophagitis Qualified Code(s): K21.9 - Gastro-esophageal reflux disease without esophagitis (7) Hypokalemia: Plan #Postnasal drip #Possible gastroenteritis #Nausea vomiting, loss of appetite most likely secondary to above #A-fib, rate controlled, chronic anticoagulation #Diastolic heart failure, chronic, compensated #Dehydrated #Hypokalemia ? Patient received potassium 40 oral x 2 in ER, 1 L normal saline bolus ? Will place on continuous fluids 75 cc/h ? Replete potassium ? Placed on potassium 20 twice daily as per home dose ? Hold Lasix and triamterene and hydrochlorothiazide ? Continue metoprolol tartrate 25 twice daily, Xarelto ? Continue amiodarone ? CT abdomen pelvis reviewed, no acute pathology noted ? Chest x-ray shows no pneumonia ? I believe patient's symptoms may be related to postnasal drip and excessive sputum secondary to the above causing her to vomit. Patient appears to be severely dehydrated. We will manage conservatively at this time with IV fluids and repeat electrolytes. If she tolerates a clear liquid diet and subsequently GI soft diet may consider discharge home in a.m. ? Admit to medical surgical floor as observation DVT prophylaxis: Chronically on Xarelto Full code PDMP PDMP Reviewed: Not Reviewed Attestations Medical Necessity Statement*: Observation admission for dehydration, hypokalemia, nausea vomiting Diagnoses Postnasal drip R09.82 Dehydration E86.0 Vomiting R11.10 Benign essential HTN I10 Atrial fibrillation, unspecified type I48.91 Atrial fibrillation type: unspecified Gastroesophageal reflux disease without esophagitis K21.9 Esophagitis presence: without esophagitis Hypokalemia E87.6
[2024-09-24] MEDS: heparin 5,000 unit/mL INJ 1 mL 5000 UNIT SUBCUT (14:50)
[2024-09-24 15:09] LABS: NT Pro B Type Natriuretic Pept 269 pg/mL (0-450); Procalcitonin 0.28 ng/mL (0-0.5)
[2024-09-24 15:20] LABS: Anion Gap 19.5 (5-19); Blood Urea Nitrogen 30 mg/dL (8-23); Calcium 9.2 mg/dL (8.5-10.5); Carbon Dioxide 22 mmol/L (22-29); Chloride 92 mmol/L (98-107); Creatinine Clr Calc Pharmacy 49.2487; Glucose 150 mg/dL (65-115); Magnesium 2.2 mg/dL (1.7-2.3); Osmolality Calculated 279 mOsm/kg (285-295); Phosphorus 3.1 mg/dL (2.5-4.5); Potassium 3.5 mmol/L (3.5-5.1); Sodium 130 mmol/L (136-145)
[2024-09-24 16:00] VITALS: BP 141/60; PULSE 65; RESP 16; TEMP 36.6; O2SAT 97
[2024-09-24 16:06] VITALS: BP 128/61; PULSE 67; O2SAT 97
[2024-09-24 16:43] LABS: Urine Random Sodium < 10 mmol/L
[2024-09-24 16:53] VITALS: BP 140/71; PULSE 66; O2SAT 98
[2024-09-24 17:24] VITALS: BMI 31.1
[2024-09-24] MEDS: metoprolol tartrate 50 mg Tablet 25 MG PO (17:34)
[2024-09-24] MEDS: potassium chloride ER 20 mEq Tablet PO (17:34)
[2024-09-24] MEDS: atorvastatin 40 mg Tablet 20 MG PO (17:34)
[2024-09-24] MEDS: sodium chloride 0.9% 1,000 ML 75 ML IV (17:35)
[2024-09-24 18:43] LABS: Troponin 5 6HR 17.37 ng/L (0-10); Troponin 5 6HR Delta -0.63 ng/L (0-12)
[2024-09-24 18:44] LABS: Anion Gap 19.3 (5-19); Blood Urea Nitrogen 29 mg/dL (8-23); Calcium 9.2 mg/dL (8.5-10.5); Carbon Dioxide 20 mmol/L (22-29); Chloride 94 mmol/L (98-107); Creatinine Clr Calc Pharmacy 60.1928; Glucose 150 mg/dL (65-115); Osmolality Calculated 279 mOsm/kg (285-295); Potassium 3.3 mmol/L (3.5-5.1); Sodium 130 mmol/L (136-145)
--- NOTE | 2024-09-24 18:55 | ECG_ITS ---
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 Measurements Intervals [place] Rate: 66 P: 3 RI: 226 QRS: 2 QRSD: 94 T: 1 QT: 338 QTc: 356 Interpretive Statements SINUS RHYTHM WITH FIRST DEGREE AV BLOCK WITH OCCASIONAL SUPRAVENTRICULAR PREMATURE COMPLEXES LEFT VENTRICULAR HYPERTROPHY AND ST-T CHANGE [VOLTAGE CRITERIA PLUS ST/T ABNORMALITY] Compared to ECG 09/24/2024 13:54:35 First degree AV block now present Left ventricular hypertrophy now present ST (T wave) deviation now present T-wave abnormality no longer present Electronically Signed On 09-25-2024 19:29:59 CDT by Corine Vargas M.D. [email or web address] [id number]
[2024-09-24 20:00] VITALS: BP 108/63; PULSE 61; RESP 20; TEMP 36.6; O2SAT 95
[2024-09-24 22:50] LABS: Anion Gap 16.3 (5-19); Blood Urea Nitrogen 28 mg/dL (8-23); Carbon Dioxide 22 mmol/L (22-29); Chloride 95 mmol/L (98-107); Creatinine Clr Calc Pharmacy 67.7169; Glucose 102 mg/dL (65-115); Osmolality Calculated 276 mOsm/kg (285-295); Potassium 3.3 mmol/L (3.5-5.1); Sodium 130 mmol/L (136-145)
[2024-09-25] VITALS: BP 115/66; PULSE 65; RESP 18; TEMP 36.9; O2SAT 96
[2024-09-25 03:52] LABS: Anion Gap 14.4 (5-19); Blood Urea Nitrogen 25 mg/dL (8-23); Calcium 8.7 mg/dL (8.5-10.5); Carbon Dioxide 23 mmol/L (22-29); Chloride 97 mmol/L (98-107); Creatinine Clr Calc Pharmacy 60.1928; Glucose 110 mg/dL (65-115); Osmolality Calculated 277 mOsm/kg (285-295); Potassium 3.4 mmol/L (3.5-5.1); Sodium 131 mmol/L (136-145)
[2024-09-25 04:00] VITALS: BP 111/67; PULSE 60; RESP 16; TEMP 36.7; O2SAT 98
[2024-09-25] MEDS: sodium chloride 0.9% 1,000 ML 75 ML IV (06:22)
[2024-09-25] MEDS: rivaroxaban 10 mg Tablet 20 MG PO (06:22)
[2024-09-25 07:11] LABS: Basophils # 0.1 10^3/uL (0.0-0.1); Basophils % 0.8 %; Eosinophils # 0.3 10^3/uL (0.0-0.8); Eosinophils % 3.2 %; Hematocrit 30.8 % (36-47); Lymphocytes # 1.3 10^3/uL (0.8-4.8); Lymphocytes % 13.9 %; Mean Corpuscular HGB Conc 29.2 g/dL (30-55); Mean Corpuscular Hemoglobin 21.4 pg (27-33); Mean Corpuscular Volume 73.2 fl (85-98); Mean Platelet Volume 9.7 fL (7.4-10.4); Monocytes # 1.1 10^3/uL (0.2-0.9); Monocytes % 12.2 %; Neutrophils # 6.27 10^3/uL (1.8-7.7); Neutrophils % 69.5 %; Nucleated Red Blood Cells % 0 %; Platelet Count 448 10^3/cmm (157-399); Red Blood Count 4.21 10^6/uL (3.85-5.65); Red Cell Distribution Width 18.1 % (12.1-15.1); White Blood Count 9.02 10^3/uL (3.29-11.43)
[2024-09-25 07:36] LABS: Alanine Aminotransferase 85 U/L (0-33); Albumin Level 3.6 g/dL (3.5-5.2); Alkaline Phosphatase 115 U/L (35-105); Anion Gap 15.4 (5-19); Aspartate Amino Transferase 101 U/L (0-32); Blood Urea Nitrogen 22 mg/dL (8-23); Calcium 8.6 mg/dL (8.5-10.5); Carbon Dioxide 23 mmol/L (22-29); Chloride 98 mmol/L (98-107); Creatinine Clr Calc Pharmacy 67.7169; Globulin 2.9 g/dL (1.3-4.6); Glucose 103 mg/dL (65-115); Osmolality Calculated 280 mOsm/kg (285-295); Potassium 3.4 mmol/L (3.5-5.1); Sodium 133 mmol/L (136-145); Total Bilirubin 0.8 mg/dL (0.15-1.2); Total Protein 6.5 g/dL (6.6-8.7)
[2024-09-25 08:00] VITALS: BP 118/54; PULSE 64; RESP 17; TEMP 36.6; O2SAT 98
[2024-09-25] MEDS: amiodarone 200 mg Tablet PO (08:50)
[2024-09-25] MEDS: pantoprazole DR 40 mg Tablet PO (08:50)
[2024-09-25] MEDS: potassium chloride ER 20 mEq Tablet PO (08:50)
[2024-09-25] MEDS: metoprolol tartrate 50 mg Tablet 25 MG PO (08:50)
[2024-09-25 10:10] LABS: Anion Gap 18.4 (5-19); Blood Urea Nitrogen 19 mg/dL (8-23); Calcium 8.6 mg/dL (8.5-10.5); Carbon Dioxide 20 mmol/L (22-29); Chloride 96 mmol/L (98-107); Creatinine Clr Calc Pharmacy 67.7169; Glucose 122 mg/dL (65-115); Osmolality Calculated 276 mOsm/kg (285-295); Potassium 3.4 mmol/L (3.5-5.1); Sodium 131 mmol/L (136-145)
--- NOTE | 2024-09-25 10:19 | PC.CHAP ---
Pastoral Care Encounter/Spiritual Assessment Type of Contact [] Declined site administrator visit [] Patient/Family/Request visit [] Outpatient visit [] Follow-up visit [] Physician referral [] Code/Alert [x] Routine visit [] Staff referral [] Actively dying [] Patient sleeping [x] Family support [] [] Out of room [] Palliative care [] [] Receiving care in room [] Pre-surgical visit [] Trauma [] Long length of stay [] ICU visit [] Other: Relational/Emotional Strength [x] Patient feels connected with others/family/visitors/staff [] Distress [] Loneliness/isolation [] Abandonment Spirituality of Patient [x] Person of [place] [] Attends Orthodox of their [place] [x] Believes in Prayer [] Reads Bible or Jain materials [] There are Spiritual issues to be addressed Recovery Room Nurse Interventions [x] Prayer [x] Active listening [x] Non-anxious presence [x] Spiritual/emotional support [] Crisis/trauma care [] Spiritual counseling [] Bereavement support [] Provided bereavement packet [] Provided Bible/devotional materials [] Provided toy/stuffed animal, coloring book to patient or family member [] Provided Communion [] Anointing/[place] [] Salvation [x] Completed spiritual assessment [] Other: Impact on Illness or Injury [] Angry [] Fearful [] Anxious [] Often cries [] Exhaustion [] Unable to work [] Unable to attend caodaism [] Unable to walk/stand [] Unable to read [] Unable to drive [] Unable to eat/drink [] Unable to sleep [] Unable to be with family [] Patient intubated [] Other: Summary Time spent with patient 5 min
[2024-09-25 11:31] VITALS: BP 117/66; PULSE 56; RESP 16; TEMP 36.6; O2SAT 96
[2024-09-25 13:01] LABS: Basophils # 0.1 10^3/uL (0.0-0.1); Basophils % 0.8 %; Eosinophils # 0.3 10^3/uL (0.0-0.8); Eosinophils % 3.5 %; Hematocrit 32.3 % (36-47); Lymphocytes # 1.1 10^3/uL (0.8-4.8); Lymphocytes % 11.9 %; Mean Corpuscular HGB Conc 29.4 g/dL (30-55); Mean Corpuscular Hemoglobin 21.6 pg (27-33); Mean Corpuscular Volume 73.6 fl (85-98); Mean Platelet Volume 8.9 fL (7.4-10.4); Monocytes % 11.6 %; Neutrophils # 6.44 10^3/uL (1.8-7.7); Neutrophils % 71.9 %; Nucleated Red Blood Cells % 0 %; Platelet Count 444 10^3/cmm (157-399); Red Blood Count 4.39 10^6/uL (3.85-5.65); Red Cell Distribution Width 18.1 % (12.1-15.1); White Blood Count 8.96 10^3/uL (3.29-11.43)
--- NOTE | 2024-09-25 14:21 | P.DS_ITS ---
Discharge Providers Date of Admission: 09/24/24 15:24 Date of Discharge: September 25, 2024 Attending Provider at Admission: Nani Dean MD Attending Provider at Discharge: Nani Dean MD Primary Care Provider: LYNETTE Robert Reason for Visit Reason for Visit: n/v, weakness, dizzy, dr sent Hospital Course Hospital Course Patient was admitted for dehydration. She was placed on IV fluids. Hypokalemia was corrected. She felt better the next day after IV fluids and was tolerating GI soft diet and was discharged home in stable condition. Please see H&P for details. Physical Exam Narrative: General: Alert oriented x3, patient seen laying in bed appearing comfortable at this time HEENT: Normocephalic, atraumatic, EOMI, breathing room air Cardio: Regular rate rhythm, normal S1-S2, Respiratory: Clear to auscultation bilaterally no wheezes no rhonchi GI: Abdomen soft, nontender, nondistended, bowel sounds + Behavior: Appropriate and cooperative Extremities: No edema noted. Discharge Data Studies Completed and Pending Completed Studies During Hospitalization Category Date Time Status CT abdomen pelvis wo con [id number] Stat Cat Scan 09/24/24 11:42 Completed XR chest 1V portable [id number] Stat Exams 09/24/24 11:22 Completed Pending at discharge Category Date Time Status Osmolality Serum Stat Lab 09/24/24 14:37 Received Osmolality Urine Stat Lab 09/24/24 13:04 Received Radiology Impressions Chest X-Ray 09/24/24 11:22 IMPRESSION: No acute cardiopulmonary abnormality. Abdomen/Pelvis CT 09/24/24 11:42 IMPRESSION: No bowel obstruction or acute inflammation. Laboratory Results WBC 8.96 10^3/uL (3.29-11.43) 09/25/24 12:54 RBC 4.39 10^6/uL (3.85-5.65) 09/25/24 12:54 Hgb 9.50 g/dL (11.27-16.99) L 09/25/24 12:54 Hct 32.3 % (36-47) L 09/25/24 12:54 MCV 73.6 fl (85-98) L 09/25/24 12:54 MCH 21.6 pg (27-33) L 09/25/24 12:54 MCHC 29.4 g/dL (30-55) L 09/25/24 12:54 RDW 18.1 % (12.1-15.1) H 09/25/24 12:54 Plt Count 444 10^3/cmm (157-399) H 09/25/24 12:54 MPV 8.9 fL (7.4-10.4) 09/25/24 12:54 Neut % (Auto) 71.9 % 09/25/24 12:54 Lymph % (Auto) 11.9 % 09/25/24 12:54 [place] % (Auto) 11.6 % 09/25/24 12:54 Eos % (Auto) 3.5 % 09/25/24 12:54 Baso % (Auto) 0.8 % 09/25/24 12:54 Neut # (Auto) 6.44 10^3/uL (1.8-7.7) 09/25/24 12:54 Lymph # (Auto) 1.1 10^3/uL (0.8-4.8) 09/25/24 12:54 [place] # (Auto) 1.0 10^3/uL (0.2-0.9) H 09/25/24 12:54 Eos # (Auto) 0.3 10^3/uL (0.0-0.8) 09/25/24 12:54 Baso # (Auto) 0.1 10^3/uL (0.0-0.1) 09/25/24 12:54 Nucleated RBC % (auto) 0 % 09/25/24 12:54 Nucleated RBCs # 0.0 /100WBC 09/25/24 12:54 Sodium 131 mmol/L (136-145) L 09/25/24 09:46 Potassium 3.4 mmol/L (3.5-5.1) L 09/25/24 09:46 Chloride 96 mmol/L (98-107) L 09/25/24 09:46 Carbon Dioxide 20 mmol/L (22-29) L 09/25/24 09:46 Anion Gap 18.4 (5-19) 09/25/24 09:46 BUN 19 mg/dL (8-23) 09/25/24 09:46 Creatinine 0.7 mg/dL (0.5-0.9) 09/25/24 09:46 GFR Calculation Not Reportable 09/25/24 09:46 Glucose 122 mg/dL (65-115) H 09/25/24 09:46 Calculated Osmolality 276 mOsm/kg (285-295) L 09/25/24 09:46 Calcium 8.6 mg/dL (8.5-10.5) 09/25/24 09:46 Phosphorus 3.1 mg/dL (2.5-4.5) 09/24/24 14:37 Magnesium 2.2 mg/dL (1.7-2.3) 09/24/24 14:37 Total Bilirubin 0.8 mg/dL (0.15-1.2) 09/25/24 06:07 AST 101 U/L (0-32) H 09/25/24 06:07 ALT 85 U/L (0-33) H 09/25/24 06:07 Alkaline Phosphatase 115 U/L (35-105) H 09/25/24 06:07 Troponin T Baseline 18 ng/L (0-10) H 09/24/24 11:30 Troponin T 120 Minute 17.05 ng/L (0-10) H 09/24/24 13:16 Delta Troponin T -0.95 ABS# (0-10) L 09/24/24 13:16 Troponin T Hi Sens 6Hr 17.37 ng/L (0-10) H 09/24/24 18:01 Troponin T Hi Sens 6Hr Delta -0.63 ng/L (0-12) L 09/24/24 18:01 NT-Pro-B Natriuret Pep 269 pg/mL (0-450) 09/24/24 14:37 Total Protein 6.5 g/dL (6.6-8.7) L D 09/25/24 06:07 Albumin 3.6 g/dL (3.5-5.2) 09/25/24 06:07 Globulin 2.9 g/dL (1.3-4.6) 09/25/24 06:07 Lipase 59 U/L (13-60) 09/24/24 12:18 Procalcitonin 0.28 ng/mL (0-0.5) 09/24/24 14:37 TSH 0.80 uIU/mL (0.27-4.20) 09/24/24 14:37 Urine Color Yellow (Yellow) 09/24/24 13:04 Urine Appearance Clear (CLEAR) 09/24/24 13:04 Urine pH 6.0 (5-7) 09/24/24 13:04 Ur Specific [place] 1.017 (1.005-1.030) 09/24/24 13:04 Urine Protein 1+ (Negative) A 09/24/24 13:04 Urine Glucose (UA) Negative (Normal) 09/24/24 13:04 Urine Ketones Negative (Negative) 09/24/24 13:04 Urine Blood Negative (Negative) 09/24/24 13:04 Urine Nitrate Negative (Negative) 09/24/24 13:04 Urine Bilirubin Negative (Negative) 09/24/24 13:04 Urine Urobilinogen 1.0 mg/dL (Negative) 09/24/24 13:04 Ur Leukocyte Esterase Negative (Negative) 09/24/24 13:04 Urine RBC 0-2 /hpf (0-2) 09/24/24 13:04 Urine WBC 0-5 /hpf (0-5) 09/24/24 13:04 Ur Squamous Epith Cells 6-10 /hpf (0-5) 09/24/24 13:04 Amorphous Sediment Not Reportable 09/24/24 13:04 Urine Bacteria None seen /hpf (NONE) 09/24/24 13:04 Hyaline Casts 7.42 /lpf 09/24/24 13:04 Fine Granular Casts 0-4 /lpf H 09/24/24 13:04 Ur Random Sodium < 10 mmol/L 09/24/24 13:04 Vitals Last Vital Signs Temp 97.9 F 09/25/24 11:31 Pulse 56 L 09/25/24 11:31 Resp 16 09/25/24 11:31 BP 117/66 09/25/24 11:31 Pulse Ox 96 09/25/24 11:31 O2 Del Method Room Air 09/25/24 11:31 Discharge Plan Discharge Patient Disposition: Home Condition: Stable Prescriptions: Continued benzonatate 100 mg capsule 100 mg PO BID PRN (Reason: cough) 10 Days Qty: 20 0RF metoprolol tartrate 50 mg tablet 25 mg PO BID Patient Comments: pt decreasing to 1/2 tab two times daily starting 10/14 tramadol 50 mg tablet 50 mg PO BID 30 Days Qty: 60 0RF acetaminophen 500 mg Tablet 1,000 mg PO Q6H PRN (Reason: Pain) pravastatin 40 mg tablet 40 mg PO QPM Rx Instructions: TAKE 1 TABLET BY MOUTH ONCE DAILY IN THE EVENING potassium chloride [Klor-Con M20] 20 mEq tablet,ER particles/crystals 20 meq PO BID Rx Instructions: Take 1 tablet by mouth twice daily amiodarone 200 mg tablet 200 mg PO DAILY Rx Instructions: 2 TAKE TABS BY MOUTH 2x DAILY FOR 7 DAYS;THEN TAKE 1 TAB BY MOUTH X2 DAILY FOR 7 DAYS, THEN TAKE 1 TAB BY MOUTH DAILY; Xarelto 20 mg tablet 20 mg PO QAM Rx Instructions: TAKE ONE TABLET BY MOUTH EVERY MORNING for 90 DAYS Held furosemide 20 mg tablet See Rx Instructions .ROUTE .COMPLEX Qty: 90 0RF Hold Instructions: may resume in 72 hours Dose Instruction: TAKE 1/2 TO 1 (ONE-HALF TO ONE) TABLET BY MOUTH ONCE DAILY Rx Instructions: TAKE 1/2 TO 1 (ONE-HALF TO ONE) TABLET BY MOUTH ONCE DAILY triamterene-hydrochlorothiazid 37.5-25 mg tablet 1 tab PO DAILY Hold Instructions: see pcp Rx Instructions: Take 1 tablet by mouth once daily Discontinued amoxicillin-pot clavulanate 875-125 mg tablet 1 tab PO BID 10 Days Qty: 20 0RF No Action pantoprazole 20 mg tablet,delayed release (DR/EC) See Rx Instructions .ROUTE .COMPLEX Qty: 90 0RF Dose Instruction: TAKE 1 TABLET BY MOUTH ONCE DAILY IN THE MORNING ON AN EMPTY STOMACH Rx Instructions: TAKE 1 TABLET BY MOUTH ONCE DAILY IN THE MORNING ON AN EMPTY STOMACH Discharge Orders: Discharge Order (Routine); Ordered 09/25/24 Ordered By: Nani Dean Other Ambulatory Orders: Basic Metabolic Panel (Routine) Timeframe: 4 Days Facility: [facility] - Location: Lab - Main Lab Ordered By: Nani Dean Referrals: Remberto Roberson FNP [Primary Care Provider] - 10/03/24 10:00 am Discharge Diet: GI Soft Discharge Activity: Resume usual activity Patient Instructions: Gastroenteritis (DC) Activity Restrictions/Additional Instructions: Advance diet as tolerated. Discharge Attestations Time Spent in Discharge Care*: less than 30 min Quality Metrics Clinical Quality Measures [ No reported AMI, CVA or VTE this stay] Coding Level of Care Code Acute Code for Chg Fwd
[2024-09-25 14:40] VITALS: BP 117/66; PULSE 56; RESP 16; TEMP 36.6; O2SAT 96
--- NOTE | 2024-09-25 14:41 | PC.NURSE ---
Discharge Note Patient discharged to home via private vehicle accompanied by . Discharge instructions reviewed with patient and/or special service representative. Mobile pharmacy medications and/or prescriptions provided. Belongings/home medications returned.
[2024-09-27 15:45] LABS: Osmolality Serum 293 mOsm/kg (278-305)
[2024-09-27 15:45] LABS: Osmolality Urine 518 mOsm/kg (50-1200)
== END 2024-09-25 15:12 | disposition home or self-care (01) ==
LOC: ER 13:58 → ER IP 15:25 → MEDSURG 16:01
PROVIDERS: Admitting Provider Internal Medicine; Emergency Provider Family Medicine; PCP Registered Nurse; Visit Provider Internal Medicine
DX: E86.0 Dehydration (principal); E87.6 Hypokalemia; I10 Essential (primary) hypertension; Z79.01 Long term (current) use of anticoagulants; R09.82 Postnasal drip; K21.9 Gastro-esophageal reflux disease without esophagitis; Z86.79 Personal history of other diseases of the circulatory system; Z82.49 Family history of ischemic heart disease and other diseases of the circulatory system; R11.2 Nausea with vomiting, unspecified
CPT/HCPCS: 36415; 71045; 74176; 80048; 80053; 81001; 83690; 83735; 83880; 83930; 83935; 84100; 84145; 84300; 84443; 84484; 85025; 93005; 96365; 96372; 99285; G0378; J1644; J7030; J9999

== ENCOUNTER → 2024-10-02 11:33 | Outpatient (BNVA) | payer MEDICARE, OTHER, SELFPAY | PROVIDERS: PCP Registered Nurse; Visit Provider Registered Nurse | DX: E86.0 Dehydration (principal) | CPT/HCPCS: 80048; 85025 ==

== ENCOUNTER → 2024-10-05 08:44 | Outpatient (BNVA) | payer MEDICARE, OTHER, SELFPAY | PROVIDERS: PCP Registered Nurse; Visit Provider Orthopaedic Surgery | DX: M25.552 Pain in left hip (principal) | CPT/HCPCS: 20610; 73502; 99214; J3301; J3490; J9999 ==

== ENCOUNTER → 2024-10-09 10:39 | Outpatient (BNVA) | payer MEDICARE, OTHER, SELFPAY | PROVIDERS: PCP Registered Nurse; Visit Provider Registered Nurse | DX: E87.1 Hypo-osmolality and hyponatremia (principal); E87.6 Hypokalemia | CPT/HCPCS: 80048 ==

== ENCOUNTER → 2024-10-17 09:21 | Outpatient (BNVA) | payer MEDICARE, OTHER, SELFPAY | PROVIDERS: PCP Registered Nurse; Visit Provider Registered Nurse | DX: I10 Essential (primary) hypertension (principal) | CPT/HCPCS: 85025 ==

== ENCOUNTER → 2024-10-19 08:23 | Outpatient (BNVA) | payer MEDICARE, OTHER, SELFPAY | PROVIDERS: PCP Registered Nurse; Visit Provider Orthopaedic Surgery | DX: M25.552 Pain in left hip (principal); G89.29 Other chronic pain | CPT/HCPCS: 99213 ==

== ENCOUNTER → 2024-11-01 11:10 | Outpatient (BNVA) | payer MEDICARE, OTHER, SELFPAY | PROVIDERS: PCP Registered Nurse; Visit Provider Registered Nurse | DX: E11.9 Type 2 diabetes mellitus without complications (principal); Z79.899 Other long term (current) drug therapy; M81.0 Age-related osteoporosis without current pathological fracture | CPT/HCPCS: 80053; 80061; 83036; 85025 ==

== ENCOUNTER 2024-11-06 08:36 | Outpatient (CLI) | payer MEDICARE, OTHER, SELFPAY ==
--- NOTE | 2024-11-06 09:00 | MM_ITS ---
WS: [id number] BILATERAL 3D TOMOSYNTHESIS DIGITAL SCREENING MAMMOGRAPHY WITH CAD CLINICAL INFORMATION: Z12.39 - Encounter for other screening for malignant neop... HISTORY: Screening mammogram. No current complaints. COMPARISON: 2023 TECHNIQUE: Bilateral CC and MLO views. FINDINGS: The breasts are composed of heterogeneous fibroglandular density tissue, which can limit the detection of small underlying mass lesions. No suspicious mass, asymmetry, calcifications, or architectural distortion. No evidence of malignancy. Punctate and coarse calcifications upper outer LEFT breast. Vascular calcifications. MM/MM [facility] tomosynthesis [id number] IMPRESSION: DENSITY: The breasts are heterogeneously dense, which may obscure small masses. BI-RADS: 2 - Benign FOLLOW UP: 1 Year Follow-up Recommend return to annual screening mammography.
== END 2024-11-06 08:37 | disposition home or self-care (01) ==
PROVIDERS: PCP Registered Nurse; Visit Provider Registered Nurse
DX: Z12.31 Encounter for screening mammogram for malignant neoplasm of breast (principal); R92.333 Mammographic heterogeneous density, bilateral breasts; R92.1 Mammographic calcification found on diagnostic imaging of breast
CPT/HCPCS: 77063; 77067

== ENCOUNTER → 2024-11-22 10:39 | Outpatient (BNVA) | payer MEDICARE, OTHER, SELFPAY | PROVIDERS: PCP Registered Nurse; Visit Provider Nurse Practitioner Family | DX: I48.91 Unspecified atrial fibrillation (principal); I11.0 Hypertensive heart disease with heart failure; I50.31 Acute diastolic (congestive) heart failure; E78.5 Hyperlipidemia, unspecified; I83.893 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 complications; Z87.891 Personal history of nicotine dependence; Z79.01 Long term (current) use of anticoagulants | CPT/HCPCS: 99213 ==

== ENCOUNTER 2024-12-11 09:51 | Outpatient (CLI) | payer MEDICARE, OTHER, SELFPAY ==
--- NOTE | 2024-12-11 09:57 | XR_ITS ---
WS: [id number] XR lumbar spine 2-3V* [id number] REASON FOR EXAM: M54.50 - Low back pain, unspecified FINDINGS: Posterior decompression with pedicle screw placement L1-S1. Oblique pelvic screws at S2. Interconnecting rods L1-S2. Surgical appliances are intact and in proper position and alignment unchanged compared to 07/24/2024. Since the previous examination there has been vertebroplasty involving the anterior superior portion of T12 at site of compression fracture. Remainder of the lumbar spine is unchanged compared to the previous examination. XR/XR lumbar spine 2-3V* [id number] IMPRESSION: Stable posterior lumbar fusion. Interval vertebroplasty of T12 compression fracture.
== END 2024-12-11 09:52 | disposition home or self-care (01) ==
PROVIDERS: PCP Registered Nurse; Visit Provider Registered Nurse
DX: M54.50 Low back pain, unspecified (principal); Z98.1 Arthrodesis status; Z98.890 Other specified postprocedural states
CPT/HCPCS: 72100

== ENCOUNTER → 2025-01-01 08:27 | Outpatient (BNVA) | payer MEDICARE, OTHER, SELFPAY | PROVIDERS: PCP Registered Nurse; Visit Provider Orthopaedic Surgery | DX: Z98.1 Arthrodesis status (principal); M51.369 Other intervertebral disc degeneration, lumbar region without mention of lumbar back pain or lower extremity pain; M25.78 Osteophyte, vertebrae; M51.379 Other intervertebral disc degeneration, lumbosacral region without mention of lumbar back pain or lower extremity pain; M54.9 Dorsalgia, unspecified | CPT/HCPCS: 72100; 99213 ==

== ENCOUNTER 2025-01-15 09:14 | Outpatient (CLI) | payer MEDICARE, OTHER, SELFPAY ==
[2025-01-15 10:17] LABS: Hematocrit 27.9 % (36-47); Hemoglobin 8.00 g/dL (11.27-16.99); Mean Corpuscular HGB Conc 28.7 g/dL (30-55); Mean Corpuscular Hemoglobin 23.1 pg (27-33); Mean Corpuscular Volume 80.4 fl (85-98); Nucleated Red Blood Cells % 0 %; Platelet Count 297 10^3/cmm (157-399); Red Blood Count 3.47 10^6/uL (3.85-5.65); White Blood Count 5.35 10^3/uL (3.29-11.43)
[2025-01-15 10:43] LABS: Iron 19 ug/dL (37-145); Total Iron Binding Capacity 452 mcg/dl; Unsaturated Iron Binding 433 ug/dL (112-347)
[2025-01-15 10:57] LABS: Vitamin B12 787 pg/mL (232-1245)
== END 2025-01-15 09:15 | disposition home or self-care (01) ==
LOC: LAB 09:17
PROVIDERS: PCP Registered Nurse; Visit Provider Registered Nurse
DX: I10 Essential (primary) hypertension (principal); E53.8 Deficiency of other specified B group vitamins; D50.9 Iron deficiency anemia, unspecified
CPT/HCPCS: 36415; 82607; 83540; 83550; 85025

== ENCOUNTER 2025-01-15 10:26 | Outpatient (CLI) | payer MEDICARE, OTHER, SELFPAY ==
--- NOTE | 2025-01-15 11:00 | MR_ITS ---
WS: [id number] MRI THORACIC SPINE WITHOUT CONTRAST TECHNIQUE: Sagittal T1, T2 and STIR imaging. Axial T2 imaging. Noncontrast imaging obtained. CLINICAL INFORMATION: thorqacic pain FINDINGS: Mild thoracic curve. Mild thoracic kyphosis. No acute compression fractures. Cord signal appears normal. Mild to moderate central canal stenosis in the cervical spine on the catering staff member imaging at C4-C6. Chronic anterior wedging at T12 with prior anterior vertebroplasty changes Mild central canal stenosis T11-T12. Moderate facet arthropathy at this level with small facet effusions. Moderate bilateral T11-T12 foraminal narrowing. Mild narrowing of the thecal sac T3 and T4 due to prominent epidural fat Anterior hypertrophic changes thoracic spine. Small esophageal hiatal hernia. MR/MR thoracic spin wo con* [id number] IMPRESSION: 1. Mild thoracic curve. Mild thoracic kyphosis. No acute compression fractures . 2. Mild central canal stenosis T11-T12 due to disc bulging with facet arthropa thy. Moderate bilateral T11-T12 foraminal narrowing. 3. Prior vertebroplasty changes at T12. 4. Mild narrowing of the thecal sac at T3 and T4 due to prominent epidural fat . 5. Small RIGHT greater than LEFT pleural effusions partially visualized.
--- NOTE | 2025-01-15 11:45 | MR_ITS ---
WS: [id number] MRI LUMBAR SPINE NONCONTRAST TECHNIQUE: Sagittal T1, T2 and STIR imaging. Axial T1 and T2 imaging. CLINICAL INFORMATION: lumbar pain COMPARISON: MRI 06/11/2024 FINDINGS: Some images are limited due to extensive hardware Mild lumbar curve. No acute compression. Images are degraded due to beam hardening artifact from extensive dorsal fusion hardware. Pedicle screw fixation interconnecting rods and bilateral sacroiliac fixation screws. Pedicle screw fixation L1-S1. L1-L2: Moderate facet arthropathy. L2-L3: Slight retrolisthesis. Endplate ridging with mild central canal stenosis. Narrowing of the subarticular recess. Moderate facet arthropathy. Moderate RIGHT foraminal narrowing. L3-L4: Retrolisthesis. Disc osteophyte complex with moderate central canal stenosis. Impingement of the subarticular recess bilaterally. This appears slightly progressed compared to previous. Moderate LEFT greater than RIGHT foraminal narrowing. L4-L5: Disc osteophyte complex. Mild LEFT foraminal narrowing. Spinal canal appears patent. L5-S1: Disc desiccation with disc osteophyte ridging. Slight contact of the S1 nerve roots. Foramen are patent. Moderate facet arthropathy. Visualized pelvic bony structures: Normal. Paravertebral soft tissues: Normal. Adrenal glands are normal. Small LEFT renal cyst. MR/MR lumbar spine wo con* [id number] IMPRESSION: Some images degraded due to beam hardening artifact from extensive posterior fusion. 1. Mild central canal stenosis T11-T12 with moderate facet arthropathy and sma ll facet effusions. Moderate bilateral foraminal narrowing at this level. 2. Prior anterior vertebroplasty changes at T12. 3. Mild central canal stenosis L2-3 with impingement on the subarticular reces s bilaterally. This appears slightly progressed. 4. Moderate central canal stenosis L3-4 with impingement on the subarticular r ecess bilaterally. This also appears slightly progressed 5. Moderate RIGHT L2-3 and LEFT greater than RIGHT L3-4 foraminal narrowing. 6. Disc osteophyte complex L5-S1 with slight contact of the S1 nerve roots sim ilar to previous.
== END 2025-01-15 10:27 | disposition home or self-care (01) ==
LOC: RAD 10:27
PROVIDERS: PCP Registered Nurse; Visit Provider Orthopaedic Surgery
DX: M51.360 Other intervertebral disc degeneration, lumbar region with discogenic back pain only (principal); M51.370 Other intervertebral disc degeneration, lumbosacral region with discogenic back pain only; M48.04 Spinal stenosis, thoracic region; M47.814 Spondylosis without myelopathy or radiculopathy, thoracic region; M48.062 Spinal stenosis, lumbar region with neurogenic claudication; M25.78 Osteophyte, vertebrae; Z98.1 Arthrodesis status
CPT/HCPCS: 72146; 72148

== ENCOUNTER → 2025-01-17 08:16 | Outpatient (BNVA) | payer MEDICARE, OTHER, SELFPAY | PROVIDERS: PCP Registered Nurse; Visit Provider Orthopaedic Surgery | DX: Z01.818 Encounter for other preprocedural examination (principal); Z79.899 Other long term (current) drug therapy; Z09 Encounter for follow-up examination after completed treatment for conditions other than malignant neoplasm | CPT/HCPCS: 36415; 80053; 81001; 83036; 85025; 99214 ==

== ENCOUNTER 2025-01-23 08:13 | Outpatient (CLI) | payer MEDICARE, OTHER, SELFPAY ==
[2025-01-23 08:55] LABS: Hematocrit 34.3 % (36-47); Hemoglobin 10.50 g/dL (11.27-16.99); Mean Corpuscular HGB Conc 30.6 g/dL (30-55); Mean Corpuscular Hemoglobin 25.1 pg (27-33); Mean Corpuscular Volume 81.9 fl (85-98); Nucleated Red Blood Cells % 0 %; Platelet Count 292 10^3/cmm (157-399); Red Blood Count 4.19 10^6/uL (3.85-5.65); White Blood Count 5.53 10^3/uL (3.29-11.43)
[2025-01-23 09:19] LABS: Alanine Aminotransferase 26 U/L (0-33); Albumin Level 4.0 g/dL (3.5-5.2); Alkaline Phosphatase 117 U/L (35-105); Anion Gap 18.2 (5-19); Aspartate Amino Transferase 41 U/L (0-32); Blood Urea Nitrogen 18 mg/dL (8-23); Calcium 8.8 mg/dL (8.5-10.5); Carbon Dioxide 21 mmol/L (22-29); Chloride 106 mmol/L (98-107); Globulin 3.0 g/dL (1.3-4.6); Glucose 102 mg/dL (65-115); Iron 132 ug/dL (37-145); Osmolality Calculated 294 mOsm/kg (285-295); Potassium 4.2 mmol/L (3.5-5.1); Sodium 141 mmol/L (136-145); Total Protein 7.0 g/dL (6.6-8.7)
== END 2025-01-23 08:14 | disposition home or self-care (01) ==
PROVIDERS: PCP Registered Nurse; Visit Provider Orthopaedic Surgery
DX: Z01.818 Encounter for other preprocedural examination (principal); D50.9 Iron deficiency anemia, unspecified
CPT/HCPCS: 36415; 80053; 83540; 85025

== ENCOUNTER → 2025-01-25 11:57 | Outpatient (BNVA) | payer MEDICARE, OTHER, SELFPAY | PROVIDERS: PCP Registered Nurse; Visit Provider Family Medicine | DX: Z01.818 Encounter for other preprocedural examination (principal) | CPT/HCPCS: 81003 ==

== ENCOUNTER 2025-01-28 08:30 | Oncology outpatient (recurring) (ONCR) | payer MEDICARE, OTHER, SELFPAY ==
[2025-01-22] VITALS (11 sets, daily range): BP systolic 99–136; BP diastolic 53–74; PULSE 51–56; RESP 16–18; TEMP 36.1–36.6; O2SAT 92–98
[2025-01-22 08:31] LABS: Hematocrit 26.9 % (36-47); Hemoglobin 7.90 g/dL (11.27-16.99); Mean Corpuscular HGB Conc 29.4 g/dL (30-55); Mean Corpuscular Hemoglobin 23.9 pg (27-33); Mean Corpuscular Volume 81.5 fl (85-98); Nucleated Red Blood Cells % 0 %; Platelet Count 297 10^3/cmm (157-399); Red Blood Count 3.30 10^6/uL (3.85-5.65); White Blood Count 6.00 10^3/uL (3.29-11.43)
[2025-01-28 09:00] LABS: Hematocrit 36.3 % (36-47); Hemoglobin 10.70 g/dL (11.27-16.99)
== END 2025-02-07 23:59 | disposition home or self-care (01) ==
PROVIDERS: PCP Registered Nurse; Visit Provider Registered Nurse
DX: D50.9 Iron deficiency anemia, unspecified (principal); Z53.9 Procedure and treatment not carried out, unspecified reason
CPT/HCPCS: 36430; 85014; 85018; 85025; 86850; 86900; 86920; J7050; P9016

== ENCOUNTER 2025-01-30 12:13 | Inpatient (IN) | payer MEDICARE, OTHER, SELFPAY ==
[2025-01-30] VITALS (11 sets, daily range): BP systolic 118–154; BP diastolic 57–73; PULSE 50–79; RESP 12–17; TEMP 36.1–36.4; O2SAT 91–99; BMI 32.5
--- NOTE | 2025-01-30 07:35 | ANES.PREANE2 ---
Pre-Anesthetic Assessment Height/Weight: Height 1.68 m Weight 91.626 kg Temp Pulse Resp BP Pulse Ox O2 Del Method 97.2 F L 57 L 17 154/69 94 Room Air 01/30/25 06:34 01/30/25 06:34 01/30/25 06:34 01/30/25 06:34 01/30/25 06:34 01/30/25 06:36 Preop Diagnosis: Painful orthopedic hardware Operation Date: 01/30/25 08:00 Proposed Procedures p Hardware Removal Iliac Screw(Bilateral) - Vasquez Sosa, DO Familial anesthetic complications: None Was Beta Jarred taken within 24 hours: Yes Was Clonidine taken within 24 hours: N/A Last intake: Intake Last Liquid Date 01/29/25 Last Liquid Time 21:00 Last Solid Date 01/29/25 Last Solid Time 17:00 Social No alcohol and No tobacco Exam alert, oriented x 3, clear to auscultation bilaterally and regular rate & rhythm Airway Mallampati: Class I Dentition: full CV/HEM Atrial Fibrillation, Congestive Heart Failure and Hypertension Metabolic Diabetes Mellitus Neuropsych Transient Ischemic Attack Anesthetic Plan ASA status: 3 Anesthesia: General Risk of > 500 ml blood loss (7ml/kg in children): No Medications/Allergies Home Medications ?Medication ?Instructions ?Recorded ?Confirmed ?Last Taken ?Type tramadol 50 mg tablet 50 mg PO DAILY pain 30 days #30 10/24/24 01/29/25 01/29/25 Rx tabs metoprolol tartrate 50 mg tablet 50 mg PO ONCE 11/22/24 01/29/25 01/29/25 History pravastatin 40 mg tablet 40 mg PO QPM #90 tabs 12/10/24 01/29/25 01/29/25 Rx ferrous sulfate 325 mg (65 mg 325 mg PO BID 01/25/25 01/29/25 01/29/25 History iron) tablet (FeroSul) ibuprofen 600 mg tablet (IBU) 600 mg PO Q8H PRN Pain 01/25/25 01/29/25 01/25/25 History rivaroxaban 2.5 mg tablet (Xarelto) 2.5 mg PO DAILY 01/25/25 01/29/25 01/27/25 History furosemide 20 mg tablet 20 mg PO DAILY 01/29/25 01/29/25 01/29/25 History pantoprazole 20 mg tablet,delayed 20 mg PO DAILY 01/29/25 01/30/25 01/30/25 History release potassium chloride 20 mEq 20 meq PO BID 01/29/25 01/29/25 01/29/25 History tablet,extended release(part/cryst) (Klor-Con M) amiodarone 200 mg tablet 200 mg PO DAILY 01/30/25 01/30/25 01/30/25 History Allergies Allergy/AdvReac Type Severity Reaction Status Date / Time verapamil AdvReac Intermediate Unknown Verified 01/30/25 06:26 meperidine (From Demerol) AdvReac Mild Nausea,vomi Verified 01/30/25 06:26 ting diltiazem (From Cardizem) AdvReac Unknown Verified 01/30/25 06:26 Current Medications Generic Name Dose Route Start Last Admin Trade Name Freq PRN Reason Stop Dose Admin Sodium Chloride 1,000 mls @ 30 mls/hr 01/30/25 06:30 01/30/25 06:43 Sodium Chloride 0.9% IV 01/31/25 06:29 30 mls/hr .Q24H TRUDY Administration PFSH Anesthesia Medical History Hip pain, chronic Schatzki's ring History of fracture of left hip 1977 (no surgery) History of fractured pelvis 1977 Postmenopausal osteoporosis Screening mammogram, encounter for Contact dermatitis due to plant Right-sided low back pain with sciatica Enrolled in chronic care management GERD (gastroesophageal reflux disease) 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 complications Atrial fibrillation Surgical History History of tonsillectomy H/O tubal ligation History of cataract surgery 2009 Family History Sister Cancer Mother Hypertension Heart failure CAD (coronary artery disease) Father Stroke Grandmother CAD (coronary artery disease) Family/Other CAD (coronary artery disease) Diabetes Suicide Social History Smoking and tobacco/nicotine status: former use of tobacco/nicotine Alcohol intake: current Alcohol intake frequency: 0-2 Drinks per Day Substance/Drug Use: never Lives independently: Yes Marital status: Current occupational status: retired Do you think of yourself as: Straight/Heterosexual Current gender identity: Female Data Anesthesia Cardiac Studies: Echocardiogram 11/17/22 Sestamibi Stress Test (Cardiology) 11/19/22
--- NOTE | 2025-01-30 07:41 | W.PM.OPSUD ---
Surgery/Procedure H&P Update DATE OF PROCEDURE: January 30, 2025 DATE H&P PERFORMED: 01/17/25 H&P UPDATE INFORMATION: I have reviewed H&P completed within last 30 days, I have examined patient prior to procedure and No changes to prior documentation PREOP DIAGNOSIS: Painful orthopedic hardware PLANNED PROCEDURE: Operation Date: 01/30/25 08:00 Proposed Procedures p Hardware Removal Iliac Screw(Bilateral) - Vasquez Sosa DO
[2025-01-30] MEDS: ceFAZolin 2,000 mg SDV 2000 MG IVP (08:00)
[2025-01-30] MEDS: lidocaine-epi 1% 20 mL INJ 10 ML INJECTION (08:30)
--- NOTE | 2025-01-30 09:08 | P.DS_ITS ---
Discharge Providers Date of Discharge: January 30, 2025 Attending Provider at Discharge: Vasquez Sosa DO Primary Care Provider: LYNETTE Robert Reason for Visit Reason for Visit: T84.84XA Discharge Data Studies Completed and Pending Pending at discharge Category Date Time Status C-arm Fluoroscopy 88088 Routine Exams 01/30/25 06:16 Ordered Vitals Last Vital Signs Temp 97.2 F L 01/30/25 06:34 Pulse 57 L 01/30/25 06:34 Resp 17 01/30/25 06:34 BP 154/69 01/30/25 06:34 Pulse Ox 94 01/30/25 06:34 O2 Del Method Room Air 01/30/25 06:36 Discharge Plan Discharge Patient Disposition: Home Condition: Stable Prescriptions: Continued ferrous sulfate [FeroSul] 325 mg (65 mg iron) tablet 325 mg PO BID metoprolol tartrate 50 mg tablet 50 mg PO ONCE Patient Comments: pt decreasing to 1/2 tab two times daily starting 10/14 pravastatin 40 mg tablet 40 mg PO QPM Qty: 90 0RF Rx Instructions: TAKE 1 TABLET BY MOUTH ONCE DAILY IN THE EVENING pantoprazole 20 mg tablet,delayed release (DR/EC) 20 mg PO DAILY Rx Instructions: TAKE 1 TABLET BY MOUTH ONCE DAILY IN THE MORNING ON AN EMPTY STOMACH potassium chloride [Klor-Con M20] 20 mEq tablet,ER particles/crystals 20 meq PO BID Rx Instructions: Take 1 tablet by mouth twice daily furosemide 20 mg tablet 20 mg PO DAILY Rx Instructions: TAKE 1/2 TO 1 (ONE-HALF TO ONE) TABLET BY MOUTH ONCE DAILY amiodarone 200 mg tablet 200 mg PO DAILY Held ibuprofen [IBU] 600 mg tablet 600 mg PO Q8H PRN (Reason: Pain) Hold Instructions: Resume on 02/01/25. rivaroxaban [Xarelto] 2.5 mg tablet 2.5 mg PO DAILY Hold Instructions: Resume on 02/01/25. Discontinued tramadol 50 mg tablet 50 mg PO DAILY 30 Days Qty: 30 5RF Discharge Order = DC NOW: Discharge Order (Routine); Ordered 01/30/25 Ordered By: Vasquez Sosa Discharge Diet: Advance as tolerated Discharge Activity: Limit activity as instructed Patient Instructions: Acute Wound Care (DC), Post Anesthesia Care Activity Restrictions/Additional Instructions: Thank you for [facility] for your care! The following is a list of instructions, from your provider, to follow upon your discharge to ensure you have the optimal recovery from your recent injury orsurgery. Follow-up care is a gao part of your treatment and safety. Be sure to make and go to all appointments, and call your doctor if you are having problems. If you do not already have a follow-up appointment made, call Dr. Sosa office in the next 1-3 days to make follow up appointment for 2 weeks at [phone]. It is also a good idea to know your test results and keep a list of the medicines you take. Medications will be prescribed for you at your provider's discretion. These medications are to be used as instructed; if they are taken more often that prescribed they will not be refilled early and in most cases will not be refilled at all. > When a refill is needed,you should contact marilee tubbs 2-3 business days before your prescription runs out. Medications will NOT be refilled by director of it operations providers after hours! > Many pain medications contain Tylenol (Acetaminophen). Do not consume more than 4,000 mg of Tylenol per day in total with any combination ofmedications. > Pain medications can cause constipation. Please use an over the counter stool softener as directed, while taking pain medications. Consulty our local pharmacist with questions or recommendations on stool softeners. If constipation persists, contact our office or your primary care provider. > While under our care,you are not to receive pain medications or other controlled substances from any other provider unless our office is notified and approves. Any attempts to do so will result in refusal to prescribe any further pain medications and possible dismissal from our practice. ? Your wound and/or dressing should remain clean and dry for 2 days after surgery. On postoperative day 2 (48 hours after your surgery) the dressing (if present) should be removed and it is okay to shower and get the incision wet. Pad dry afterwards. No further dressing should be required from that point on. Do not put any creams or ointments on theincision > It is normal for there to be a small amount of discharge (bloody or blood tinged) present from a surgical wound for the first 1-3days. > The wound should be examined twice a day for signs of infection. Mild redness or bruising is to be expected but indications that an infection maybe starting would include; An increase in redness, swelling, or discharge, a foul odor present around the incision, and/or a fever greater than 101 ?F ? Showering is permitted, however we ask that you do not take a bath, sit in a whirlpool / Jacuzzi, or go swimming for 1 month. For only the first 2 days after surgery, lt wilt be necessary for you to cover your wound/dressing with plastic and tape to keep it dry. ? Walking is essential for the healing process after surgery. We would like you to slowly advance your walking. This should be done on relatively flat clear ground (inside or out) or can be done on a treadmill. Remember this goal does not have to happen all at once, slowly increase your distance and duration. This can be broken into more more than one walk per day as tolerated. Patients who walk as directed after surgery rarely require Physical Therapy. In the unlikely event this issue arises your provider will direct hospital staff to make the appropriate arrangements. ? No lifting over 5 pounds {a gallon of milk) or bending/twisting until further notice. Each of these activities places an unnecessary amount of stress onto the body and can impede the delicate healing process. > Instead of bending at the waist, keep your back straight and bend at the knees. > Instead of twisting your torso, keep your back straight and turn your entire body with your feet. ? You may sleep in any position which makes you comfortable. Many patients find comfort sleeping in a reclining chair. It is not abnormal to have difficulty sleeping for the first several weeks following your surgery. We recommend trying Benadry! or Tylenol PM as directed to help with your sleeping difficulties. Both medications are over the counter and available withoutprescription. ? NO SMOKING!!! Smoking dramatically increases the probability of developing postoperative wound infections. ? Common complaints after lumbar and/or thoracic spine surgery include, but are not limited to: numbness and/or tingling in the legs, pain around the incision and surrounding tissues, muscle spasms, or stiffness of the middle to low back. Contact our office if these symptoms persist or if an acute change occurs. ? No driving for the first 3-5days, and not while taking narcotics until seen at your follow-up appointment and cleared. There are no restrictions for riding on short trips, however if you take a longer trip, arrangements should be made to make regular stops to get out of the vehicle and stretch . ? Swelling is an unfortunate event that will take place with any surgery and is the primary source of your postoperative discomfort. While walking and regular approved activities helps control inflammation, there are additional steps you can take to minimizeswelling. > Place ice over the surgical site and surrounding tissue for twenty minutes, followed by applying a low/medium heat (heating pad) for an additional twenty minutes every 1-2 hours as needed for painrelief. > You may use of over the counter anti-inflammatory medications (Ibuprofen, Motrin, Aleve, Advil, etc) as directed on the package label. These types of medicines wm significantly reduce the amount of discomfort you experience after surgery from swelling. It should be noted that if you have and allergy to any of these medications, or a history of ulcers or kidney disease you should consult you primary care provider prior to starting these medications. Print Language: Icelandic Discharge Attestations Time Spent in Discharge Care*: less than 30 min Quality Metrics Clinical Quality Measures [ No reported AMI, CVA or VTE this stay] Coding Level of Care Code Acute Code for Chg Lis
--- NOTE | 2025-01-30 09:09 | PM.OP ---
Operative Report Date of procedure: January 30, 2025 Pre-op diagnosis: Painful orthopedic hardware in spine Post-op diagnosis: same Procedure done: Removal of deep hardware from spine/ pelvis Surgeon: Vasquez Sosa DO Estimated blood loss (mL): 20 Procedure: Removal of deep hardware from spine/ pelvis Patient is brought to the op suite after undergoing anesthesia was placed in the prone position. All areas of impingement were well-padded. Patient's prepped and draped normal sterile fashion. Skin incision is made over the previous incision distally. A Wiltsie approach was used through the fascia on both the right and left side. Is dissected down to the screw. Screw Was removed this was done bilaterally. And then the tracy was cut bilaterally. And then the tracy was removed. This was done bilaterally. And then the screw was backed out and removed from the iliac crest bilaterally. Wounds were irrigated the vancomycin powder was placed deep fascia was closed with 0 Vicryl skin was closed with 2-0 Vicryl and Monocryl suture. Sterile dressings were applied and patient was transferred to the PACU in stable condition.
--- NOTE | 2025-01-30 13:25 | ANE.PACU2 ---
Inpatient post-anesthesia follow up: Airway intact: Yes Vital signs: Temperature 97.5 F Pulse Rate 55 Respiratory Rate 17 Blood Pressure 152/64 Pulse Oximetry 95 Oxygen Delivery Me thod Room Air Oxygen Flow Rate 2 Fraction of Inspir ed Oxygen Hydration adequate: Yes Nausea and vomiting: No Pain level: 1 Mental status: Baseline
--- NOTE | 2025-01-30 16:58 | XR_ITS ---
WS: [id number] Lumbar spine, C-arm fluoroscopy images, 01/30/2025 Clinical Data: YUNI PICS Comparison: Lumbar spine, 01/01/2025 Findings: Dr. Sosa removed the SI joint fusion screws XR/XR lumbar spine 2-3V* [id number] Impression: Removal of SI joint fusion screws.
== END 2025-01-30 12:14 | disposition home or self-care (01) | DRG 497 ==
LOC: MS 2A 12:13
PROVIDERS: Admitting Provider Orthopaedic Surgery; PCP Registered Nurse; Visit Provider Orthopaedic Surgery
PROC: 0QP104Z Removal of Internal Fixation Device from Sacrum, Open Approach (ICD-10-PCS; principal; 2025-01-30 08:00)
DX: T84.84XA Pain due to internal orthopedic prosthetic devices, implants and grafts, initial encounter (principal); Y83.4 Other reconstructive surgery as the cause of abnormal reaction of the patient, or of later complication, without mention of misadventure at the time of the procedure; I11.0 Hypertensive heart disease with heart failure; I50.9 Heart failure, unspecified; I48.91 Unspecified atrial fibrillation; K21.9 Gastro-esophageal reflux disease without esophagitis; Z86.73 Personal history of transient ischemic attack (TIA), and cerebral infarction without residual deficits; Z87.891 Personal history of nicotine dependence; Z79.01 Long term (current) use of anticoagulants
CPT/HCPCS: 72100; 76000; J0690; J1100; J2405; J2704; J3010; J3373; J3490; J7030; J9999

== ENCOUNTER → 2025-02-12 15:01 | Outpatient (BNVA) | payer MEDICARE, OTHER, SELFPAY | PROVIDERS: PCP Registered Nurse; Visit Provider Orthopaedic Surgery | DX: Z98.890 Other specified postprocedural states (principal); Z98.1 Arthrodesis status | CPT/HCPCS: 99024 ==

== ENCOUNTER → 2025-03-12 10:23 | Outpatient (BNVA) | payer MEDICARE, OTHER, SELFPAY | PROVIDERS: PCP Registered Nurse; Visit Provider Orthopaedic Surgery | DX: Z98.890 Other specified postprocedural states (principal); Z98.1 Arthrodesis status | CPT/HCPCS: 99024 ==

== ENCOUNTER → 2025-03-18 14:32 | Outpatient (BNVA) | payer MEDICARE, OTHER, SELFPAY | PROVIDERS: PCP Registered Nurse; Visit Provider Nurse Practitioner | DX: M16.12 Unilateral primary osteoarthritis, left hip (principal); M70.62 Trochanteric bursitis, left hip; G89.29 Other chronic pain | CPT/HCPCS: 20610; 73502; 99214; J1100; J2795; J3301; J9999 ==

== ENCOUNTER → 2025-04-29 14:14 | Outpatient (BNVA) | payer MEDICARE, OTHER, SELFPAY | PROVIDERS: PCP Registered Nurse; Visit Provider Nurse Practitioner | DX: M70.62 Trochanteric bursitis, left hip (principal); M16.12 Unilateral primary osteoarthritis, left hip | CPT/HCPCS: 99213 ==

== ENCOUNTER → 2025-06-10 08:47 | Outpatient (BNVA) | payer MEDICARE, OTHER, SELFPAY | PROVIDERS: PCP Registered Nurse; Visit Provider Nurse Practitioner | DX: M70.62 Trochanteric bursitis, left hip (principal); M16.12 Unilateral primary osteoarthritis, left hip; M76.32 Iliotibial band syndrome, left leg; M51.379 Other intervertebral disc degeneration, lumbosacral region without mention of lumbar back pain or lower extremity pain | CPT/HCPCS: 20610; 72100; 99214; J1100; J2795; J3301; J9999 ==

== ENCOUNTER 2025-06-16 12:01 | Emergency (ER) | payer MEDICARE, OTHER, SELFPAY ==
--- OUTSIDE RECORDS SUMMARY | 2025-06-16 12:07 | XMS_ITS | Encounter Summary ---
Author Organization [facility] Address [address] [place] [address] Care Team Providers Care Ed Physicians Name Role Phone LYNETTE Najera Sr., Michael Dave Primary Care Pro vider Encounter Details Date Type Department Care Team (Latest Contact Info) Description 07/20/2002 Outpatient Historical [facility] [place] [address] [facility] [address] [place] [phone] Jose Nielsen DO NO ADDRESS ON FILE DIZZINESS AND GIDDINESS (Primary Dx); LABYRINTHITIS NOS Social History Tobacco Use Types Packs/Day Years Used Date Smoking Tobacco: Never Assessed Comments Unknown Sex and Gender Information Value Date Recorded Sex Assigned at Not on file 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
--- OUTSIDE RECORDS SUMMARY | 2025-06-16 12:07 | XMS_ITS | Encounter Summary ---
Author Organization [facility] Address [address] [place] [address] Care Team Providers Care Library Aide Name Role Phone LYNETTE Najera Sr., Michael Dave Primary Care Pro vider Encounter Details Date Type Department Care Team (Latest Contact Info) Description 08/27/2003 Outpatient Historical [facility] Medicine [place] [address] [facility] [address] [place] [address] Jose Nielsen DO NO ADDRESS ON FILE HYPERLIPIDEMIA NEC/NOS (Primary Dx) Social History Tobacco Use Types Packs/Day Years Used Date Smoking Tobacco: Never Assessed Comments Unknown Sex and Gender Information Value Date Recorded Sex Assigned at Not on file 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
--- OUTSIDE RECORDS SUMMARY | 2025-06-16 12:07 | XMS_ITS | Encounter Summary ---
Author Organization [facility] Address [address] [place] [address] Care Team Providers Care Trademark Attorney Name Role Phone LYNETTE Najera Sr., Sanjay Hickey Primary Care Pro vider Encounter Details Date Type Department Care Team (Latest Contact Info) Description 04/14/1998 Outpatient Historical [facility] Medicine [place] [address] [facility] [address] [place] [phone] Richard Medina MD [address] [facility] [address] [place] [phone] Open wound(s) (multiple) of unspecified site(s), without mention of complication (Primary Dx); Hypopotassemia Social History Tobacco Use Types Packs/Day Years Used Date Smoking Tobacco: Never Assessed Comments Unknown Sex and Gender Information Value Date Recorded Sex Assigned at Not on file 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
--- OUTSIDE RECORDS SUMMARY | 2025-06-16 12:07 | XMS_ITS | Encounter Summary ---
Author Organization [facility] Address [address] [facility] [place] [address] Care Team Providers Care Care Transition Mgr Name Role Phone Dania Gomez, Sanjay OJEDA Primary Care Pro vider Encounter Details Date Type Department Care Team (Late st Contact Info) Description 04/01/2015 Ancillary Orders [facility] [address] [place] [phone] Sanjay Najera Sr., FNP [address] [place] [address] Left hip pain (Primary Dx) Social History Tobacco Use Types Packs/Day Years Used Date Smoking Tobacco: Never Assessed Comments Unknown Sex and Gender Information Value Date Recorded Sex Assigned at Not on file 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 Femoral head and neck appear intact bone both projections. IMPRESSION normal left hip views Procedure Note Waldemar Fonseca MD - 04/01/2015 PROCEDURE XR LEFT HIP, 2 views, 01 April 2015 DESCRIPTION AP and Cleave's views of the left hip show no acute fracture, dislocation, or deformity. Femoral head and neck appear intact bone both projections. IMPRESSION normal left hip views us LYNETTE Muir Sr. DIAGNOSTIC IMAGIN G ORDERABLES Final Result documented in this encounter Visit Diagnoses Diagnosis Left hip pain- Primary Pain in joint, pelvic region and thigh Left hip pain Pain in joint, pelvic region and thigh documented in this encounter Care Teams Care Transition Mgr Relationship Specialty Start Date End Date Dania Gomez, LYNETTE Dele[address] [place] [address] PCP - General NURSE PRACTITIONER 04/01/15 documented as of this encounter
--- OUTSIDE RECORDS SUMMARY | 2025-06-16 12:07 | XMS_ITS | Encounter Summary ---
Author Organization [facility] Address [address] [place] [address] Care Team Providers Care Hedis Review Nurse Name Role Phone LYNETTE Najera Sr., Sanjay Hickey Primary Care Pro vider Encounter Details Date Type Department Care Team (Latest Contact Info) Description 07/30/2004 Outpatient Historical [facility] Medicine [place] [address] [facility] [address] [place] [phone] Alley Kumar FNP [address] [place] [address] OTHER MALAISE AND FATIGUE (Primary Dx); DIZZINESS AND GIDDINESS Social History Tobacco Use Types Packs/Day Years Used Date Smoking Tobacco: Never Assessed Comments Unknown Sex and Gender Information Value Date Recorded Sex Assigned at Not on file 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
--- OUTSIDE RECORDS SUMMARY | 2025-06-16 12:07 | XMS_ITS | Encounter Summary ---
Author Organization [facility] Address [address] [place] [address] Care Team Providers Care Office Support Name Role Phone LYNETTE Najera Sr., Sanjay Hickey Primary Care Pro vider Encounter Details Date Type Department Care Team (Late st Contact Info) Description 06/28/[address] 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
--- OUTSIDE RECORDS SUMMARY | 2025-06-16 12:07 | XMS_ITS | Encounter Summary ---
Author Organization [facility] Address [address] [place] [address] Care Team Providers Care School Bus Operator Name Role Phone LYNETTE Najera Sr., Michael Dave Primary Care Pro vider Encounter Details Date Type Department Care Team (Latest Contact Info) Description 06/28/2003 Outpatient Historical [facility] Medicine [place] [address] [facility] [address] [place] [address] Jose Nielsen DO NO ADDRESS ON FILE HYPERLIPIDEMIA NEC/NOS (Primary Dx) Social History Tobacco Use Types Packs/Day Years Used Date Smoking Tobacco: Never Assessed Comments Unknown Sex and Gender Information Value Date Recorded Sex Assigned at Not on file 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
--- OUTSIDE RECORDS SUMMARY | 2025-06-16 12:07 | XMS_ITS | Encounter Summary ---
Author Organization [facility] Address [address] [place] [address] Care Team Providers Care Ballaster Name Role Phone LYNETTE Najera Sr., Michael Dave Primary Care Pro vider Encounter Details Date Type Department Care Team (Latest Contact Info) Description 03/03/2004 Outpatient Historical [facility] Medicine [place] [address] [facility] [address] [place] [address] Jose Nielsen DO NO ADDRESS ON FILE HYPERLIPIDEMIA NEC/NOS (Primary Dx); DERMATOPHYTOSIS OF NAIL; Pain in limb Social History Tobacco Use Types Packs/Day Years Used Date Smoking Tobacco: Never Assessed Comments Unknown Sex and Gender Information Value Date Recorded Sex Assigned at Not on file 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
--- OUTSIDE RECORDS SUMMARY | 2025-06-16 12:07 | XMS_ITS | Clinical Summary ---
Author Organization [facility] Address [address] [place] [address] Phone Care Team Providers Care Straight Knife Machine Cutter Name Role Phone Dania Gomez, LYNETTE, Sanjay Hickey Primary Care Pro vider Allergies Active Allergy Reactions Criticality Noted Date Comments Meperidine Nausea and Vomiting Low 02/24/2016 Medications furosemide (LASIX) 20 mg tablet Take 10 mg by mouth daily. 2 Active omeprazole (PriLOSEC) 40 mg Capsule, Delayed Release(E.C.) Take 40 mg by mouth daily. Active potassium chloride (KLOR-CON) 20 mEq Extended Release tablet Take 20 mEq by mouth 2 times daily. 2 Active pravastatin (PRAVACHOL) 40 mg tablet Take 40 mg by mouth late in the day. Active triamterene-hydr oCHLOROthiazide (MAXZIDE 25) 37.5-25 mg tablet TAKE 1 TABLET BY MOUTH ONCE DAILY NEED APPOINTMENT BEFORE NEXT REFILL 2 Active zolpidem (AMBIEN) 5 mg tablet Take 5 mg by mouth daily at bedtime. 2 Active rivaroxaban (Xarelto) 20 mg Tablet Take 20 mg by mouth daily. Active aspirin (ECOTRIN EC) 81 mg Tablet, Delayed Release (E.C.) Take 81 mg by mouth daily. Active raNITIdine (ZANTAC) 150 mg tablet Take 150 mg by mouth 2 times daily. 6 Active triamterene-hydr oCHLOROthiazide (DYAZIDE) 37.5-25 mg capsule Take 1 Capsule by mouth daily early breastfeeding care specialist. 6 Active omeprazole (PriLOSEC) 40 mg Capsule, Delayed Release(E.C.) Take 40 mg by mouth daily. 6 Active pravastatin (PRAVACHOL) 40 mg tablet Take 40 mg by mouth Daily LATE. 6 Active metoprolol tartrate (LOPRESSOR) 50 mg tabletIndication s:Benign hypertension,Per sistent atrial fibrillation (CMS/HCC) Take 1 tablet by mouth twice daily 180 Tablet Active Active Problems No known active problems Encounters Date Type Department Care Team Description 05/09/2025 Refill [facility] [address] [place] [address] Do Zurita MD Benign hypertension; Persistent atrial fibrillation (CMS/HCC) from Last 3 Months Immunizations Immunization Administration Dates Next Due Influenza Seasonal Unspecified Formulation IM Social History Tobacco Use Types Packs/Day Years Used Date Smoking Tobacco: Never Alcohol Use Standard Drinks/Week Comments Yes 0 (1 standard drink = 0.6 oz pur e alcohol) Comments Unknown Sex and Gender Information Value Date Recorded Sex Assigned at Not on file 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 Gender Identity Not on file Sexual Orientation Not on file Last Filed Vital Signs Vital Sign Reading Time Taken Comments Blood Pressure 116/72 10/20/2021 10:26 AM CDT Pulse 94 10/20/2021 10:26 AM CDT Temperature 36.6 C (97.8 F) 02/24/2016 1:56 PM CDT Respiratory Rate 16 02/24/2016 1:56 PM CDT Oxygen Saturation - - Inhaled Oxygen Concentration - - Weight 102.3 kg (225 lb 9.6 oz) 022 10:26 AM CDT Height 167.6 cm (5' 6 ) 10/20/2021 10:2 6 AM CDT Body Mass Index 36.41 10/20/2021 10:26 AM CDT Plan of Treatment Health Maintenance Due Date Last Done Comments DTAP/TDAP/TD VACCINES (1 - Tdap) 11/20/1967 PNEUMOCOCCAL VACCINE 50+ YEARS (1 of 1 - PCV) 11/19/18 99 ZOSTER VACCINE (1 of 2) 1998 OSTEOPOROSIS SCREENING 2013 RSV VACCINE (60+ or ) (1 - 1-dose 75+ series) 11/20/2023 INFLUENZA VACCINE (#1) 2025 05/09/2008 Insurance MEDICARE PART A AND B [facility] Care Teams Straight Knife Machine Cutter Relationship Specialty Start Date End Date Sanjay Najera Sr., FNP [address] [place] [address] PCP - General 10/16/20
--- OUTSIDE RECORDS SUMMARY | 2025-06-16 12:07 | XMS_ITS | Encounter Summary ---
Author Organization [facility] Address [address] [place] [address] Care Team Providers Care Airplane Patrol Pilot Name Role Phone LYNETTE Najera Sr., Michael Dave Primary Care Pro vider Encounter Details Date Type Department Care Team (Latest Contact Info) Description 07/17/2002 Outpatient Historical [facility] [place] [address] [facility] [address] [place] [phone] Jose Nielsen DO NO ADDRESS ON FILE LABYRINTHITIS NOS (Primary Dx) Social History Tobacco Use Types Packs/Day Years Used Date Smoking Tobacco: Never Assessed Comments Unknown Sex and Gender Information Value Date Recorded Sex Assigned at Not on file Legal Sex Female 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
--- OUTSIDE RECORDS SUMMARY | 2025-06-16 12:07 | XMS_ITS | Encounter Summary ---
Author Organization [facility] Address [address] [place] [address] Care Team Providers Care Crane Manager Name Role Phone LYNETET Najera Sr., Michael Dave Primary Care Pro vider Encounter Details Date Type Department Care Team (Latest Contact Info) Description 03/07/2002 Outpatient Historical [facility] [place] [address] [facility] [address] [place] [phone] Jose Nielsen DO NO ADDRESS ON FILE DIZZINESS AND GIDDINESS (Primary Dx); LOSS OF WEIGHT Social History Tobacco Use Types Packs/Day Years Used Date Smoking Tobacco: Never Assessed Comments Unknown Sex and Gender Information Value Date Recorded Sex Assigned at Not on file 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
--- OUTSIDE RECORDS SUMMARY | 2025-06-16 12:07 | XMS_ITS | Clinical Summary ---
Author Organization [facility] Address [address] [facility] [facility] [address] [place] [address] Phone Care Team Providers Care Boot And Shoe Laborer Name Role Phone Dania Gomez, LYNETTE, Sanjay Hickey Primary Care Pro vider Allergies Active Allergy Reactions Criticality Noted Date Comments Meperidine Nausea and Vomiting Low 02/24/2016 Medications triamterene-hyd roCHLOROthiazid e (DYAZIDE) 37.5-25 mg capsule Take 1 Capsule by mouth daily garage manager. Active raNITIdine (ZANTAC) 150 mg tablet Take 150 mg by mouth 2 times daily. Active pravastatin (PRAVACHOL) 40 mg tablet Take 40 mg by mouth Daily LATE. Active omeprazole (PriLOSEC) 40 mg Capsule, Delayed Release(E.C.) Take 40 mg by mouth daily. 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 Gender Identity Not on file Sexual Orientation Not on file Last Filed Vital Signs Vital Sign Reading Time Taken Comments Blood Pressure 110/79 02/24/2016 1:56 PM CDT Pulse - - Temperature 36.6 C (97.8 F) 02/24/2016 1:56 PM CDT Respiratory Rate 16 02/24/2016 1:56 PM CDT Oxygen Saturation 98% 02/24/2016 1:56 PM CDT Inhaled Oxygen Concentration - - Weight 92.7 kg (204 lb 6.4 oz) 02/24/2016 1:29 P M CDT Height 170.2 cm (5' 7 ) 02/24/2016 1:29 PM CDT Body Mass Index 32.01 02/24/2016 1:29 PM CDT Plan of Treatment Health Maintenance Due Date Last Done Comments DTAP/TDAP/TD VACCINES (1 - Tdap) 11/20/1967 PNEUMOCOCCAL VACCINE 50+ YEARS (1 of 1 - PCV) 11/19/18 99 ZOSTER VACCINE (1 of 2) 1998 OSTEOPOROSIS SCREENING 2013 RSV VACCINE (60+ or ) (1 - 1-dose 75+ series) 11/20/2023 INFLUENZA VACCINE (#1) 2025 05/09/2008 Insurance MEDICARE PART A AND B [facility] Member Subscriber Plan / Payer (Ef fective 2013-Present) Name:Angela Lawler Relation to Subscriber:Self Name:Dennyvladislav Angela E Payer ID:[id number] (NAIC) Group ID:[id number] Type:Commercial Address: [facility] [id number] DUAL COMPLETE MCR PPO D-SNP Care Teams Boot And Shoe Laborer Relationship Specialty Start Date End Date Dania Gomez, LYNETTE Deleon [address] [place] [address] PCP - General NURSE PRACTITIONER 04/01/15
[2025-06-16 12:13] VITALS: BP 123/49; PULSE 61; RESP 16; TEMP 37.2; O2SAT 96; BMI 32.5
--- NOTE | 2025-06-16 12:14 | USR_ITS ---
PROCEDURE INFORMATION: Exam: US Duplex Left Lower Extremity Veins, Limited Exam date and time: 06/16/2025 12:38 PM Age: 74 years old Clinical indication: Pain; Leg, upper and leg, lower; Left; Additional info: Left-sided calf pain and swelling concern for dvt TECHNIQUE: Imaging protocol: Real-time duplex ultrasound of the left extremity with 2-D kraft scale, color Doppler flow and spectral waveform analysis including responses to compression and other maneuvers (when performed) with image documentation. Limited exam focused on the left lower extremity veins. COMPARISON: CT abdomen pelvis wo con [id number] 09/24/2024 12:02 PM FINDINGS: Left deep veins: Unremarkable. The common femoral, femoral, proximal profunda femoral and popliteal veins are patent without thrombus. Normal Doppler waveforms. Normal compressibility and/or augmentation response. Superficial veins: Greater saphenous vein at the saphenofemoral junction is patent without thrombus. Soft tissues: There is demonstration of a oval-shaped area of fluid accumulation in the left popliteal fossa may represent small popliteal cyst this is measured at 2 x 0.6 x 2.8 cm. US/CV venous duplex [facility] [id number] IMPRESSION: No evidence of deep vein thrombosis. Soft tissue findings in the left popliteal fossa as above
--- NOTE | 2025-06-16 12:27 | ED_ITS ---
HPI - Extremity Problem 2 General: Chief complaint: Extremity Problem,Nontraumatic Stated complaint: L hip and leg pain, swelling in leg Time Seen by Provider: 06/16/25 12:07 History of Present Illness: 74-year-old female with a history of c l eft trochanteric bursitis pain being treated by orthopedics with local steroid injections, chronic anticoagulation on Xarelto, chronic left hip pain, diastolic heart failure, type 2 diabetes, anemia, GERD, hypertension and atrial fibrillation who presents emergency room with left leg swelling and pain. There is also been some bruising. She says this all started after she had a injection in orthopedic clinic on the left side the other day. She has been taking her blood thinners. She has some bruising along the knee and the upper inner thigh. No chest pain. No shortness of breath. Related Data Home Medications ?Medication ?Instructions ?Recorded ?Confirmed metoprolol tartrate 50 mg tablet 50 mg PO ONCE 5 06/10/25 ferrous sulfate 325 mg (65 mg 325 mg PO BID 01/25/25 1 08/11/24 iron) tablet (FeroSul) ibuprofen 600 mg tablet (IBU) 600 mg PO Q8H PRN Pain 0 01/25/25 06/10/25 Held on 01/30/25. Instructions: Resume on 02/01/25. Previous Rx's ?Medication ?Instructions ?Recorded COVID vac -(12up)(Mod)(PF) 50 0.5 ml IM ONCE 1 day #5 mL 03/26/25 mcg/0.5 mL IM syringe (Spikevax 4933-6718(12y up)(PF)) pravastatin 40 mg tablet 40 mg PO QPM #90 tabs pantoprazole 20 mg tablet,delayed See Rx Instructions .Route 03/29/25 release .COMPLEX #90 tabs amiodarone 200 mg tablet 200 mg PO DAILY #90 tabs rivaroxaban 20 mg tablet (Xarelto) See Rx Instructions .Route 05/06/25 .COMPLEX #90 tabs potassium chloride 20 mEq See Rx Instructions .Route 1 08/03/24 tablet,extended .COMPLEX #60 tabs release(part/cryst) (Klor-Con M) furosemide 20 mg tablet See Rx Instructions .Route 1 08/05/24 .COMPLEX #90 tabs prednisone 20 mg tablet See Rx Instructions PO DAILY #10 06/10/25 tabs tramadol 50 mg tablet 50 mg PO TID PRN pain #21 ta bs 06/10/25 hydrocodone 5 mg-acetaminophen 325 1 tab PO Q8H PRN pa in #14 tabs 06/16/25 mg tablet polyethylene glycol 3350 17 17 g PO DAILY #510 grams 1 08/17/24 gram/dose oral powder (Miralax) Allergies Allergy/AdvReac Type Severity Reaction Status Date / Time verapamil AdvReac Intermediate Unknown Verified 06/10/25 08:11 meperidine (From Demerol) AdvReac Mild Nausea,vomi Verified 06/10/25 08:11 ting diltiazem (From Cardizem) AdvReac Unknown Verified 06/10/25 08:11 Review of Systems 2 Narrative: Constitutional symptoms: Negative except as documented in HPI. Skin symptoms: Negative except as documented in HPI. Eye symptoms: Negative except as documented in HPI. ENMT symptoms: Negative except as documented in HPI. Respiratory symptoms: Negative except as documented in HPI. Cardiovascular symptoms: Negative except as documented in HPI. Gastrointestinal symptoms: Negative except as documented in HPI. Genitourinary symptoms: Negative except as documented in HPI. Musculoskeletal symptoms: Negative except as documented in HPI. Neurologic symptoms: Negative except as documented in HPI. Psychiatric symptoms: Negative except as documented in HPI. Endocrine symptoms: Negative except as documented in HPI. PFSH ED 2 PFSH: Medical History (Updated 06/16/25 @ 13:18 by Alethea Flowers MD) Primary localized osteoarthritis of left hip Greater trochanteric bursitis of left hip Hip pain, chronic Schatzki's ring History of fracture of left hip 1977 (no surgery) History of fractured pelvis 1977 Postmenopausal osteoporosis Screening mammogram, encounter for Contact dermatitis due to plant Right-sided low back pain with sciatica Enrolled in chronic care management GERD (gastroesophageal reflux disease) 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 complications Atrial fibrillation Surgical History History of tonsillectomy H/O tubal ligation History of cataract surgery 2009 Family History Sister Cancer Mother Hypertension Heart failure CAD (coronary artery disease) Father Stroke Grandmother CAD (coronary artery disease) Family/Other CAD (coronary artery disease) Diabetes Suicide Social History Smoking and tobacco/nicotine status: never used tobacco/nicotine Alcohol intake: current Alcohol intake frequency: 0-2 Drinks per Day Substance/Drug Use: never Lives independently: Yes Marital status: Current occupational status: retired Do you think of yourself as: Straight/Heterosexual Current gender identity: Female Physical Exam 2 Narrative: EXAM NARRATIVE: General: Alert, no acute distress. Skin: Warm, dry. Head: Normocephalic, atraumatic. Neck: Supple, trachea midline. Eye: Extraocular movements are intact. Ears, nose, mouth and throat: mucosa moist. Cardiovascular: Regular, Normal peripheral perfusion. Respiratory: Lungs are clear to auscultation, respirations are non-labored, breath sounds are equal, Symmetrical chest wall expansion. Gastrointestinal: Soft, Nontender, Non distended Musculoskeletal: Normal ROM, no deformity. Patient does have quite a bit of swelling in the left leg. Some bruising on the medial side of the left knee. Also bruising in the upper thigh area. Neurological: Alert and oriented, No focal neurological deficit observed. Psychiatric: Cooperative, appropriate mood & affect. Course 2 Vital Signs: Vital signs: Vital Signs Temperature 98.9 F 06/16/25 12:13 Pulse Rate 51 L 06/16/25 13:31 Respiratory Rate 16 06/16/25 12:13 Blood Pressure 130/71 06/16/25 13:31 Pulse Oximetry 93 06/16/25 13:31 Oxygen Delivery Me thod Room Air 06/16/25 12:13 MDM - Extremity (Nontraumatic) Medical Decision Making Medical decision making Patient's reason for coming to the emergency room: Leg and hip pain with swelling Social determinants: Patient is . is present. I reviewed the patient's medical record. 74-year-old female with a history of c left trochanteric bursitis pain being treated by orthopedics with local steroid injections, chronic anticoagulation on Xarelto, chronic left hip pain, diastolic heart failure, type 2 diabetes, anemia, GERD, hypertension and atrial fibrillation I reviewed the patient's current home meds Patient is on Xarelto Alternate historians: None Differential diagnosis: including but not limited to and based on the above HPI, review of systems and physical exam: With patient with bruising and swelling would have concern for DVT, coagulopathy etc. Ultrasound left lower extremity and basic lab work were ordered. Lab Review: Laboratory results were reviewed and interpreted by myself the emergency room physician. Mild leukocytosis. Stable mild anemia Ultrasound: Some soft tissue findings in the popliteal fossa but no DVT. This was reviewed and interpreted by myself the emergency room physician. I also reviewed the radiology report. Assessment of risk: Level of risk: Moderate risk. Anticoagulated. Multiple comorbidities. Hospitalization considerations: No need for hospitalization today. Consultation: I spoke with Dr. Salter who will see the patient in the clinic tomorrow. Reexamination: Patient remained stable. No increased work of breathing. No altered mental status. No focal motor deficits. I discussed with her the findings and Dr. Salter and the provider in the Ortho clinic would see them tomorrow Assessment and plan: Leg pain and swelling with bruising Chronic anticoagulation - Discharged home - Discussed plan with patient. Answered any questions. - Evaluation and treatment of this problem were appropriate in the emergency setting. My discharge none Lab Data 06/16/25 12:34 06/16/25 12:34 Radiology Impressions Venous Duplex 06/16/25 12:14 IMPRESSION: No evidence of deep vein thrombosis. Soft tissue findings in the left popliteal fossa as above Laboratory Results WBC 11.44 10^3/uL (3.29-11.43) H 06/16/25 12:34 RBC 2.94 10^6/uL (3.85-5.65) L 06/16/25 12:34 Hgb 9.30 g/dL (11.27-16.99) L 06/16/25 12:34 Hct 29.3 % (36-47) L 06/16/25 12:34 MCV 99.7 fl (85-98) H 06/16/25 12:34 MCH 31.6 pg (27-33) 06/16/25 12:34 MCHC 31.7 g/dL (30-55) 06/16/25 12:34 RDW 15.4 % (12.1-15.1) H 06/16/25 12:34 Plt Count 311 10^3/cmm (157-399) 06/16/25 12:34 MPV 9.5 fL (7.4-10.4) 06/16/25 12:34 Neut % (Auto) 89.5 % 06/16/25 12:34 Lymph % (Auto) 4.7 % 06/16/25 12:34 [place] % (Auto) 5.2 % 06/16/25 12:34 Eos % (Auto) 0.0 % 06/16/25 12:34 Baso % (Auto) 0.1 % 06/16/25 12:34 Neut # (Auto) 10.23 10^3/uL (1.8-7.7) H 06/16/25 12:34 Lymph # (Auto) 0.5 10^3/uL (0.8-4.8) L 06/16/25 12:34 [place] # (Auto) 0.6 10^3/uL (0.2-0.9) 06/16/25 12:34 Eos # (Auto) 0.0 10^3/uL (0.0-0.8) 06/16/25 12:34 Baso # (Auto) 0.0 10^3/uL (0.0-0.1) 06/16/25 12:34 Nucleated RBC % (auto) 0 % 06/16/25 12:34 Nucleated RBCs # 0.0 /100WBC 06/16/25 12:34 PT 25.50 SECONDS (12.1-14.9) H 06/16/25 12:34 INR 2.17 (0.8-1.2) H 06/16/25 12:34 APTT 36.9 SECONDS (23.9-36.7) H 06/16/25 12:34 Sodium 135 mmol/L (136-145) L 06/16/25 12:34 Potassium 4.6 mmol/L (3.5-5.1) 06/16/25 12:34 Chloride 100 mmol/L (98-107) 06/16/25 12:34 Carbon Dioxide 25 mmol/L (22-29) 06/16/25 12:34 Anion Gap 14.6 (5-19) 06/16/25 12:34 BUN 25 mg/dL (8-23) H 06/16/25 12:34 Creatinine 0.9 mg/dL (0.5-0.9) 06/16/25 12:34 GFR Calculation Not Reportable 06/16/25 12:34 Glucose 140 mg/dL (65-115) H 06/16/25 12:34 Calculated Osmolality 287 mOsm/kg (285-295) 06/16/25 12:34 Calcium 8.3 mg/dL (8.5-10.5) L 06/16/25 12:34 Total Bilirubin 1.0 mg/dL (0.15-1.2) 06/16/25 12:34 AST 39 U/L (0-32) H 06/16/25 12:34 ALT 40 U/L (0-33) H 06/16/25 12:34 Alkaline Phosphatase 104 U/L (35-105) 06/16/25 12:34 Total Protein 6.2 g/dL (6.6-8.7) L 06/16/25 12:34 Albumin 3.7 g/dL (3.5-5.2) 06/16/25 12:34 Globulin 2.5 g/dL (1.3-4.6) 06/16/25 12:34 All radiology interpretation(s) finalized by discharge Discharge Plan Discharge Patient Disposition: Home Clinical Impression: Hematoma of left thigh, Leg edema, left, Leg pain, Back pain Condition: Stable Prescriptions: New hydrocodone-acetaminophen 5-325 mg tablet 1 tab PO Q8H PRN (Reason: pain) Qty: 14 0RF Rx Instructions: Take 1/2 to 1 tab every 8 hours as needed for pain polyethylene glycol 3350 [Miralax] 17 gram/dose powder 17 g PO DAILY Qty: 510 0RF Rx Instructions: Take 1 scoop daily while taking pain medications. No Action ferrous sulfate [FeroSul] 325 mg (65 mg iron) tablet 325 mg PO BID ibuprofen [IBU] 600 mg tablet 600 mg PO Q8H PRN (Reason: Pain) metoprolol tartrate 50 mg tablet 50 mg PO ONCE Patient Comments: pt decreasing to 1/2 tab two times daily starting 10/14 prednisone 20 mg tablet See Rx Instructions PO DAILY Qty: 10 0RF Rx Instructions: Days 1-3: 2 tabs, Days 4-6: 1 tab, Days 7&8: 0.5 tab. orally daily in the AM. tramadol 50 mg tablet 50 mg PO TID PRN (Reason: pain) Qty: 21 0RF Spikevax 3280-9266(12y up)(PF) 50 mcg/0.5 mL syringe 0.5 ml IM ONCE 1 Days Qty: 5 0RF pravastatin 40 mg tablet 40 mg PO QPM Qty: 90 0RF Rx Instructions: TAKE 1 TABLET BY MOUTH ONCE DAILY IN THE EVENING pantoprazole 20 mg tablet,delayed release (DR/EC) See Rx Instructions .ROUTE .COMPLEX Qty: 90 0RF Dose Instruction: TAKE 1 TABLET BY MOUTH ONCE DAILY IN THE MORNING ON AN EMPTY STOMACH Rx Instructions: TAKE 1 TABLET BY MOUTH ONCE DAILY IN THE MORNING ON AN EMPTY STOMACH amiodarone 200 mg tablet 200 mg PO DAILY Qty: 90 3RF Xarelto 20 mg tablet See Rx Instructions .ROUTE .COMPLEX Qty: 90 3RF Dose Instruction: TAKE ONE TABLET BY MOUTH EVERY MORNING for 90 DAYS Rx Instructions: TAKE ONE TABLET BY MOUTH EVERY MORNING potassium chloride [Klor-Con M20] 20 mEq tablet,ER particles/crystals See Rx Instructions .ROUTE .COMPLEX Qty: 60 0RF Dose Instruction: Take 1 tablet by mouth twice daily Rx Instructions: Take 1 tablet by mouth twice daily furosemide 20 mg tablet See Rx Instructions .ROUTE .COMPLEX Qty: 90 0RF Dose Instruction: TAKE 1/2 TO 1 (ONE-HALF TO ONE) TABLET BY MOUTH ONCE DAILY Rx Instructions: TAKE 1/2 TO 1 (ONE-HALF TO ONE) TABLET BY MOUTH ONCE DAILY Discharge Orders: Discharge ED (Routine); Ordered 06/16/25 Ordered By: Alethea Flowers Referrals: Karla Salter MD [Physician, Orthopedics] - 06/17/25 9:00 am Remberto Roberson FNP [Primary Care Provider, Family Practice] Discharge Diet: Usual diet Discharge Activity: Increase activity as tolerated Patient Instructions: Opioid Safety, Pain Management, Patient Portal & Vivien Instructions Activity Restrictions/Additional Instructions: Thank you for choosing [facility] for your healthcare needs today. You have been screened and evaluated and felt safe for discharge. Health conditions do change or evolve sometimes and as such it is important that you follow up with your Primary Doctor to be re checked, 3-5 days is a general good time frame for follow up. You are always welcome to return to the ED for re assessment if your symptoms are worsening or you have new concerns Print Language: Paraguayan Coding Level of Care Code ED Manager Functional for Julian Hays
[2025-06-16 12:39] LABS: Hematocrit 29.3 % (36-47); Hemoglobin 9.30 g/dL (11.27-16.99); Mean Corpuscular HGB Conc 31.7 g/dL (30-55); Mean Corpuscular Hemoglobin 31.6 pg (27-33); Mean Corpuscular Volume 99.7 fl (85-98); Nucleated Red Blood Cells % 0 %; Platelet Count 311 10^3/cmm (157-399); Red Blood Count 2.94 10^6/uL (3.85-5.65); White Blood Count 11.44 10^3/uL (3.29-11.43)
[2025-06-16 12:52] LABS: INR 2.17 (0.8-1.2); Prothrombin Time 25.50 SECONDS (12.1-14.9)
[2025-06-16 12:53] LABS: Partial Thromboplastin Time 36.9 SECONDS (23.9-36.7)
[2025-06-16 12:59] LABS: Alanine Aminotransferase 40 U/L (0-33); Albumin Level 3.7 g/dL (3.5-5.2); Alkaline Phosphatase 104 U/L (35-105); Anion Gap 14.6 (5-19); Aspartate Amino Transferase 39 U/L (0-32); Blood Urea Nitrogen 25 mg/dL (8-23); Calcium 8.3 mg/dL (8.5-10.5); Carbon Dioxide 25 mmol/L (22-29); Chloride 100 mmol/L (98-107); Globulin 2.5 g/dL (1.3-4.6); Glucose 140 mg/dL (65-115); Osmolality Calculated 287 mOsm/kg (285-295); Potassium 4.6 mmol/L (3.5-5.1); Total Protein 6.2 g/dL (6.6-8.7)
[2025-06-16 13:05] LABS: Sodium 135 mmol/L (136-145)
[2025-06-16] MEDS: HYDROcodone-acetaminophen 10-325 mg Tablet 1 TAB PO (13:30)
[2025-06-16 13:31] VITALS: BP 130/71; PULSE 51; O2SAT 93
== END 2025-06-16 13:34 | disposition home or self-care (01) ==
PROVIDERS: Emergency Provider Emergency Medicine; PCP Registered Nurse
DX: S70.12XA Contusion of left thigh, initial encounter (principal); M54.9 Dorsalgia, unspecified; I11.0 Hypertensive heart disease with heart failure; I50.30 Unspecified diastolic (congestive) heart failure; E11.9 Type 2 diabetes mellitus without complications; X58.XXXA Exposure to other specified factors, initial encounter
CPT/HCPCS: 80053; 85025; 85610; 85730; 93971; 99284; J9999

== ENCOUNTER 2025-06-17 15:46 | Outpatient (CLI) | payer MEDICARE, OTHER, SELFPAY ==
--- NOTE | 2025-06-17 16:00 | MRR_ITS ---
PROCEDURE INFORMATION: Exam: MR Left Lower Extremity Without Contrast, Femur Exam date and time: 06/17/2025 4:08 PM Age: 74 years old Clinical indication: Thigh; Chronic left hip pain/l-spine surgery on 01-30-25; Additional info: Thigh pain and swelling. Acute worsening of pain. TECHNIQUE: Imaging protocol: Magnetic resonance imaging of the left femur without contrast. COMPARISON: US CV venous duplex [facility] [id number] 06/16/2025 12:38 PM FINDINGS: Bones/joints: Visualized left femur is intact. Note that the left hip and knee are not well visualized. Consider dedicated MRI of the left hip to exclude a nondisplaced fracture. Small left hip joint effusion is noted. Soft tissues: Intramuscular hemorrhage/hematoma involving the vastus lateralis muscle extending from the proximal to distal thigh with hematoma measuring up to approximately 16 cm in length by 6 cm AP by 2.2 cm transverse. There is suspected tear of the vastus lateralis muscle. Partial tear of the rectus femoris distal myotendinous junction (grade 2 injury). Additional edema is noted of the sartorius and vastus medialis muscles, which may reflect grade [address] 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 There is diffuse soft tissue edema without superficial subcutaneous fluid collection. MR/MR femur LT wo con* [id number] IMPRESSION: 1. Intramuscular hemorrhage/hematoma involving the vastus lateralis muscle with suspected underlying high-grade muscle tear. 2. Grade 2 injury rectus femoris distal myotendinous structures. 3. Grade 1 strains of the sartorius and vastus medialis muscles. 4. Limited evaluation of the left hip and knee. Consider dedicated imaging of the left hip given joint effusion.
== END 2025-06-17 15:47 | disposition home or self-care (01) ==
LOC: RAD 15:46
PROVIDERS: PCP Registered Nurse; Visit Provider Nurse Practitioner
DX: M70.62 Trochanteric bursitis, left hip (principal); S70.12XA Contusion of left thigh, initial encounter; X58.XXXA Exposure to other specified factors, initial encounter
CPT/HCPCS: 73718; 99213

== ENCOUNTER → 2025-06-20 11:25 | Outpatient (BNVA) | payer MEDICARE, OTHER, SELFPAY | PROVIDERS: PCP Registered Nurse; Visit Provider Nurse Practitioner | DX: S76.112A Strain of left quadriceps muscle, fascia and tendon, initial encounter (principal); M70.62 Trochanteric bursitis, left hip; X58.XXXA Exposure to other specified factors, initial encounter; E78.5 Hyperlipidemia, unspecified; I50.31 Acute diastolic (congestive) heart failure; I83.893 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 complications | CPT/HCPCS: 99214 ==

== ENCOUNTER → 2025-06-26 16:14 | Outpatient (BNVA) | payer MEDICARE, OTHER, SELFPAY | PROVIDERS: PCP Registered Nurse; Visit Provider Nurse Practitioner | DX: S70.12XD Contusion of left thigh, subsequent encounter (principal); M70.62 Trochanteric bursitis, left hip; S76.112D Strain of left quadriceps muscle, fascia and tendon, subsequent encounter; X58.XXXD Exposure to other specified factors, subsequent encounter | CPT/HCPCS: G0463 ==

== ENCOUNTER → 2025-07-09 15:49 | Outpatient (BNVA) | payer MEDICARE, OTHER, SELFPAY | PROVIDERS: PCP Registered Nurse; Visit Provider Nurse Practitioner | DX: M70.62 Trochanteric bursitis, left hip (principal); S70.12XD Contusion of left thigh, subsequent encounter; Z98.1 Arthrodesis status; S76.112D Strain of left quadriceps muscle, fascia and tendon, subsequent encounter; X58.XXXD Exposure to other specified factors, subsequent encounter | CPT/HCPCS: G0463 ==